=== PATIENT | male | born 1965 | race Caucasian/White ===

== ENCOUNTER 2023-11-04 17:29 | Emergency (ER) | payer OTHER, SELFPAY ==
[2023-11-04 17:30] VITALS: BP 134/99; PULSE 98; RESP 18; TEMP 36.6; O2SAT 97
--- NOTE | 2023-11-04 17:49 | EDS_ITS ---
HPI History of Present Illness Chief Complaint: Chest Pain Informant: patient and EMS Narrative Narrative: 58-year-old male presenting to the emergency room for evaluation of chest pain. Patient states he was sitting in a lawn chair outside when he developed some shortness of breath and then a tightness in the center of his chest that seem to radiate to the left arm. He reports a history of hypertension hypercholesterolemia that is not currently treated. He also notes a history of depression that is currently not treated. He was being seen by the [facility] but states he has not been there for about 3 to 4 months because he owes them about $500. He does not see anybody for mental health currently. He states he does not have any stents in his heart but that he has had several light heart attacks at [facility]. He has never been to our hospital before. He is currently feeling better. He did not experience any wheezing. He is small amount of coughing at the time. He chews tobacco but is a non- smoker. [facility] Medical History Depression Hypertension Hypercholesteremia Myocardial infarct Allergy/AdvReac Type Severity Reaction Status Date / Time Penicillins Allergy Severe Hives Verified 11/04/23 17:44 Social History Smoking Status: Former smoker ROS ROS ED Constitutional Constitutional ED: Denies chills, fever(s) or weight loss Eyes Eyes: Denies change in vision or diplopia ENT ENT ED: Denies ear pain, rhinorrhea or sore throat Cardiovascular Cardiovascular: Reports as per HPI and chest pain; Denies orthopnea, palpitations or racing heartbeat Respiratory/Chest Respiratory/Chest: Reports cough, dyspnea and dyspnea on exertion; Denies orthopnea Gastrointestinal Gastrointestinal: Denies abdominal pain, diarrhea, nausea or vomiting Genitourinary Genitourinary ED: Denies dysuria, hematuria or urinary frequency Musculoskeletal Musculoskeletal: Denies arthralgias or myalgias Integumentary Denies abscess or rash Neurologic Neurologic: Denies headache(s) or weakness Psychiatric Psychiatric: Denies anxiety, depression, suicidal ideation or suicidal thoughts Endocrine Endocrinology: Denies polydipsia, polyphagia or polyuria Allergic/Immunologic Allergic/Immunologic ED: Denies mouth swelling, tongue swelling or urticaria EXAM Physical Exam Const Vital Signs: 11/04/23 17:30 11/04/23 17:41 11/04/23 18:30 Temperature 98 F Temperature Source Oral Pulse Rate 98 81 Respiratory Rate 18 16 Respiratory Effort Normal Short of Breath Blood Pressure 134/99 H 143/101 H Blood Pressure Mean 110 115 Pulse Ox 97 97 Oxygen Delivery Method Room Air Room Air 11/04/23 19:00 11/04/23 20:00 11/04/23 20:56 Temperature 97 F L Temperature Source Pulse Rate 91 80 Respiratory Rate 16 16 Respiratory Effort Blood Pressure 144/108 H 150/115 H 160/99 H Blood Pressure Mean 120 126 119 Pulse Ox 96 Oxygen Delivery Method Positive well nourished and well developed General Appearance ED: well developed and NAD HEENT Reports normocephalic, head/scalp atraumatic and moist mucous membranes Eyes PERRL and EOMs intact bilaterally Neck no lymphadenopathy, supple and no JVD Resp normal respiratory effort and clear to auscultation bilaterally Cardio regular rate, regular rhythm and no murmurs GI normal to inspection, nondistended, normoactive bowel sounds and non-tender Palpation: soft Back/Spine no CVA tenderness and normal ROM Extremity normal to inspection General Extremety ED: Negative for edema General Extremity: Negative for edema Neuro oriented x3 and CN's II-XII intact bilaterally Sensorium / Orientation: alert Motor Exam: strength 5/5 throughout Psych mental status grossly normal Mood & Affect: Negative for depressed or tearful Skin no rashes or lesions noted and no wounds MDM MDM MDM Narrative Medical decision making narrative: Differential diagnosis would include but not limited to DVT PE aortic dissection pneumothorax pneumonia pleural effusion hypertension congestive heart failure bronchospasm Prehospital EKG was reviewed shows a sinus rhythm at a rate of 99 bpm. Q waves noted 3 and aVF. EMS administered aspirin prior to arrival. White count 7.9 hematocrit 47.2 platelet count of 2092 sets of cardiac enzymes are within normal limits. Creatinine 1.09 sodium 135 D-dimer 0.34. Patient said no events on the monitor he remains asymptomatic. I am going to discharge him home have him establish primary care return if worsening or concerns. History & Record Review Discussion w/independent historian: EMS personnel and Patient Lab Data Attestation: I reviewed the patient's lab results. Labs: Laboratory Results - last 24 hr 11/04/23 11/04/23 17:43 20:15 WBC 7.9 RBC 5.47 Hgb 16.9 H Hct 47.2 MCV 86.3 MCH 30.9 MCHC 35.8 RDW Std Deviation 37.2 RDW Coeff of Hue 11.9 Plt Count 209 MPV 10.9 Immature Gran % (Auto) 0.400 Neut % (Auto) 53.3 Lymph % (Auto) 33.6 Barber % (Auto) 8.9 Eos % (Auto) 2.8 Baso % (Auto) 1.0 Absolute Neuts (auto) 4.2 Absolute Lymphs (auto) 2.65 Nucleated RBC % 0 D-Dimer Quant (PE/DVT) 0.34 Sodium 135 L Potassium 3.6 Chloride 102 Carbon Dioxide 24.0 Anion Gap 9 BUN 13 Creatinine 1.09 Est GFR (MDRD) Af Amer 90 Est GFR (MDRD) Non-Af 74 BUN/Creatinine Ratio 11.9 Glucose 157 H Calcium 9.3 Troponin I High Sens 41 38 Radiography Diagnostic Testing: Clinical Impression(s) from Imaging Studies Chest X-Ray 11/04/23 18:10 IMPRESSION: Normal x-ray examination of the chest. Electronically Signed: Siddharth Huizar MD at 18:33 EDT , EKG Initial EKG: Attestation: I personally reviewed and interpreted this EKG as follows: Comments: Normal sinus rhythm ventricular rate of [address] elevation or significant depression noted. Discharge Plan Triage Chief Complaint: Chest Pain ED Provider: Rock Hurst Dx/Rx/DC Orders Clinical Impression: Chest pain Instructions: ED Chest Pain, Uncertain Cause [facility] - As soon as possible Print Language: Lebanese Disposition Disposition: Home, Self Care Discharge Date/Time: 11/04/23 20:57
--- NOTE | 2023-11-04 17:49 | EKG12_ITS ---
Test Reason : CHEST PAIN Blood Pressure : / mmHG Vent. Rate : 100 BPM Atrial Rate : 100 BPM P-R Int : 192 ms QRS Dur : 108 ms QT Int : 364 ms P-R-T Axes : 012 017 -07 degrees QTc Int : 469 ms Normal sinus rhythm Inferior infarct , age undetermined Cannot rule out Anterior infarct , age undetermined Abnormal ECG Confirmed by REAGAN MARTINEZ, WENDY ([id number]), assignment editor SAE ORTEGA ([id number]) on 11/08/2023 8:12:53 AM Referred By: Confirmed By:WENDY KIRK MD
[2023-11-04 18:05] LABS: Absolute Lymphocyte Count 2.65 X10^3/uL (0.83-4.51); Absolute Neutrophil Count 4.2 X10^3/uL (2.0-7.7); Basophil# 0.08 X10^3/uL; Eosinophil# 0.22 X10^3/uL; Eosinophils% 2.8 % (0-5); Hematocrit 47.2 % (40-54); Hemoglobin 16.9 g/dL (13.0-16.5); Lymphocyte # 2.65 X10^3/ul (0.83-4.51); Lymphocyte % 33.6 % (19-41); Mean Corp Hgb Conc 35.8 g/dL (32-36); Mean Corpuscular Hgb 30.9 pg (27.0-32.0); Mean Corpuscular Volume 86.3 fL (80-94); Mean Platelet Vol. 10.9 fl (6.2-12.0); Monocyte% 8.9 % (0-10); NRBC Flagged by Analyzer 0 % (0-5); Neutrophil % 53.3 % (47-70); Platelet Count 209 K/mm3 (150-450); RBC Distribution Width CV 11.9 % (11.6-14.6); RBC Distribution Width SD 37.2 fl (35.1-43.9); Red Blood Count 5.47 M/mm3 (4.6-6.2); White Blood Count 7.9 K/mm3 (4.4-11.0)
--- NOTE | 2023-11-04 18:10 | RAD_ITS ---
STUDY: X-RAY CHEST REASON FOR EXAM: Male, 58 years old. chest pain TECHNIQUE: Single AP portable view of the chest. COMPARISON: None. FINDINGS: The lungs are clear and expanded. There is no demonstrated pleural abnormality. Normal size heart. Normal mediastinum and liam. Normal visualized pulmonary arteries. Normal visualized aortic arch and descending thoracic aorta. Normal visualized thoracic spine. Normal visualized ribs, clavicles, and shoulders. There is no demonstrated abnormality of the visualized soft tissue structures of the upper abdomen. RAD/Chest 1 View (Portable) IMPRESSION: Normal x-ray examination of the chest. Electronically Signed: Siddharth Huizar MD at 18:33 EDT ,
[2023-11-04 18:16] LABS: D-Dimer Quantitative (DVT/PE) 0.34 FEU/ug/m (0.27-0.49)
[2023-11-04 18:30] VITALS: BP 143/101; PULSE 81; RESP 16; O2SAT 97
[2023-11-04 18:34] LABS: Anion Gap 9 (5-15); BUN 13 mg/dL (7-18); BUN/Creat Ratio 11.9 RATIO (10-20); Calcium,Total 9.3 mg/dL (8.5-10.1); Chloride 102 mmol/L (98-107); Creatinine, Serum 1.09 mg/dL (0.70-1.30); EST Glomerular Filtration Rate 74 mL/min (>60); Est Glom Filt Rate - Afr Amer 90 mL/min (>60); Glucose 157 mg/dL (74-106); Potassium 3.6 mmol/L (3.5-5.1); Sodium Level 135 mmol/L (136-145); Troponin-I HS (w/2H Reflex) 41 pg/mL (3.0-78.0)
[2023-11-04 19:00] VITALS: BP 144/108; PULSE 91; RESP 16
[2023-11-04 20:00] VITALS: BP 150/115
[2023-11-04 20:02] LABS: Reflex Troponin-HS? (from REC) Y
[2023-11-04 20:38] LABS: Troponin-I HS 38 pg/mL (3.0-78.0)
[2023-11-04 20:56] VITALS: BP 160/99; PULSE 80; RESP 16; TEMP 36.1; O2SAT 96
== END 2023-11-04 20:57 | disposition home or self-care (01) ==
PROVIDERS: Emergency Provider Emergency Medicine; Visit Provider Emergency Medicine
DX: R07.9 Chest pain, unspecified (principal); I10 Essential (primary) hypertension; F17.220 Nicotine dependence, chewing tobacco, uncomplicated; E78.00 Pure hypercholesterolemia, unspecified; I25.2 Old myocardial infarction
CPT/HCPCS: 71045; 80048; 84484; 85025; 85379; 93005; 99283; A4216

== ENCOUNTER 2024-11-30 14:30 | Inpatient (IN) | payer SELFPAY ==
[2024-11-30] VITALS (28 sets, daily range): BP systolic 98–219; BP diastolic 69–136; PULSE 49–99; RESP 12–24; TEMP 36.2–38.3; O2SAT 95–100; BMI 28.3; BMI 28.5
--- NOTE | 2024-11-30 14:54 | EKG12_ITS ---
Test Reason : Blood Pressure : */* mmHG Vent. Rate : 80 BPM Atrial Rate : 80 BPM P-R Int : 202 ms QRS Dur : 118 ms QT Int : 402 ms P-R-T Axes : 50 21 17 degrees QTcB Int : 463 ms Normal sinus rhythm Left ventricular hypertrophy with QRS widening ( Sokolow-Maya , Gregory product ) Abnormal ECG Confirmed by CHRIS MARTINEZ, ИВАН ([id number]), advertising editor SAE ORTEGA ([id number]) on 12/04/2024 6:02:03 AM Referred By: MAYNOR Confirmed By: ИВАН PEREZ MD
--- NOTE | 2024-11-30 15:12 | EX.ED.CRITCA ---
HPI History of Present Illness Chief Complaint: Sore Throat Detail of Chief Complaint: Sore throat that started couple days ago. Informant: patient Onset/Context/Timing Onset: Days Context: Gradual Onset Timing: Continuous Quality: Patient does not complain of pain he complains of difficulty speaking Location: Upper airway Mechanism/Context: Yes other Current Severity: Severe Maximum Severity: Severe Worsened by: JENNA inhibitor Relieved by: Nothing Associated Symptoms Associated Symptoms: cough Narrative Narrative: Patient is a 59-year-old male. He presents because of change in his voice, difficulty swallowing and increased swelling of his lower lip. He is on lisinopril. He is on no anticoagulant. He denied fever, chills night sweats. He denied rhinorrhea, congestion, postnasal drainage. He does not complain of throat pain he is having difficulty swallowing. He does report mild cough because of difficulty clearing his secretions. He has had some drooling. He denies chest pain, pressure, tightness or heaviness. He denies abdominal pain, nausea, vomiting or diarrhea. Prior similar symptoms: No Recent Illness/Hospitalization: No PFSH PFSH Medical History Depression Hypertension Hypercholesteremia Myocardial infarct Allergy/AdvReac Type Severity Reaction Status Date / Time Penicillins Allergy Severe Hives Verified 11/30/24 14:31 Family History no significant family his Social History Smoking Status: Former smoker ROS ROS ED Constitutional Constitutional ED: Denies chills, fever(s), subjective or sweats Eyes Eyes: Denies blurry vision or change in vision ENT ENT ED: Denies ear pain, rhinorrhea or sore throat Cardiovascular Cardiovascular: Denies chest pain, orthopnea, palpitations, paroxysmal nocturnal dyspnea or racing heartbeat Respiratory/Chest Respiratory/Chest: Denies cough, dyspnea, dyspnea on exertion, orthopnea or paroxysmal nocturnal dyspnea Gastrointestinal Gastrointestinal: Denies abdominal pain, diarrhea, nausea or vomiting Genitourinary Genitourinary ED: Denies dysuria, hematuria or urinary frequency Musculoskeletal Musculoskeletal: Denies arthralgias, myalgias or neck pain Integumentary Denies rash Neurologic Neurologic: Denies headache(s), paresthesias or weakness Hematologic/Lymphatic Hematologic/Lymphatic: Denies easy bleeding or easy bruising EXAM Physical Exam Const Vital Signs: 11/30/24 14:31 11/30/24 15:15 11/30/24 15:23 Temperature 98.7 F 97.6 F L Temperature Source Oral Core Pulse Rate 73 99 79 Respiratory Rate 24 H 15 13 Blood Pressure 172/108 H 181/124 H Blood Pressure Mean 129 143 Blood Pressure Position Supine Blood Pressure Location Right Arm Pulse Ox 97 100 95 Oxygen Delivery Method Room Air Mechanical Ventilator Fraction of Inspired Oxygen (FIO2) 40 11/30/24 15:45 11/30/24 15:45 11/30/24 16:00 Temperature Temperature Source Pulse Rate 71 72 83 Respiratory Rate 18 19 H Blood Pressure 196/120 H 196/120 H 208/125 H Blood Pressure Mean 145 145 152 Blood Pressure Position Blood Pressure Location Pulse Ox 100 Oxygen Delivery Method Mechanical Ventilator Fraction of Inspired Oxygen (FIO2) 11/30/24 16:05 11/30/24 16:15 11/30/24 16:15 Temperature 97.6 F L Temperature Source Pulse Rate 67 68 Respiratory Rate 14 15 Blood Pressure 208/125 H 219/128 H Blood Pressure Mean 152 158 Blood Pressure Position Blood Pressure Location Pulse Ox 100 Oxygen Delivery Method Fraction of Inspired Oxygen (FIO2) 30 11/30/24 16:19 11/30/24 16:30 11/30/24 16:41 Temperature 98 F Temperature Source Core Pulse Rate 71 73 Respiratory Rate 18 20 H Blood Pressure 203/124 H Blood Pressure Mean 150 Blood Pressure Position Blood Pressure Location Pulse Ox 100 99 Oxygen Delivery Method Mechanical Ventilator Mechanical Ventilator Fraction of Inspired Oxygen (FIO2) 30 11/30/24 16:51 11/30/24 16:52 11/30/24 16:59 Temperature 98.1 F Temperature Source Core Pulse Rate 65 67 98 Respiratory Rate 19 H 15 17 Blood Pressure 175/109 H 175/109 H Blood Pressure Mean 131 131 Blood Pressure Position Blood Pressure Location Pulse Ox 100 100 Oxygen Delivery Method Mechanical Ventilator Mechanical Ventilator Fraction of Inspired Oxygen (FIO2) 11/30/24 17:08 Temperature Temperature Source Pulse Rate 61 Respiratory Rate 15 Blood Pressure 171/136 H Blood Pressure Mean 147 Blood Pressure Position Blood Pressure Location Pulse Ox 100 Oxygen Delivery Method Mechanical Ventilator Fraction of Inspired Oxygen (FIO2) Positive well nourished and well developed Constitutional Narrative: Patient has a muffled voice. He admits to difficulty swallowing and throat swelling. General Appearance ED: well developed; Negative for pallor HEENT HEENT Narrative: Patient has swelling of his lower lip in comparison to the upper. His tongue is enlarged. Uvula is slightly edematous. Patient has fullness predominantly submental area. There is no firmness floor of the mouth. Patient does have poor dentition. He denies inability to open or close his mouth completely. normocephalic and atraumatic Eyes PERRL and EOMs intact bilaterally General Eye ED: Negative for pale conjunctiva or scleral icterus Neck full ROM, no lymphadenopathy and supple Neck Narrative: Patient has both inspiratory and expiratory stridor. Chest Wall Chest Narrative: Normal Resp Resp Narrative: Transmission of upper airway sounds into his lungs. There is no expiratory wheezing. There is no rales noted. Cardio regular rate, regular rhythm, S1 normal heart sound, S2 normal heart sound and no murmurs GI non-tender, non-distended and no masses Auscultation: normoactive bowel sounds Palpation: soft Extremity Extremity Narrative: There is no clubbing, cyanosis or mottling of his extremities. Neuro oriented x3, CN's II-XII intact bilaterally and no sensory deficits noted Sensorium / Orientation: alert Speech: Negative for speech normal Skin General Skin Exam: Negative for jaundice or pallor Lesions: no lesions Rashes: no rashes MDM MDM MDM Narrative Medical decision making narrative: Patient has angioedema due to JENNA inhibitor. Patient was moved from room 16 to room 1. He was prepped for oral tracheal intubation by RSI technique. He was preoxygenated with 100% oxygen by nonrebreather mask. He received 20 mg of etomidate followed by 71 mg of rocuronium. He was intubated successfully first attempt with a 7.5 endotracheal tube. Patient may have aspirated since there was a collection of secretions near the epiglottis, aryepiglottic fold and vocal cords. Endotracheal tube is 24 cm at the gum. There is appropriate color change on the capnometer. Breath sounds were noted bilaterally. Orogastric tube was placed by me. Naik has been placed by nursing staff. History & Record Review Discussion w/independent historian: Patient Lab Data Attestation: I reviewed the patient's lab results. Lab results narrative: CBC is normal. Basic metabolic panel and liver profile normal. Labs: Laboratory Results - last 24 hr 11/30/24 15:00 WBC 8.3 RBC 5.07 Hgb 16.0 Hct 45.2 MCV 89.2 MCH 31.6 MCHC 35.4 RDW Std Deviation 37.5 RDW Coeff of Hue 11.7 Plt Count 192 MPV 10.3 Immature Gran % (Auto) 0.400 Neut % (Auto) 67.4 Lymph % (Auto) 18.2 L Brooks % (Auto) 11.8 H Eos % (Auto) 1.4 Baso % (Auto) 0.8 Absolute Neuts (auto) 5.6 Absolute Lymphs (auto) 1.51 Nucleated RBC % 0 Sodium 138 Potassium 4.0 Chloride 103 Carbon Dioxide 24.2 Anion Gap 11 BUN 14 Creatinine 0.76 Estim Creat Clear Calc 117.13 Est GFR (MDRD) Non-Af 105 BUN/Creatinine Ratio 18.7 Glucose 91 Calcium 9.5 Total Bilirubin 0.58 AST 14 ALT 10 Alkaline Phosphatase 79 Total Creatine Kinase 59 Total Protein 7.4 Albumin 4.4 Globulin 3.0 Albumin/Globulin Ratio 1.5 Triglycerides 122 ABG Data ABG results: ABG 11/30/24 16:18 Specimen Type ART Sample Site L Brach pH 7.48 H Bicarbonate Actual 27.7 H Total CO2 29 Base Excess 4 H O2 Saturation 96 O2 % 30.0 ABG pCO2 37.4 ABG pO2 78 Norbert Test Positive Respiration Rate 12 O2 Delivery Device Adult Vent Vent Mode AC/VC Tidal Volume 450.0 POC PEEP 5 Radiography Chest X-Ray - ED: 1 View and Read by ED Physician (Single view chest x-ray reveals orogastric tube in proper position. Endotracheal tube was advanced to additional centimeter. He does not have good inspiratory volume.) Diagnostic Testing: Clinical Impression(s) from Imaging Studies Chest X-Ray 11/30/24 15:23 IMPRESSION: Hypoventilation. Platelike atelectasis. Nasogastric tube is in place. Consider advancing 4-6 cm for more optimal positioning. Satisfactory position of the endotracheal tube. Reading Location: [id number] Initial EKG: Attestation: I personally reviewed and interpreted this EKG as follows: Interpretation: Sinus Rhythm (Rate is 80. SC interval is 202 ms. Cures duration is prolonged at 118 ms QT is 402 ms. Toivola is normal. There is evidence of LVH with nonseptic changes/repolarization. There is no acute ischemic changes.) Management Discussion w/another healthcare provider: Hospitalist ( Will speak with Dr. Vicente for admission for angioedema due to JENNA inhibitor.) Critical Care Time Critical Care Time: Yes Critical care time (excluding procedures): 30-74 minutes (33), Including time spent: (History, physical, documentation, explaining to the patient what needed to be done and why.), Discussing w/Patient &/or Family/[employer] Car Operator, Discussing w/Consultants (Hospitalist and cfo controller.), Arranging Admission or Transfer and Performing Direct Patient Care at Bedside Discharge Plan Dx/Rx/DC Orders Clinical Impression: Angioedema of intestine due to angiotensin converting enzyme inhibitor (JENNA-I), Biphasic stridor, Hypertension Disposition Disposition: Acute Care Hospital [facility]
[2024-11-30] MEDS: 0.9% Normal Saline (1000mL) 1,000 ML 150 ML IV ×2 (15:17→20:12)
[2024-11-30 15:20] LABS: Hematocrit 45.2 % (40-54); Hemoglobin 16.0 g/dL (13.0-16.5); Immature Granulocytes Count 0.030 X10^3/uL (0.0-0.0); Mean Corp Hgb Conc 35.4 g/dL (32-36); Mean Corpuscular Volume 89.2 fL (80-94); Mean Platelet Vol. 10.3 fl (6.2-12.0); NRBC Flagged by Analyzer 0 % (0-5); Platelet Count 192 K/mm3 (150-450); RBC Distribution Width CV 11.7 % (11.6-14.6); RBC Distribution Width SD 37.5 fl (35.1-43.9); Red Blood Count 5.07 M/mm3 (4.6-6.2); White Blood Count 8.3 K/mm3 (4.4-11.0)
[2024-11-30] MEDS: Propofol 10MG/Ml 1,000 MG/100 ML Bottle 5.2 MG CONT INF (15:23)
--- NOTE | 2024-11-30 15:23 | RAD_ITS ---
PROCEDURE: CHEST 1 VIEW (PORTABLE) 11/30/2024 REASON FOR EXAM: INTUBATION TECHNIQUE: Frontal view of the chest. COMPARISON: November 04, 2023 FINDINGS: Hardware: Endotracheal tube is in satisfactory position above the layne. Nasogastric tube is in place and follows the course of the esophagus and crosses the diaphragm. The side hole is near the GE junction. The tip is overlying the body of the stomach. Heart: Mildly enlarged. Lungs: Hypoventilation. Platelike atelectasis right perihilar region and left lower lobe. Bones: The bones are unremarkable. RAD/Chest 1 View (Portable) IMPRESSION: Hypoventilation. Platelike atelectasis. Nasogastric tube is in place. Consider advancing 4-6 cm for more optimal posit ioning. Satisfactory position of the endotracheal tube. Reading Location: [id number]
--- NOTE | 2024-11-30 15:33 | ED.RN ---
Pt intubated at 1510
[2024-11-30 15:46] LABS: AST(SGOT) 14 U/L (<=37); Alanine Aminotransfer ALT/SGPT 10 U/L (<=46); Albumin, Serum 4.4 g/dL (3.5-5.0); Alkaline Phosphatase 79 U/L (40-129); Anion Gap 11 (5-15); BUN 14 mg/dL (4-19); BUN/Creat Ratio 18.7 RATIO (10-20); Calcium,Total 9.5 mg/dL (7.6-11.0); Carbon Dioxide 24.2 mmol/L (21.0-32.0); Chloride 103 mmol/L (98-108); Estimated Creatinine Clearance 117.13 ml/min (50-250); Globulin 3.0 g/dL (2.2-4.2); Glucose 91 mg/dL (70-99); Potassium 4.0 mmol/L (3.3-5.1)
--- NOTE | 2024-11-30 15:57 | PCM.HP.STD ---
HPI - General General Date of Admission: 11/30/24 Date of Service: 11/30/24 Chief Complaint: Lip swelling and difficulty swallowing HPI Narrative BENJAMIN HAWKINS, is a 59 M who presented to [facility] ED on 11/30/2024 with lip swelling and difficulty swallowing. Medical history significant for hypertension. Unclear how long patient has been on an JENNA inhibitor for. Last dose was this morning. No prior history of angioedema. He reports a sore throat that began a few days ago. Over that time frame he has noticed increased lip swelling, difficulty swallowing and change in his voice. ED physician noted that on exam the patient had swelling of the lower lip compared to the upper, enlarged tongue, uvula slightly edematous and fullness in the submental area. Given concern for angioedema, decision was made to intubate the patient in the ED. ED physician noted some swelling in the palate during intubation but the intubation was successful. Hospitalist was then contacted for admission. I saw the patient bedside in the ED. Patient was sedated and intubated. He was making some nonpurposeful movements but was not following any commands. Will be admitted for further management. [facility] Medical History Depression Hypertension Hypercholesteremia Myocardial infarct Allergy/AdvReac Type Severity Reaction Status Date / Time Penicillins Allergy Severe Hives Verified 11/30/24 14:31 Family History no significant family his Social History Smoking Status: Former smoker ROS Review of Systems ROS Unobtainable: due to endotracheal tube Vital Signs Vital Signs Vital Signs: 11/30/24 14:31 11/30/24 15:23 11/30/24 15:45 Temperature 98.7 F 97.6 F L Temperature Source Oral Core Pulse Rate 73 79 71 Respiratory Rate 24 H 13 18 Blood Pressure 172/108 H 181/124 H 196/120 H Blood Pressure Mean 129 143 145 Blood Pressure Position Supine Blood Pressure Location Right Arm Pulse Ox 97 95 100 Oxygen Delivery Method Room Air Mechanical Ventilator Mechanical Ventilator Weight Weight: 87 kg Body Mass Index (BMI) 28.3 Physical Exam Const average body habitus Constitutional Narrative: Intubated and sedated. Nonpurposeful movements noted but otherwise not following commands. HEENT normocephalic, head/scalp atraumatic and moist oral mucous membranes HEENT Narrative: ET tube in place. Lower lip swelling noted. Eyes PERRL, EOMs intact bilaterally and conjunctivae normal Neck supple Chest inspection of chest normal Resp Resp Narrative: Moderate rhonchi noted in mid lung zone on the right. Otherwise good air movement throughout bilaterally with no wheezing noted. Cardio regular rate, regular rhythm, no murmurs and peripheral pulses 2+ throughout GI normal to inspection, nondistended, normoactive bowel sounds, soft to palpation, non-tender and non-distended Extremity normal to inspection and no pedal edema Skin no rashes or lesions noted Results Lab / Micro Data 11/30/24 15:00 11/30/24 15:00 Labs: Laboratory Results - last 24 hr 11/30/24 15:00: WBC 8.3, RBC 5.07, Hgb 16.0, Hct 45.2, MCV 89.2, MCH 31.6, MCHC 35.4, RDW Std Deviation 37.5, RDW Coeff of Hue 11.7, Plt Count 192, MPV 10.3, Immature Gran % (Auto) 0.400, Neut % (Auto) 67.4, Lymph % (Auto) 18.2 L, [place] % (Auto) 11.8 H, Eos % (Auto) 1.4, Baso % (Auto) 0.8, Absolute Neuts (auto) 5.6, Absolute Lymphs (auto) 1.51, Nucleated RBC % 0, Sodium 138, Potassium 4.0, Chloride 103, Carbon Dioxide 24.2, Anion Gap 11, BUN 14, Creatinine 0.76, Estim Creat Clear Calc 117.13, Est GFR (MDRD) Non-Af 105, BUN/Creatinine Ratio 18.7, Glucose 91, Calcium 9.5, Total Bilirubin 0.58, AST 14, ALT 10, Alkaline Phosphatase 79, Total Protein 7.4, Albumin 4.4, Globulin 3.0, Albumin/Globulin Ratio 1.5 Imaging Radiology Impression Chest X-Ray 11/30/24 15:23 IMPRESSION: Hypoventilation. Platelike atelectasis. Nasogastric tube is in place. Consider advancing 4-6 cm for more optimal positioning. Satisfactory position of the endotracheal tube. Reading Location: [facility] Assessment & Plan Assessment/Plan (1) Angioedema: PLAN: Plan Patient is a 59-year-old male who presented to [facility] ED on 11/30/2024 with lip swelling and difficulty swallowing. 1. Angioedema ? Admit under inpatient status to ICU. Set O Type Operator consulted. Presented with lip swelling, difficulty swallowing and change in voice. Intubated in the ED for airway protection. Unclear how long patient has been on JENNA inhibitor; last dose was on morning of admission. No prior history of angioedema. Highest concern is for JENNA inhibitor induced angioedema but cannot rule out other causes. C4 complement, ESR and CRP ordered. Will discontinue JENNA inhibitor. Will hold off on additional treatment such as steroids or antihistamines for now. Ventilator management per channel executive. 2. Concern for aspiration pneumonitis versus pneumonia ? Patient intubated in the ED on admit as above. Chest x-ray with mild bibasilar atelectasis, otherwise unremarkable. However, patient had significant secretions suctioned postintubation and had rhonchorous breath sounds noted especially on the right. Will need to monitor for signs/symptoms of aspiration pneumonitis versus pneumonia. Will hold off on antibiotics at this time. 3. Hypertension ? Patient hypertensive to the 170s over 100s on admit. BP remained elevated postintubation but unclear if this was secondary to inadequate sedation. Will start IV hydralazine 10 mg every 4 hours as needed for SBP greater than 170. JENNA inhibitor discontinued as above. Does not appear patient was on any other antihypertensives at home. Can consider starting another p.o. antihypertensive as needed. DVT prophylaxis: Lovenox CODE STATUS: Full code, verified Expected disposition: TBD Total clinical time spent by myself addressing the patient's medical issues, reviewing all the data, and collaborating with patient's care team: 76 minutes. Charges/Coding Visit Charges Inpatient E&M: 55861 Init Hosp L3
--- NOTE | 2024-11-30 16:04 | ED.RN ---
Sister in law and son updated on Pt status
[2024-11-30 16:19] LABS: CPK Total, Creatine Kinase 59 U/L (24-195); Triglycerides 122 mg/dL
[2024-11-30 16:23] LABS: Allen Test Positive; Base Excess 4 mmol/L (-2 to +2); FI02 30.0; PEEP 5; PO2 78 mmHG (75-100); RR 12; SITE L Brach; SO2 96 % (95-99)
[2024-11-30] MEDS: fentaNYL 100 MCG/2 ML Ampul 50 MCG IV (16:47)
[2024-11-30] MEDS: fentaNYL drip 100 ML 2.5 MCG CONT INF (17:21)
[2024-11-30] MEDS: Propofol 10MG/Ml 1,000 MG/100 ML Bottle 26.1 MG CONT INF ×2 (18:20→21:47)
[2024-11-30] MEDS: Magnesium Sulfate 4gm/100mL 4 GM/100 ML IV.SOLN. IV (20:03)
[2024-11-30] MEDS: 0.9% Normal Saline (250mL Bag) 250 ML 15 ML IV (20:06)
[2024-11-30] MEDS: Chlorhexidine 15 ML PO (22:37)
[2024-11-30 22:49] LABS: CRP 50.20 mg/L (0.0-3.0)
--- NOTE | 2024-11-30 23:39 | CON.PCM.CC_ITS ---
HPI Consult Data Date of Consult: 11/30/24 HPI Narrative HPI Narrative: Mr. Gutierrez is a 59 year-old gentleman with HTN, HLD, and MDD who presents with acute respiratory failure. He presented to [facility] with 2-3 days of lip swelling, difficulty swallowing, and a sore throat, and upon arrival, his physical examination revealed swollen lips, a swollen tongue, and copious secretions. He was thus intubated and sedated. Laboratory data was unremarkable, and CXR revealed some possible atelectassis vs. air space disease. On my examination, he remains intubated, sedated, and with stable vital signs. [facility] Medical History Depression Hypertension Hypercholesteremia Myocardial infarct Allergy/AdvReac Type Severity Reaction Status Date / Time Penicillins Allergy Severe Hives Verified 11/30/24 14:31 Family History no significant family his Social History Smoking Status: Former smoker ROS ROS Narrative Intubated and Sedated Objective Data Objective Data Vital Signs: Vital Signs Last response 3 Temperature 38.3 C H 11/30/24 23:00 Temperature Source Core 11/30/24 23:00 Pulse Rate 73 11/30/24 23:00 Pulse Strength Normal (2+) 11/30/24 22:07 Respiratory Rate 16 11/30/24 23:00 Respiratory Effort Normal, Non-Labored 11/30/24 20:00 Respiratory Depth Normal 11/30/24 20:00 Respiratory Pattern Normal 11/30/24 20:00 Blood Pressure 130/80 H 11/30/24 23:00 Blood Pressure Mean 96 11/30/24 23:00 Blood Pressure Source Monitor 11/30/24 23:00 Blood Pressure Position Semi-Fowlers 11/30/24 23:00 Blood Pressure Location Right Arm 11/30/24 23:00 Pulse Ox 100 11/30/24 23:00 Oxygen Delivery Method Mechanical Ventilator 11/30/24 23:00 Fraction of Inspired Oxygen (FIO2) 30 11/30/24 23:00 I&O: I&O Last 24 Hours 3 11/29/24 11/30/24 11/30/24 23:59 11:59 23:59 Intake Total 1314.31 / 1314.31 Output Total 450 / 450 Balance 864.31 / 864.31 I&O: Total Stay 3 11/30/24 14:30 thru 11/30/24 23:09 Intake Total 1314.31 Output Total 450 Balance 864.31 Current Meds Ordered / Administered: Current meds ordered / Administered 3 Generic Name Dose Route Start Last Admin Trade Name Freq PRN Reason Stop Dose Admin Acetaminophen 650 mg 11/30/24 18:59 Acetaminophen 325 Mg Tablet PO Q6H PRN PRN Pain 1-10 Or Fever>100.7 Chlorhexidine Gluconate 15 ml 11/30/24 22:00 11/30/24 22:37 Chlorhexidine 15 Ml PO 15 ml BID EDUARDO Administration Diphenhydramine HCl 50 mg 11/30/24 23:45 Diphenhydramine 50 Mg/Ml Syringe IV Q6H EDUARDO Enoxaparin Sodium 40 mg 12/01/24 10:00 Enoxaparin 40 Mg/0.4 Ml Syringe SC DAILY EDUARDO Fentanyl Citrate 50 mcg 11/30/24 18:59 Fentanyl 100 Mcg/2 Ml Ampul IV Q2H PRN PRN Pain >/= 4/10 or CPOT>/= 3/8 Hydralazine HCl 10 mg 11/30/24 18:59 Hydralazine 20 Mg/Ml Vial IV Q4H PRN PRN SBP GREATER THAN 170 Protocol Sodium Chloride 1,000 mls @ 150 mls/hr 11/30/24 14:55 11/30/24 22:45 IV Not Given .Q6H40M EDUARDO Propofol 1,000 mg in 100 mls @ 5.22 mls/hr 11/30/24 14:55 11/30/24 23:00 Diprivan CONT INF 50 mcg/kg/min .Q12H EDUARDO 26.1 mls/hr Protocol Titration 10 MCG/KG/MIN Fentanyl 100 mls @ 2.5 mls/hr 11/30/24 16:45 11/30/24 23:00 CONT INF 100 mcg/hr UD EDUARDO 10 mls/hr Protocol Titration 25 MCG/HR Sodium Chloride 250 mls @ 15 mls/hr 11/30/24 19:06 11/30/24 20:06 IV 15 mls/hr .[id number] PRN Administration Saline Flush Sodium Chloride 250 mls @ 15 mls/hr 11/30/24 19:06 IV .[id number] PRN Additional IVPB Infusion Metronidazole 500 mg in 100 mls @ 100 mls/hr 11/30/24 23:35 Flagyl IV Q8 EDUARDO Famotidine 20 mg/ Sodium 10 mls @ 300 mls/hr 11/30/24 23:35 Chloride IV Q12 EDUARDO Methylprednisolone Sodium Succinate 40 mg 12/01/24 00:00 Methylprednisolone Sod Succ 40 Mg/Ml Vial IV Q6 EDUARDO Ondansetron HCl 4 mg 11/30/24 18:59 Ondansetron 4 Mg/2 Ml Vial IV Q8H PRN PRN NAUSEA/VOMITING Sodium Chloride 10 - 40 ml 11/30/24 19:06 0.9% Saline Lock 10 Ml Syringe IV UD PRN SALINE FLUSH Physical Exam Narrative GENERAL: INTUBATED AND SEDATED HEENT: PERRLA; EOMI; anicteric NECK: soft, supple, no JOSE A; no JVP; no TM CV: RRR; -m/r/g RESP: CTAB; no wheezes, crackles or rhonchi ABD: soft, NT, ND, ABS x 4 EXT: WWP; no C/C/E NEURO: DEFERRED Lab / Micro Data 11/30/24 15:00 11/30/24 15:00 Labs: Laboratory Results - last 24 hr 11/30/24 15:00: WBC 8.3, RBC 5.07, Hgb 16.0, Hct 45.2, MCV 89.2, MCH 31.6, MCHC 35.4, RDW Std Deviation 37.5, RDW Coeff of Hue 11.7, Plt Count 192, MPV 10.3, Immature Gran % (Auto) 0.400, Neut % (Auto) 67.4, Lymph % (Auto) 18.2 L, [place] % (Auto) 11.8 H, Eos % (Auto) 1.4, Baso % (Auto) 0.8, Absolute Neuts (auto) 5.6, Absolute Lymphs (auto) 1.51, Nucleated RBC % 0, ESR 20, Sodium 138, Potassium 4.0, Chloride 103, Carbon Dioxide 24.2, Anion Gap 11, BUN 14, Creatinine 0.76, Estim Creat Clear Calc 117.13, Est GFR (MDRD) Non-Af 105, BUN/Creatinine Ratio 18.7, Glucose 91, Calcium 9.5, Total Bilirubin 0.58, AST 14, ALT 10, Alkaline Phosphatase 79, Total Creatine Kinase 59, C-React Prot Ext Range 50.20 H, Total Protein 7.4, Albumin 4.4, Globulin 3.0, Albumin/Globulin Ratio 1.5, Triglycerides 122 ABG Data ABG results: ABG 11/30/24 16:18 Specimen Type ART Sample Site L Brach pH 7.48 H Bicarbonate Actual 27.7 H Total CO2 29 Base Excess 4 H O2 Saturation 96 O2 % 30.0 ABG pCO2 37.4 ABG pO2 78 Norbert Test Positive Respiration Rate 12 O2 Delivery Device Adult Vent Vent Mode AC/VC Tidal Volume 450.0 POC PEEP 5 Imaging Radiology Impression Chest X-Ray 11/30/24 15:23 IMPRESSION: Hypoventilation. Platelike atelectasis. Nasogastric tube is in place. Consider advancing 4-6 cm for more optimal positioning. Satisfactory position of the endotracheal tube. Reading Location: [id number] Assessment and Plan . Assessment and plan: DRIPS Propofol Fentanyl VENTILATOR AC/450/12/P5/30% ANTIBIOTICS AND STEROIDS Flagyl Solumedrol ASSESSMENT 1. Acute Respiratory Failure 2. Angioedema 3. Hypertension 4. Hyperlipidemia 5. Major Depressive Disorder PLAN 1. Vent check made; no changes for now 2. Solumedrol 40q6 3. Benadryl 50q6 4. Famotidine 20q12 5. Empiric Flagyl for aspiration; has become febrile Lovenox/Famotidine Critical Care Time: 60 Minutes The entirety of this encounter was done via telemedicine with audio and visual. Consent was not able to be obtained for a telemedicine encounter due to the patient being intubated and sedated. Robb Jackson MD Pulmonary and Critical Care Medicine
[2024-12-01] VITALS (35 sets, daily range): BP systolic 90–148; BP diastolic 56–85; PULSE 35–85; RESP 12–21; TEMP 37.1–38.4; O2SAT 95–100; BMI 28.3
[2024-12-01] MEDS: Famotidine 200 MG/20 ML MDV 20 MG in 0.9% Normal Saline (Pres. free 8 ML 300 MG IV ×3 (00:14→21:01)
[2024-12-01] MEDS: metroNIDAZOLE 500 MG/100 ML BAG 100 MG IV ×2 (00:15→05:19)
[2024-12-01] MEDS: DiphenhydrAMINE 50 MG/ML Syringe IV ×5 (00:17→23:35)
[2024-12-01] MEDS: 0.9% Saline Lock 10 ML Syringe IV ×2 (00:18→18:18)
[2024-12-01] MEDS: Propofol 10MG/Ml 1,000 MG/100 ML Bottle 18.3 MG CONT INF (00:33)
--- OUTSIDE RECORDS SUMMARY | 2024-12-01 00:45 | XMS RPT_ITS | CCD ---
Author Organization [facility] Care Team Providers Care Lap Cutter Name Role Phone UNKNOWN, PROVIDER Unavailable Unavailable LISHNEVSKI, BARBARA Unavailable Unavailable UNKNOWN, PROVIDER Unavailable Unavailable Vinicius Shaffer Unavailable Unavailable LISHNEVSKI, BARBARA Unavailable Unavailable UNKNOWN, PROVIDER Unavailable Unavailable LISHNEVSKI, BARBARA Unavailable Unavailable UNKNOWN, PROVIDER Unavailable Unavailable Cain Jaffe Unavailable Unavailable LISHNEVSKI, BARBARA Unavailable Unavailable UNKNOWN, PROVIDER Unavailable Unavailable UNKNOWN, PROVIDER Unavailable Unavailable LISHNEVSKI, BARBARA Unavailable Unavailable UNKNOWN, PROVIDER Unavailable Unavailable UNKNOWN, PROVIDER Unavailable Unavailable LISHNEVSKI, BARBARA Unavailable Unavailable UNKNOWN, PROVIDER Unavailable Unavailable Ahmed, Arif Unavailable Unavailable Unavailable Primary Care Provider UnavailValeriy Grace DO Unavailable Parviz Smith MD Primary Care Provider [phone] [facility] Primary Care Unavailable Rock Hurst Attending Unavailable Valeryi Jimenez DO Unavailable Eugene Cavanaugh Primary Care Provider CJ PERAZA Referring Unavailable EUGENE CAVANAUGH Primary Care UnavailCJ Veronica Referring Unavailable EUGENE CAVANAUGH Primary Care UnavailCJ Veronica Referring Unavailable EUGENE CAVANAUGH Primary Care Unavailfarzana green Allergies Allergy Classification Reported Allergen(s) Allergy Type Date of Onset Reaction(s) Facility (9 sources) Penicillins; Translations: [Penicillins] Propensity to adverse reactions to drug 3 Anaphylaxis, Swelling [facility] (1 source) PARoxetine Drug Allergy 1 [facility] (1 source) Sertraline Drug Allergy 1 [facility] Work Phone: (6 sources) LORazepam; Translations: [LORAZEPAM] Drug Allergy 1 Mental Status Change [facility] Work Phone: Medications Current Medications Medication Drug Class(es) Dates Sig (Normalized) Sig (Original) aspirin 81 mg chewable tablet (4 sources) Platelet Aggregation Inhibitor, Nonsteroidal Anti-inflammatory Drug Start: 08-23-2021 End: 09-24-2021 take 1 tablet by mouth once daily aspirin 81 mg chewable tablet Take 1 tablet by mouth once daily. 30 tablet 08/25/2021 11:55 AM EDT 08/23/2021 Active Start: 09-17-2020 take 1 tablet by randee th once daily aspirin, enteric coated (ECOTRIN LOW STRENGTH) 81 mg EC tablet Indications: Chest pain, unspecified type , Thoracic ascending aortic aneurysm (HCC) , Essential hypertension , Mixed hyperlipidemia , Family history of premature CAD , JERNIGAN (dyspnea on exertion) Take 1 tablet by mouth once daily. 0 09/17/2020 Suspended Comment on above: Take 1 tablet by randee th once daily. atenolol 25 mg oral tablet (5 sources) beta-Adrenergic Maynor Start: 08-22-2021 End: 09-24-2021 take 1 tablet by mouth once daily atenolol (TENORMIN) 25 mg tablet Indications: Primary hypertension , Tremor Take 1 tablet by mouth once daily. 30 tablet 08/25/2021 11:55 AM EDT 08/22/2021 Active Start: 01-24-2021 take 1 tablet by randee th once daily atenolol (TENORMIN) 25 mg tablet Indications: Primary hypertension , Tremor Take 1 tablet by mouth once daily. 0 01/24/2021 Suspended atenolol (TENORM IN) 50 MG tablet 1 tab(s) 0 Active Comment on above: Take 1 tablet by randee th once daily. atorvastatin 20 mg oral tablet (3 sources) HMG-CoA Reductase Inhibitor Start: 2 End: 2 take 1 tablet by mouth once daily at bedtime atorvastatin (LIPITOR) 20 mg tablet Take 1 tablet by mouth daily at bedtime. 30 tablet 08/25/2021 11:55 AM EDT 08/22/2021 Active End: 01-21-2021 atorvastatin (LIPITOR) 20 MG tablet 1 tab(s) 0 01/21/2021 Discontinued (LIST CLEANUP) Comment on above: Take 1 tablet by randee th daily at bedtime. benztropine mesylate 1 mg oral tablet (2 sources) Anticholinergic, Antihistamine Start: End: take 1 tablet by mouth twice daily benztropine (COGENTIN) 1 mg tablet Take 1 tablet by mouth twice daily. 60 tablet 08/25/2021 11:55 AM EDT 08/22/2021 Active Comment on above: Take 1 tablet by randee th twice daily. dicyclomine hydrochloride 10 mg oral capsule (2 sources) Anticholinergic Start: take 1 capsule by mouth four times daily before mealtime dicyclomine (BENTYL) 10 MG capsule Indications: GERD without esophagitis , Essential hypertension , Acute maxillary sinusitis, recurrence not specified , Other depression , Acute pain of left shoulder Take 1 capsule by mouth 4 times daily (before meals and nightly) 120 capsule 0 01/21/2016 Active famotidine 40 mg oral tablet (1 source) Histamine-2 Receptor Antagonist Start: 021 famotidine (PEPCID) 40 MG tablet 1 tab(s) 0 01/17/2021 Active FLUoxetine 20 mg oral tablet (1 source) Serotonin Reuptake Inhibitor Start: 021 FLUoxetine (PROZAC) 20 MG tablet 1 tab(s) 0 01/17/2021 Active fluticasone propionate 0.05 mg/actuat metered dose nasal spray (3 sources) Corticosteroid Start: 017 fluticasone (FLONASE) 50 MCG/ACT nasal spray Indications: Acute maxillary sinusitis, recurrence not specified , Essential hypertension , GERD without esophagitis , Other depression , Acute pain of left shoulder 1 spray by Nasal route daily 1 Bottle 0 06/26/2016 Active fluticasone prop ionate (FLOVENT) 50 MCG/BLIST AEPB inhaler 1 spray(s) 0 Active hydroCHLOROthiazide 12.5 mg oral tablet (4 sources) Thiazide Diuretic Start: 08-22-2021 End: 09-24-2021 take 1 tablet by mouth once daily hydroCHLOROthiazide (HYDRODIURIL, ESIDRIX) 12.5 mg tablet Take 1 tablet by mouth once daily. 30 tablet 08/25/2021 11:55 AM EDT 08/22/2021 Active take 1 tablet by mouth once cyndi y hydroCHLOROthiazide (HYDRODIURIL, ESIDRIX) 12.5 mg tablet Take 12.5 mg by mouth once daily. 0 Suspended Comment on above: Take 12.5 mg by mout h once daily. Take 1 tablet by randee th once daily. levocetirizine dihydrochloride 5 mg oral tablet (1 source) Histamine-1 Receptor Antagonist levocetirizine (XYZAL) 5 MG tablet 1 tab(s) 0 Active loratadine 10 mg oral tablet (1 source) loratadine (CLARITIN) 10 MG tablet 1 tab(s) 0 Active losartan potassium 100 mg oral tablet (1 source) Angiotensin 2 Receptor Maynor losartan (COZAAR) 100 MG tablet 1 tab(s) 0 Active mupirocin 0.02 mg/mg topical ointment (1 source) RNA Synthetase Inhibitor Antibacterial Start: 2021 End: 2021 mupirocin (BACTROBAN) 2 % ointment Apply to affected area three times daily for 5 days. 22 g 0 08/22/2021 08/30/2021 Active Comment on above: Apply to affected ar ea three times daily for 5 days. naproxen 375 mg oral tablet (2 sources) Nonsteroidal Anti-inflammatory Drug Start: 2016 take 1 tablet by mouth twice daily as needed for pain naproxen (NAPROSYN) 375 MG tablet Take 1 tablet by mouth 2 times daily as needed for Pain 12 tablet 0 11/21/2016 Active 24 hr nicotine 0.875 mg/hr transdermal system (3 sources) Cholinergic Nicotinic Agonist Start: 2021 apply 1 dose transdermal route once daily nicotine (NICODERM) 21 mg/24 hr Apply 1 Patch as directed once daily. 14 Patch 08/25/2021 11:55 AM EDT 08/23/2021 Active Comment on above: Apply 1 Patch as dir ected once daily. omeprazole 40 mg delayed release oral capsule (1 source) Proton Pump Inhibitor omeprazole (PRILOSEC) 40 MG delayed release capsule 1 cap(s) 0 Active raNITIdine 150 mg oral tablet (2 sources) Histamine-2 Receptor Antagonist Start: 2017 take 1 tablet by mouth twice daily ranitidine (ZANTAC) 150 MG tablet Indications: GERD without esophagitis , Essential hypertension , Acute maxillary sinusitis, recurrence not specified , Other depression , Acute pain of left shoulder Take 1 tablet by mouth 2 times daily 180 tablet 0 05/19/2017 Active risperiDONE 1 mg oral tablet (4 sources) Atypical Antipsychotic Start: 2021 End: 2021 take 1 tablet by mouth once daily risperiDONE (RISPERDAL) 1 mg tablet Take 1 tablet by mouth once daily. 30 tablet 08/25/2021 11:55 AM EDT 08/23/2021 Active Start: 08-22-2021 End: 09-24-2021 take 1 tablet by mouth once daily at bedtime risperiDONE (RISPERDAL) 2 mg tablet Take 1 tablet by mouth daily at bedtime. 30 tablet 08/25/2021 11:55 AM EDT 08/22/2021 Active Comment on above: Take 1 tablet by randee th once daily. Take 1 tablet by randee th daily at bedtime. sertraline 100 mg oral tablet (6 sources) Serotonin Reuptake Inhibitor Start: 08-23-2021 End: 09-24-2021 take 1 tablet by mouth once daily sertraline (ZOLOFT) 100 mg tablet Take 1 tablet by mouth once daily. 30 tablet 08/25/2021 11:55 AM EDT 08/23/2021 Active Start: 03-03-2021 take 1 tablet by randee th once daily sertraline (ZOLOFT) 25 mg tablet Indications: Depression, unspecified depression type , Intermittent explosive disorder , Anxiety Take 1 tablet by mouth once daily. Add to 50 mg tablet. 90 tablet 1 03/03/2021 Suspended Start: 03-03-2021 take 1 tablet by randee th once daily sertraline (ZOLOFT) 50 mg tablet Indications: Depression, unspecified depression type , Intermittent explosive disorder , Anxiety Take 1 tablet by mouth once daily. 90 tablet 1 03/03/2021 Suspended Comment on above: Take 1 tablet by randee th once daily. Add to 50 mg tablet. Take 1 tablet by randee th once daily. simvastatin 40 mg oral tablet (2 sources) HMG-CoA Reductase Inhibitor Start: take 1 tablet by mouth once daily in the evening simvastatin (ZOCOR) 40 MG tablet TAKE ONE TABLET BY MOUTH EVERY EVENING 90 tablet 0 10/04/2017 Active traZODone hydrochloride 100 mg oral tablet (4 sources) Serotonin Reuptake Inhibitor Start: 2 End: 2 take 1 tablet by mouth once daily at bedtime traZODone (DESYREL) 100 mg tablet Take 1 tablet by mouth daily at bedtime. 30 tablet 0 08/22/2021 09/24/2021 Active Start: 12-31-2017 End: 01-21-2021 take 1 tablet by mouth once daily in the evening traZODone (DESYREL) 50 MG tablet Indications: Essential hypertension , GERD without esophagitis TAKE ONE TABLET BY MOUTH EVERY EVENING 30 tablet 3 12/31/2017 Active Comment on above: Take 1 tablet by randee th daily at bedtime. Completed/Discontinued Medications Medication Drug Class(es) Dates Sig (Normalized) Sig (Original) lisinopril 10 mg oral tablet (4 sources) Angiotensin Converting Enzyme Inhibitor Start: 03-03-2021 take 1 tablet by mouth once daily lisinopril (ZESTRIL, PRINIVIL) 10 mg tablet Indications: Primary hypertension Take 1 tablet by mouth once daily. 90 tablet 1 03/03/2021 Suspended Start: 09-08-2017 take 1 tablet by randee th once daily lisinopril (PRINIVIL;ZESTRIL) 20 MG tablet Indications: Essential hypertension , GERD without esophagitis TAKE ONE TABLET BY MOUTH ONCE DAILY 90 tablet 1 09/08/2017 Active Comment on above: Take 1 tablet by randee th once daily. meloxicam 7.5 mg oral tablet (3 sources) Nonsteroidal Anti-inflammatory Drug Start: 01-18-20 meloxicam (MOBIC) 7.5 mg tablet 1 tablet by mouth PRN 0 01/17/2021 Suspended Comment on above: 1 tablet by mouth [place] PARoxetine hydrochloride 40 mg oral tablet (2 sources) Serotonin Reuptake Inhibitor Start: 02-17-20 End: 01-22-20 take 1 tablet by mouth once daily in the morning PARoxetine (PAXIL) 40 MG tablet Indications: Essential hypertension , GERD without esophagitis Take 1 tablet by mouth every morning 90 tablet 0 02/16/2018 01/21/2021 Discontinued (Side effects) Problems Active Problems Problem Classification Problem Date Documented Da te Episodic/Chronic Anxiety disorders (7 sources) Anxiety disorder, unspecified; Translations: [Anxiety] Onset: 03-01-2012 01-25-2021 Chronic Aortic; peripheral; and visceral artery aneurysms (5 sources) Aneurysm of ascending aorta; Translations: [Thoracic aortic aneurysm, without rupture] Onset: 08-30-2020 01-25-2021 Chronic Disorders of lipid metabolism (13 sources) Hyperlipidemia, unspecified; Translations: [Other hyperlipidemia] Onset: 10-24-2014 10-24-2014 Chronic Esophageal disorders (7 sources) Gastro-esophageal reflux disease without esophagitis; Translations: [Gastroesophageal reflux disease] Onset: 05-19-2017 01-25-2021 Chronic Essential hypertension (11 sources) Essential (primary) hypertension; Translations: [Hypertensive disorder] Onset: 10-24-2014 10-24-2014 Chronic Impulse control disorders, NEC (5 sources) Intermittent explosive disorder; Translations: [Intermittent explosive disorder] Onset: 03-03-2021 03-03-2021 Chronic Mood disorders (15 sources) Depressive disorder; Translations: [Depression] Onset: 10-24-2014 10-24-2014 Chronic Mood disorders (2 sources) Major depressive disorder, single episode, unspecified; Translations: [Major depressive disorder, single episode, unspecified] Onset: 11-25-2016 Other nervous system disorders (4 sources) Tremor, unspecified; Translations: [Other lack of coordination] Onset: 05-19-2017 Episodic Substance-related disorders (2 sources) Nicotine dependence, chewing tobacco, uncomplicated; Translations: [Nicotine dependence, chewing tobacco, uncomplicated] Onset: 11-25-2016 Chronic Superficial injury; contusion (2 sources) Abrasion of face; Translations: [Abrasion of other part of head, initial encounter] Episodic Unclassified (2 sources) Other specified depressive episodes; Translations: [Other specified depressive episodes] Onset: 05-19-2017 Past or Other Problems Problem Classification Problem Date Documented Da te Episodic/Chronic Allergic reactions (2 sources) Allergy status to penicillin; Translations: [Allergy status to penicillin] Onset: 11-25-2016 Episodic Headache, including migraine (7 sources) Headache; Translations: [Bilateral headache] Onset: 05-19-2017 01-25-2021 Episodic Nonspecific chest pain (5 sources) Other chest pain; Translations: [Chest pain, unspecified] Onset: 11-18-2016 Resolved: 08-30-2020 08-30-2020 Episodic Other connective tissue disease (4 sources) Pain in right forearm; Translations: [Other specified soft tissue disorders] Onset: 11-21-2016 Episodic Other nervous system disorders (5 sources) Tremor; Translations: [Tremor, unspecified] Onset: 01-24-2021 01-25-2021 Episodic Spondylosis; intervertebral disc disorders; other back problems (12 sources) Backache; Translations: [Dorsalgia, unspecified] Onset: 10-24-2014 10-24-2014 Episodic Unclassified (4 sources) Encounter for screening for malignant neoplasm of prostate; Translations: [Encounter for screening for malignant neoplasm of colon] Onset: 05-19-2017 Episodic Results Test Name Value Interpretation Reference Range Facility CBC panel Auto (Bld)on 06-28 Erythrocyte distribution width (RBC) [Ratio] 11.8 % Normal 11.5-15.0 [facility] Comment on above: Order Comment: Speci men Type: BLOOD SPECIMEN Ordering Facility: [facility] Address: [address] [place] [address] Performed By: #### 5 8410-2 #### [facility] CLIA [id number] [address] [place] Hematocrit (Bld) [Volume fraction] 42.3 % Normal 39.0-51.0 [facility] Comment on above: Order Comment: Speci men Type: BLOOD SPECIMEN Ordering Facility: [facility] Address: [address] [place] [address] Performed By: #### 5 8410-2 #### [facility] CLIA [id number] [address] [place] [address] [place] Hemoglobin (Bld) [Mass/Vol] 14.6 g/dL Normal 13.0-17.0 [facility] Comment on above: Order Comment: Speci men Type: BLOOD SPECIMEN Ordering Facility: [facility] Address: [address] [place] [address] Performed By: #### 5 8410-2 #### [facility] CLIA [id number] [address] [place] [address] [place] MCH (RBC) [Entitic mass] 30.8 pg Normal 26.0-34.0 [facility] Comment on above: Order Comment: Speci men Type: BLOOD SPECIMEN Ordering Facility: [facility] Address: [address] [place] [address] Performed By: #### 5 8410-2 #### [facility] CLIA [id number] [address] [place] [address] [place] MCHC (RBC) [Mass/Vol] 34.5 g/dL Normal 30.5-36.0 [facility] Comment on above: Order Comment: Speci men Type: BLOOD SPECIMEN Ordering Facility: [facility] Address: [address] [place] [address] Performed By: #### 5 8410-2 #### [facility] CLIA [id number] [address] [place] [address] [place] MCV (RBC) [Entitic vol] 89.2 fL Normal 80.0-100.0 [facility] Comment on above: Order Comment: Speci men Type: BLOOD SPECIMEN Ordering Facility: [facility] Address: [address] [place] [address] Performed By: #### 5 8410-2 #### [facility] CLIA [id number] [address] [place] [address] [place] Nucleated RBC (Bld) [#/Vol] 10*3/uL Normal <0.01 [facility] Comment on above: Order Comment: Speci men Type: BLOOD SPECIMEN Ordering Facility: [facility] Address: [address] [place] [address] Performed By: #### 5 8410-2 #### [facility] CLIA [id number] [address] [place] [address] [place] Platelet mean volume (Bld) [Entitic vol] 11.3 fL Normal 9.0-12.7 [facility] Comment on above: Order Comment: Speci men Type: BLOOD SPECIMEN Ordering Facility: [facility] Address: [address] [place] [address] Performed By: #### 5 8410-2 #### [facility] CLIA [id number] [address] [place] [address] [place] Platelets (Bld) [#/Vol] 200 10*3/uL Normal 150-400 [facility] Comment on above: Order Comment: Speci men Type: BLOOD SPECIMEN Ordering Facility: [facility] Address: [address] [place] [address] Performed By: #### 5 8410-2 #### [facility] CLIA [id number] [address] [place] [address] [place] RBC (Bld) [#/Vol] 4.74 10*6/uL Normal 4.20-6.00 [facility] Comment on above: Order Comment: Speci men Type: BLOOD SPECIMEN Ordering Facility: [facility] Address: [address] [place] [address] Performed By: #### 5 8410-2 #### [facility] CLIA [id number] [address] [place] [address] [place] WBC (Bld) [#/Vol] 6.58 10*3/uL Normal 3.70-11.00 [facility] Comment on above: Order Comment: Speci men Type: BLOOD SPECIMEN Ordering Facility: [facility] Address: [address] [place] [address] Performed By: #### 5 8410-2 #### [facility] CLIA [id number] [address] [place] [address] [place] Comprehensive metabolic 2000 panelon 06-28-2024 Albumin [Mass/Vol] 4.3 g/dL Normal 3.9-4.9 [facility] Comment on above: Order Comment: Speci men Type: BLOOD SPECIMEN Ordering Facility: [facility] Address: [address] [place] [address] Performed By: #### 3 016-3, 61517-4, 65603-0 #### [facility] CLIA [id number] [address] [place] ALP [Catalytic activity/Vol] 77 U/L Normal 38-113 [facility] Comment on above: Order Comment: Speci men Type: BLOOD SPECIMEN Ordering Facility: [facility] Address: [address] [place] [address] Performed By: #### 3 016-3, 93876-8, 87625-4 #### [facility] CLIA [id number] [address] [place] [address] [place] ALT [Catalytic activity/Vol] 15 U/L Normal 10-54 [facility] Comment on above: Order Comment: Speci men Type: BLOOD SPECIMEN Ordering Facility: [facility] Address: [address] [place] [address] Performed By: #### 3 016-3, 48152-8, 85305-5 #### [facility] CLIA [id number] [address] [place] [address] [place] Anion gap [Moles/Vol] 14 mmol/L Normal 8-15 [facility] Comment on above: Order Comment: Speci men Type: BLOOD SPECIMEN Ordering Facility: [facility] Address: [address] [place] [address] Performed By: #### 3 016-3, 82467-0, 94246-9 #### [facility] CLIA [id number] [address] [place] [address] [place] AST [Catalytic activity/Vol] 18 U/L Normal 14-40 [facility] Comment on above: Order Comment: Speci men Type: BLOOD SPECIMEN Ordering Facility: [facility] Address: [address] [place] [address] Performed By: #### 3 016-3, 32366-4, #### [facility] CLIA [id number] [address] [place] [address] [place] Bilirubin [Mass/Vol] 0.2 mg/dL Normal 0.2-1.3 [facility] Comment on above: Order Comment: Speci men Type: BLOOD SPECIMEN Ordering Facility: [facility] Address: [address] [place] [address] Performed By: #### 3 016-3, 45712-8, 30277-7 #### [facility] CLIA [id number] [address] [place] [address] [place] Calcium [Mass/Vol] 9.8 mg/dL Normal 8.5-10.2 [facility] Comment on above: Order Comment: Speci men Type: BLOOD SPECIMEN Ordering Facility: [facility] Address: [address] [place] [address] Performed By: #### 3 016-3, 05505-9, 03372-5 #### [facility] CLIA [id number] [address] [place] [address] [place] Chloride [Moles/Vol] 105 mmol/L Normal 98-107 [facility] Comment on above: Order Comment: Speci men Type: BLOOD SPECIMEN Ordering Facility: [facility] Address: [address] [place] [address] Performed By: #### 3 016-3, 80184-2, 11188-2 #### [facility] CLIA [id number] [address] [place] [address] [place] CO2 [Moles/Vol] 22 mmol/L Normal 22-30 [facility] Comment on above: Order Comment: Speci men Type: BLOOD SPECIMEN Ordering Facility: [facility] Address: [address] [place] [address] Performed By: #### 3 016-3, 92529-6, 97733-1 #### [facility] CLIA [id number] [address] [place] [address] [place] Creatinine [Mass/Vol] 0.85 mg/dL Normal 0.73-1.22 [facility] Comment on above: Order Comment: Speci men Type: BLOOD SPECIMEN Ordering Facility: [facility] Address: [address] [place] [address] Performed By: #### 3 016-3, 04864-5, 52145-9 #### [facility] CLIA [id number] [address] [place] [address] [place] Creatinine and Glomerular filtration rate.predicted panel (S/P/Bld) 101 mL/min/1.73m??? Normal >=60 [facility] Comment on above: Order Comment: Speci men Type: BLOOD SPECIMEN Ordering Facility: [facility] Address: [address] [place] [address] Result Comment: Sharlene mated Glomerular Filtration Rate (eGFR) is calculated using the 2020 CKD-EPI creatinine equation. This equation utilizes serum creatinine, sex, and age as parameters. The creatinine assay has traceable calibration to isotope dilution-mass spectrometry. Refer to KDIGO guidelines for clinical interpretation. In patients with unstable renal function, e.g. those with acute kidney injury, the eGFR may not accurately reflect actual GFR. Performed By: #### 3 016-3, 04856-0, 54482-5 #### [facility] CLIA [id number] [address] [place] [address] [place] Glucose [Mass/Vol] 99 mg/dL Normal 74-99 [facility] Comment on above: Order Comment: [place] Type: BLOOD SPECIMEN Ordering Facility: [facility] Address: [address] [place] [address] Result Comment: The [place] Diabetes Association (ADA) provides guidance for cutoff values for fasting glucose and random glucose. The ADA defines fasting as no caloric intake for at least 8 hours. Fasting plasma glucose results between 100 to 125 mg/dL indicate increased risk for diabetes (prediabetes). Fasting plasma glucose results greater than or equal to 126 mg/dL meet the criteria for diagnosis of diabetes. In the absence of unequivocal hyperglycemia, results should be confirmed by repeat testing. In a patient with classic symptoms of hyperglycemia or hyperglycemic crisis, random plasma glucose results greater than or equal to 200 mg/dL meet the criteria for diagnosis of diabetes. Reference: Standards of Medical Care in Diabetes 2016, [place] Diabetes Association. Diabetes Care. 2016.39(Suppl 1). Performed By: #### 3 016-3, 49421-8, 07943-9 #### [facility] CLIA [id number] [address] [place] [address] [place] Potassium [Moles/Vol] 4.1 mmol/L Normal 3.7-5.1 [facility] Comment on above: Order Comment: [place] Type: BLOOD SPECIMEN Ordering Facility: [facility] Address: [address] [place] [address] Performed By: #### 3 016-3, 80380-9, 02733-6 #### [facility] CLIA [id number] [address] [place] [address] [place] Protein [Mass/Vol] 7.4 g/dL Normal 6.3-8.0 [facility] Comment on above: Order Comment: Speci men Type: BLOOD SPECIMEN Ordering Facility: [facility] Address: [address] [place] [address] Performed By: #### 3 016-3, 87936-4, 62044-9 #### [facility] CLIA [id number] [address] [place] [address] [place] Sodium [Moles/Vol] 141 mmol/L Normal 136-144 [facility] Comment on above: Order Comment: Speci men Type: BLOOD SPECIMEN Ordering Facility: [facility] Address: [address] [place] [address] Performed By: #### 3 016-3, 29825-6, 17686-3 #### [facility] CLIA [id number] [address] [place] [address] [place] Urea nitrogen [Mass/Vol] 15 mg/dL Normal 9-24 [facility] Comment on above: Order Comment: Speci men Type: BLOOD SPECIMEN Ordering Facility: [facility] Address: [address] [place] [address] Performed By: #### 3 016-3, 00060-0, 72724-2 #### [facility] CLIA [id number] [address] [place] [address] [place] ECG COMPLETEon 06-28-2024 Atrial Rate 42 BPM [facility] Calculated P [place] 34 degrees [facility] Calculated R [place] 0 degrees [facility] Calculated T [place] 23 degrees [facility] P-R Interval 202 ms [facility] QRS Duration 120 ms Sahu [facility] QT Interval 474 ms [facility] QTC Calculation (Bazett) 395 ms [facility] Ventricular Rate 42 BPM [facility] FIRST DEGREE AV BLOC K MARKED SINUS BRADYCARDIA LEFT VENTRICULAR HYPERTROPHY WITH QRS WIDENING ( R in aVL , [place] product ) INFERIOR INFARCT AGE INDETERMINATE Confirmed by ALEJA HOOKER MD ([id number]) on 06/28/2024 2:22:57 PM [facility] NAME : BENJAMIN GUTIERREZ PID : [id number] : 1965 Gender : Male Race : ORD : [id number] Procedure Date : Jun 28 2024 07:49:02 Edit Date : Jun 28 2024 14:23:00 Diagnosis: FIRST DEGREE AV BLOCK MARKED SINUS BRADYCARDIA LEFT VENTRICULAR HYPERTROPHY WITH QRS WIDENING ( R in aVL , [place] product ) INFERIOR INFARCT AGE INDETERMINATE Confirmed by ALEJA HOOKER MD ([id number]) on 06/28/2024 2:22:57 PM Test Reason : Hypertension Location : 0 : CARD Overread By : ALEJA HOOKER MD Edited By : ALEJA HOOKER MD Referred By : CJ PERAZA Acquired by : AMILCAR BEAUCHAMP [facility] ECG COMPLETE Ventricular Rate : 4 2 BPM Atrial Rate : 42 BPM P-R Interval : 202 ms QRS Duration : 120 ms Q-T Interval : 474 ms QTC Calculation(Bazett) : 395 ms Calculated P [place] : 34 degrees Calculated R [place] : 0 degrees Calculated T [place] : 23 degrees FIRST DEGREE AV BLOCK MARKED SINUS BRADYCARDIA LEFT VENTRICULAR HYPERTROPHY WITH QRS WIDENING ( R in aVL , [place] product ) INFERIOR INFARCT AGE INDETERMINATE Confirmed by ALEJA HOOKER MD ([id number]) on 06/28/2024 2:22:57 PM NAME : BENJAMIN GUTIERREZ PID : [id number] : 1965 Gender : Male Race : ORD : [id number] Procedure Date : Jun 28 2024 07:49:02 Edit Date : Jun 28 2024 14:23:00 Diagnosis: FIRST DEGREE AV BLOCK MARKED SINUS BRADYCARDIA LEFT VENTRICULAR HYPERTROPHY WITH QRS WIDENING ( R in aVL , [place] product ) INFERIOR INFARCT AGE INDETERMINATE Confirmed by ALEJA HOOKER MD ([id number]) on 06/28/2024 2:22:57 PM Test Reason : Hypertension Location : 0 : CARD Overread By : ALEJA HOOKER MD Edited By : ALEJA HOOKER MD Referred By : CJ PERAZA Acquired by : MAILCAR BEAUCHAMP [facility] Lipid 1996 panelon 5 Cholesterol [Mass/Vol] 246 mg/dL High <200 [facility] Comment on above: Order Comment: Speci men Type: BLOOD SPECIMEN Ordering Facility: [facility] Address: [address] [place] [address] Result Comment: <200 mg/dL, Desirable 200-239 mg/dL, Borderline high >239 mg/dL, High Performed By: #### 3 016-3, 29672-1, 70683-2 #### [facility] CLIA [id number] [address] Cholesterol in HDL [Mass/Vol] 34 mg/dL Low >39 [facility] Comment on above: Order Comment: [place] Type: BLOOD SPECIMEN Ordering Facility: [facility] Address: [address] [place] [address] Result Comment: 40-5 9 mg/dL, Acceptable >59 mg/dL, High: Negative risk factor for coronary heart disease <40 mg/dL, Low: Positive risk factor for coronary heart disease Performed By: #### 3 016-3, 02848-6, 11484-5 #### [facility] CLIA [id number] [address] Cholesterol in LDL [Mass/Vol] 101 mg/dL High <100 [facility] Comment on above: Order Comment: [facility] Type: BLOOD SPECIMEN Ordering Facility: [facility] Address: [address] [place] [address] Result Comment: <100 mg/dL, Optimal 100-129 mg/dL, Near optimal/above optimal 130-159 mg/dL, Borderline high 160-189 mg/dL, High >189 mg/dL, Very high Secondary prevention optimal LDL Cholesterol levels are recommended to be <70 mg/dL LDL cholesterol is calculated using the Rayo-NIH equation. Performed By: #### 3 016-3, 53851-9, 44527-8 #### [facility] CLIA [id number] [address] [facility] Cholesterol in LDL/Cholesterol in HDL [Mass ratio] 2.97 {ratio} High <2.54 [facility] Comment on above: Order Comment: [facility] Type: BLOOD SPECIMEN Ordering Facility: [facility] Address: [address] [place] [address] Result Comment: Refe rence: 1. National Cholesterol Education Program ATP III Guideline At-A-Glance Quick Desk Reference: National Heart, Lung, and Blood Harmony. National Institutes of Health. 2001: NIH Publication No. 01-3305. 2. An International Atherosclerosis Society position paper: global recommendations for the management of dyslipidemia: executive summary, Atherosclerosis. 2014: 232(2):410-413. Performed By: #### 3 016-3, 97226-5, 97237-7 #### [facility] CLIA [id number] [address] [place] [address] [place] Cholesterol in VLDL [Mass/Vol] 111 mg/dL High <30 [facility] Comment on above: Order Comment: Speci men Type: BLOOD SPECIMEN Ordering Facility: [facility] Address: [address] [place] [address] Performed By: #### 3 016-3, 81916-6, 51570-9 #### [facility] CLIA [id number] [address] [place] [address] [place] Cholesterol non HDL [Mass/Vol] 212 mg/dL High <130 [facility] Comment on above: Order Comment: Gorge[place] men Type: BLOOD SPECIMEN Ordering Facility: [facility] Address: [address] [place] [address] Result Comment: <130 mg/dL, Optimal 130-159 mg/dL, Near optimal/above optimal 160-189 mg/dL, Borderline high 190-219 mg/dL, High >219 mg/dL, Very high Secondary prevention optimal non HDL Cholesterol levels are recommended to be <100 mg/dL Performed By: #### 3 016-3, 27631-1, 32173-0 #### [facility] CLIA [id number] [address] [place] [address] [place] Cholesterol.total /Cholesterol in HDL [Mass ratio] 7.24 {ratio} High <5.10 [facility] Comment on above: Order Comment: Gorgei men Type: BLOOD SPECIMEN Ordering Facility: [facility] Address: [address] [place] [address] Performed By: #### 3 016-3, 24648-9, 74679-4 #### [facility] CLIA [id number] [address] [place] [address] [place] FASTING TIME 12 hrs Normal [facility] Comment on above: Order Comment: [place]orge[place] men Type: BLOOD SPECIMEN Ordering Facility: [facility] Address: [address] [place] [address] Performed By: #### 3 016-3, 54091-7, 66682-1 #### [facility] CLIA [id number] [address] [place] [address] [place] Triglyceride [Mass/Vol] 648 mg/dL High <150 [facility] Comment on above: Order Comment: Speci men Type: BLOOD SPECIMEN Ordering Facility: [facility] Address: [address] [place] [address] Result Comment: <150 mg/dL, Normal 150-199 mg/dL, Borderline high 200-499 mg/dL, High >499 mg/dL, Very high Performed By: #### 3 016-3, 95055-6, 92369-8 #### [facility] CLIA [id number] [address] [place] [address] [place] TSH SerPl-aCncon 06-28-2024 TSH Qn 1.390 m[IU]/L Normal 0.270-4.200 [facility] Comment on above: Order Comment: Speci men Type: BLOOD SPECIMEN Ordering Facility: [facility] Address: [address] [place] [address] Performed By: #### 3 016-3, 73836-7, 74364-2 #### [facility] CLIA [id number] [address] [place] [address] [place] Urinalysis complete panel (U )on 06-28-2024 Bilirubin Ql (U) Negative Normal Negative [facility] Comment on above: Order Comment: Speci men Type: URINE SPECIMEN Ordering Facility: [facility] Address: [address] [place] [address] Performed By: #### 2 4356-8 #### [facility] CLIA [id number] [address] [place] [address] [place] Clarity (Unsp spec) Clear Normal Clear [facility] Comment on above: Order Comment: Speci men Type: URINE SPECIMEN Ordering Facility: [facility] Address: [address] [place] [address] Performed By: #### 2 4356-8 #### [facility] CLIA [id number] [address] [place] [address] [place] Color (U) Yellow Normal Yellow [facility] Comment on above: Order Comment: Speci men Type: URINE SPECIMEN Ordering Facility: [facility] Address: [address] [place] [address] Performed By: #### 2 4356-8 #### [facility] CLIA [id number] [address] [place] [address] [place] Glucose Test strip (U) [Mass/Vol] Negative Normal Negative [facility] Comment on above: Order Comment: Speci men Type: URINE SPECIMEN Ordering Facility: [facility] Address: [facility] [place] [address] Performed By: #### 2 4356-8 #### [facility] CLIA [id number] [address] [place] [address] [place] Hemoglobin Ql (U) Negative Normal Negative [facility] Comment on above: Order Comment: Speci men Type: URINE SPECIMEN Ordering Facility: [facility] Address: [facility] [place] [address] Performed By: #### 2 4356-8 #### [facility] CLIA [id number] [address] [place] [address] [place] Ketones Ql (U) Negative Normal Negative [facility] Comment on above: Order Comment: Speci men Type: URINE SPECIMEN Ordering Facility: [facility] Address: [address] [place] [address] Performed By: #### 2 4356-8 #### [facility] CLIA [id number] [address] [place] [address] [place] Leukocyte esterase Test strip Ql (U) Negative Normal Negative [facility] Comment on above: Order Comment: Speci men Type: URINE SPECIMEN Ordering Facility: [facility] Address: [facility] [place] [address] Performed By: #### 2 4356-8 #### [facility] CLIA [id number] [address] [place] [address] [place] Nitrite Ql (U) Negative Normal Negative [facility] Comment on above: Order Comment: Speci men Type: URINE SPECIMEN Ordering Facility: [facility] Address: [address] [place] [address] Performed By: #### 2 4356-8 #### [facility] CLIA [id number] [address] [place] [address] [place] pH (U) 6.0 [pH] Normal 5.0-8.0 [facility] Comment on above: Order Comment: Speci men Type: URINE SPECIMEN Ordering Facility: [facility] Address: [address] [place] [address] Performed By: #### 2 4356-8 #### [facility] CLIA [id number] [address] [place] [address] [place] Protein (U) [Mass/Vol] Negative Normal Negative [facility] Comment on above: Order Comment: Speci men Type: URINE SPECIMEN Ordering Facility: [facility] Address: [address] [place] [address] Performed By: #### 2 4356-8 #### [facility] CLIA [id number] [address] [place] [address] [place] RBC LM.HPF (Urine sed) [#/Area] 0-3 /HPF Normal 0-3 /HPF [facility] Comment on above: Order Comment: Speci men Type: URINE SPECIMEN Ordering Facility: [facility] Address: [address] [place] [address] Performed By: #### 2 4356-8 #### [facility] CLIA [id number] [address] [place] [address] [place] Specific gravity (U) [Rel density] 1.025 Normal 1.005-1.030 [facility] Comment on above: Order Comment: Speci men Type: URINE SPECIMEN Ordering Facility: [facility] Address: [address] [place] [address] Performed By: #### 2 4356-8 #### [facility] CLIA [id number] [address] [place] [address] [place] Urobilinogen Ql (U) 0.2 EU/dL Normal 0.2-1.0 EU/dL [facility] Comment on above: Order Comment: Speci men Type: URINE SPECIMEN Ordering Facility: [facility] Address: [address] [place] [address] Performed By: #### 2 4356-8 #### [facility] CLIA [id number] [address] [place] [address] [place] WBC LM.HPF (Urine sed) [#/Area] 0-5 /HPF Normal 0-5 /HPF [facility] Comment on above: Order Comment: Speci men Type: URINE SPECIMEN Ordering Facility: [facility] Address: [address] [place] [address] Performed By: #### 2 4356-8 #### [facility] CLIA [id number] [address] [place] [address] [place] XR CHEST 2V FRONTAL/LATon XR CHEST 2V FRONTAL/LAT * * *Final Report* * * DATE OF EXAM: Jun 28 2024 8:10AM MDX 5291 - XR CHEST 2V FRONTAL/LAT / PROCEDURE REASON: essential hypertension * * * * Physician Interpretation * * * * EXAMINATION: CHEST RADIOGRAPH (2 VIEW FRONTAL and LATERAL) CLINICAL HISTORY: Essential hypertension. MQ: XC2_6 EXAM DATE/TIME: 06/28/2024 8:10 AM COMPARISON: Chest x-ray on 01/14/2021 RESULT: Lines, tubes, and devices: None. Lungs and pleura: No consolidation. No lung mass. No pleural effusion. No pneumothorax. Cardiomediastinal silhouette: Stable cardiac silhouette. There is tortuosity of the thoracic aorta. Bones and soft tissues: The spine shows degenerative changes. IMPRESSION: Stable exam without acute findings. Basket Bottom Machine Operator: DOT Transcribe Date/Time: Jun 28 2024 8:17A Dictated by : PARI OCONNOR MD This examination was interpreted and the report reviewed and electronically signed by: PARI OCONNOR MD on Jun 28 2024 8:19AM EST [id number] Normal [facility] XR Chest PA and Lateralon IMPRESSION: Stable exam without acute findings. Basket Bottom Machine Operator: PSCB Transcribe Date/Time: Jun 28 2024 8:17A Dictated by : PARI OCONNOR MD This examination was interpreted and the report reviewed and electronically signed by: PARI OCONNOR MD on Jun 28 2024 8:19AM EST [facility] * * *Final Report* * * DATE OF EXAM: Jun 28 2024 8:10AM MDX 5291 - XR CHEST 2V FRONTAL/LAT / PROCEDURE REASON: essential hypertension * * * * Physician Interpretation * * * * EXAMINATION: CHEST RADIOGRAPH (2 VIEW FRONTAL & LATERAL) CLINICAL HISTORY: Essential hypertension. MQ: XC2_6 EXAM DATE/TIME: 06/28/2024 8:10 AM COMPARISON: Chest x-ray on 01/14/2021 RESULT: Lines, tubes, and devices: None. Lungs and pleura: No consolidation. No lung mass. No pleural effusion. No pneumothorax. Cardiomediastinal silhouette: Stable cardiac silhouette. There is tortuosity of the thoracic aorta. Bones and soft tissues: The spine shows degenerative changes. [facility] Provider, [facility] - 06/28/2024 * * *Final Report* * * DATE OF EXAM: Jun 28 2024 8:10AM MDX 5291 - XR CHEST 2V FRONTAL/LAT / PROCEDURE REASON: essential hypertension * * * * Physician Interpretation * * * * EXAMINATION: CHEST RADIOGRAPH (2 VIEW FRONTAL & LATERAL) CLINICAL HISTORY: Essential hypertension. MQ: XC2_6 EXAM DATE/TIME: 06/28/2024 8:10 AM COMPARISON: Chest x-ray on 01/14/2021 RESULT: Lines, tubes, and devices: None. Lungs and pleura: No consolidation. No lung mass. No pleural effusion. No pneumothorax. Cardiomediastinal silhouette: Stable cardiac silhouette. There is tortuosity of the thoracic aorta. Bones and soft tissues: The spine shows degenerative changes. IMPRESSION IMPRESSION: Stable exam without acute findings. Basket Bottom Machine Operator: PSCB Transcribe Date/Time: Jun 28 2024 8:17A Dictated by : PARI OCONNOR MD This examination was interpreted and the report reviewed and electronically signed by: PARI OCONNOR MD on Jun 28 2024 8:19AM EST [facility] Radiology Study observation (narrative) [facility] XR Chest PA and LateralOrder ed By: [facility] Provider on 06-28-2024 [facility] 12 Lead EKGon 11-04-2023 12 Lead EKG [facility] [address] [place] [address] 12 Lead EKG 11/04/23 1735 MR#: [id number] Acct: [id number] Name: BENJAMIN GUTIERREZ Jr. Rep #: [id number] : 1965 58 From: Jose Armando Caldera MD Attending Dr: Status: DEP ER Ordering Dr: Rock Hurst DO Date: 11/04/23 Location: ED Sex: M C Admitted: Test Reason : CHEST PAIN Blood Pressure : / mmHG Vent. Rate : 100 BPM Atrial Rate : 100 BPM P-R Int : 192 ms QRS Dur : 108 ms QT Int : 364 ms P-R-T Axes : 012 017 -07 degrees QTc Int : 469 ms Normal sinus rhythm Inferior infarct , age undetermined Cannot rule out Anterior infarct , age undetermined Abnormal ECG Confirmed by REAGAN MARTINEZ, JOSE ARMANDO ([id number]), offline editor SAE ORTEGA ([id number]) on 11/08/2023 8:12:53 AM Referred By: Confirmed By:JOSE ARMANDO CALDERA MD 11/08/23 0812 Date Jose Armando Caldera MD CC: Dr. Rock Hurst DO; [facility] Signed Normal [facility] Basic Metabolic Profile (BMP )on 11-04-2023 BUN/CRE 11.9 RATIO Normal 10-20 [facility] Comment on above: Order Comment: 1 Y Performed By: #### L 300.8000, L100.0100, L501.5425, L500.2500 #### [facility] [address] [place], [address] CA,Total 9.3 mg/dL Normal 8.5-10.1 [facility] Comment on above: Order Comment: 1 Y Result Comment: Slig ht Lipemia, Result may be falsely increased. Performed By: #### L 300.8000, L100.0100, L501.5425, L500.2500 #### [facility] [address] [place], [address] Chloride [Moles/Vol] 102 mmol/L Normal 98-107 [facility] Comment on above: Order Comment: 1 Y Performed By: #### L 300.8000, L100.0100, L501.5425, L500.2500 #### [facility] [address] [place], [address] CO2 [Moles/Vol] 24.0 mmol/L Normal 21.0-32.0 [facility] Comment on above: Order Comment: 1 Y Result Comment: Slig ht Lipemia, Result may be falsely increased. Performed By: #### L 300.8000, L100.0100, L501.5425, L500.2500 #### [facility] [address] [place], [address] Creatinine [Mass/Vol] 1.09 mg/dL Normal 0.70-1.30 [facility] Comment on above: Order Comment: 1 Y Result Comment: Slig ht Lipemia, Result may be falsely increased. The validity of the calculated GFR GFRAA in patients over 70 years has not been determined. Clinical correlation is essential. Performed By: #### L 300.8000, L100.0100, L501.5425, L500.2500 #### [facility] [address] [place], [address] EST GFR - AA 90 mL/min Normal >60 [facility] Comment on above: Order Comment: 1 Y Result Comment: Afri can [place] GFR Calc Performed By: #### L 300.8000, L100.0100, L501.5425, L500.2500 #### [facility] [address] [place], [address] GAP 9 Normal 5-15 [facility] Comment on above: Order Comment: 1 Y Performed By: #### L 300.8000, L100.0100, L501.5425, L500.2500 #### [facility] [address] [place], [address] GFR/1.73 sq M.predicted among non-blacks MDRD (S/P/Bld) [Vol rate/Area] 74 mL/min/{1.73_m2} Normal >60 [facility] Comment on above: Order Comment: 1 Y Result Comment: Non- GFR Calc Performed By: #### L 300.8000, L100.0100, L501.5425, L500.2500 #### [facility] [address] [place], [address] Glucose [Mass/Vol] 157 mg/dL High 74-106 [facility] Comment on above: Order Comment: 1 Y Result Comment: Slig ht Lipemia, Result may be falsely increased. Fasting Glucose result greater than or equal to 126 mg/dL suggests DIABETES MELLITUS per A.D.A. criteria. Performed By: #### L 300.8000, L100.0100, L501.5425, L500.2500 #### [facility] [address] [place], [address] Potassium [Moles/Vol] 3.6 mmol/L Normal 3.5-5.1 [facility] Comment on above: Order Comment: 1 Y Result Comment: Mode rate Hemolysis, Result may be falsely increased.-Slight Lipemia, Result may be falsely increased. Performed By: #### L 300.8000, L100.0100, L501.5425, L500.2500 #### [facility] [address] [place], [address] Sodium [Moles/Vol] 135 mmol/L Low 136-145 [facility] Comment on above: Order Comment: 1 Y Performed By: #### L 300.8000, L100.0100, L501.5425, L500.2500 #### [facility] [address] [place], [address] Urea nitrogen [Mass/Vol] 13 mg/dL Normal 7-18 [facility] Comment on above: Order Comment: 1 Y Result Comment: Slig ht Lipemia, Result may be falsely increased. Performed By: #### L 300.8000, L100.0100, L501.5425, L500.2500 #### [facility] [address] [place], [address] CBC W/Diff, Automatedon 09-0 5-2023 Absolute Lymph 2.65 X10 3/uL Normal 0.83-4.51 [facility] Comment on above: Performed By: #### L 300.8000, L100.0100, L501.5425, L500.2500 #### [facility] [address] [place], [address] Absolute Neut 4.2 X10 3/uL Normal 2.0-7.7 [facility] Comment on above: Performed By: #### L 300.8000, L100.0100, L501.5425, L500.2500 #### [facility] [address] [place], [address] Basophils/100 WBC (Bld) 1.0 % Normal 0-1 [facility] Comment on above: Performed By: #### L 300.8000, L100.0100, L501.5425, L500.2500 #### [facility] [address] [place], [address] Eosinophils/100 WBC (Bld) 2.8 % Normal 0-5 [facility] Comment on above: Performed By: #### L 300.8000, L100.0100, L501.5425, L500.2500 #### [facility] [address] [place], [address] Erythrocyte distribution width (RBC) [Ratio] 11.9 % Normal 11.6-14.6 [facility] Comment on above: Performed By: #### L 300.8000, L100.0100, L501.5425, L500.2500 #### [facility] [address] [place], [address] Hematocrit (Bld) [Volume fraction] 47.2 % Normal 40-54 [facility] Comment on above: Performed By: #### L 300.8000, L100.0100, L501.5425, L500.2500 #### [facility] [address] [place], [address] Hemoglobin (Bld) [Mass/Vol] 16.9 g/dL High 13.0-16.5 [facility] Comment on above: Performed By: #### L 300.8000, L100.0100, L501.5425, L500.2500 #### [facility] [address] [place], [address] IG% 0.400 Normal 0.0-0.9 [facility] Comment on above: Result Comment: IG% - Immature Granulocytes (promyelocytes, myelocytes and metamyelocytes) > 1% indicates that a LEFT SHIFT is Present. Performed By: #### L 300.8000, L100.0100, L501.5425, L500.2500 #### [facility] [address] [place], [address] Lymphocytes/100 WBC (Bld) 33.6 % Normal 19-41 [facility] Comment on above: Performed By: #### L 300.8000, L100.0100, L501.5425, L500.2500 #### [facility] [address] [place], [address] MCH (RBC) [Entitic mass] 30.9 pg Normal 27.0-32.0 [facility] Comment on above: Performed By: #### L 300.8000, L100.0100, L501.5425, L500.2500 #### [facility] [address] [place], [address] MCHC (RBC) [Mass/Vol] 35.8 g/dL Normal 32-36 [facility] Comment on above: Performed By: #### L 300.8000, L100.0100, L501.5425, L500.2500 #### [facility] [address] [place], [address] MCV (RBC) [Entitic vol] 86.3 fL Normal 80-94 [facility] Comment on above: Performed By: #### L 300.8000, L100.0100, L501.5425, L500.2500 #### [facility] [address] [place], [address] Monocytes/100 WBC (Bld) 8.9 % Normal 0-10 [facility] Comment on above: Performed By: #### L 300.8000, L100.0100, L501.5425, L500.2500 #### [facility] [address] [place], [address] Neutrophils/100 WBC (Bld) 53.3 % Normal 47-70 [facility] Comment on above: Performed By: #### L 300.8000, L100.0100, L501.5425, L500.2500 #### [facility] [address] [place], [address] Nucleated RBC (Bld) [#/Vol] 0 10*3/uL Normal 0-5 [facility] Comment on above: Performed By: #### L 300.8000, L100.0100, L501.5425, L500.2500 #### [facility] [address] [place], [address] Platelet mean volume (Bld) [Entitic vol] 10.9 fL Normal 6.2-12.0 [facility] Comment on above: Performed By: #### L 300.8000, L100.0100, L501.5425, L500.2500 #### [facility] [address] [place], [address] Platelets (Bld) [#/Vol] 209 10*3/uL Normal 150-450 [facility] Comment on above: Performed By: #### L 300.8000, L100.0100, L501.5425, L500.2500 #### [facility] [address] [place], [address] RBC (Bld) [#/Vol] 5.47 10*6/uL Normal 4.6-6.2 [facility] Comment on above: Performed By: #### L 300.8000, L100.0100, L501.5425, L500.2500 #### [facility] [address] [place], [address] RDW SD 37.2 fl Normal 35.1-43.9 [facility] Comment on above: Performed By: #### L 300.8000, L100.0100, L501.5425, L500.2500 #### [facility] [address] [place], [address] WBC (Bld) [#/Vol] 7.9 10*3/uL Normal 4.4-11.[address] [facility] Comment on above: Performed By: #### L 300.8000, L100.0100, L501.5425, L500.2500 #### [facility] [address] [place], [address] Chest 1 View (Portable)on Chest 1 View (Portable) [facility] Imaging Services [address] [place] [address] Chest 1 View (Portable) MR#: [id number] Acct: [id number] Name: BENJAMIN GUTIERREZ Rep #: [id number] : 1965 M 58 From: Siddharth flores MD PCP: [facility] Status: [facility] ER Study: Chest 1 View (Portable) Date of Exam: 11/04/23 Exam# [id number] Ordering Dr: Rock Hurst DO [id number] STUDY: X-RAY CHEST REASON FOR EXAM: Male, 58 years old. chest pain TECHNIQUE: Single AP portable view of the chest. COMPARISON: None. FINDINGS: The lungs are clear and expanded. There is no demonstrated pleural abnormality. Normal size heart. Normal mediastinum and liam. Normal visualized pulmonary arteries. Normal visualized aortic arch and descending thoracic aorta. Normal visualized thoracic spine. Normal visualized ribs, clavicles, and shoulders. There is no demonstrated abnormality of the visualized soft tissue structures of the upper abdomen. RAD/Chest 1 View (Portable) IMPRESSION: Normal x-ray examination of the chest. Electronically Signed: Siddharth Huizar MD at 18:33 EDT , CC: Dr. Rock Hurst DO; [facility] Basket Bottom Machine Operator: Signed Normal [facility] D-Dimer Quantitative (DVT/PE )on 11-04-2023 D-DIMER QUANT 0.34 FEU/ug/m Normal 0.27-0.49 [facility] Comment on above: Result Comment: NORM AL D-Dimer level (<0.50) indicates no DVT or PE. Performed By: #### L 300.8000, L100.0100, L501.4897, L500.2500 #### [facility] [address] [place], [address] Emergency Department Summary on 11-04-2023 Emergency Department Summary [facility] Medical Records Department [address] [place] [address] Emergency Department Summary 11/04/23 MR#: [id number] Acct: [id number] Name: BENJAMIN GUTIERREZ Jr. Rep #: [id number] : 1965 58 From: Rock Hurst DO PCP: [facility] Status:DEP ER Location: ED HPI History of Present Illness Chief Complaint: Chest Pain Informant: patient and EMS Narrative Narrative: 58-year-old male presenting to the emergency room for evaluation of chest pain. Patient states he was sitting in a lawn chair outside when he developed some shortness of breath and then a tightness in the center of his chest that seem to radiate to the left arm. He reports a history of hypertension hypercholesterolemia that is not currently treated. He also notes a history of depression that is currently not treated. He was being seen by the [facility] but states he has not been there for about 3 to 4 months because he owes them about $500. He does not see anybody for mental health currently. He states he does not have any stents in his heart but that he has had several light heart attacks at [facility]. He has never been to our hospital before. He is currently feeling better. He did not experience any wheezing. He is small amount of coughing at the time. He chews tobacco but is a non-smoker. [facility] Medical History Depression Hypertension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 psychiatric clinic but had not yet been given an appointment. Review of Systems Constitutional: Negative. HENT: Negative. Eyes: Negative. Respiratory: Positive for chest tightness and shortness of breath. Negative for cough and wheezing. Cardiovascular: Negative. Gastrointestinal: Negative. Genitourinary: Negative. Musculoskeletal: Positive for back pain. Neurological: Positive for tremors. Psychiatric/Behavioral: Positive for agitation, behavioral problems, confusion, dysphoric mood and sleep disturbance. Negative for hallucinations, self-injury and suicidal ideas. The patient is nervous/anxious. PAST MEDICAL HISTORY Diagnosis Date - Alcoholism in remission (HCC) 08/30/2020 - Anxiety 2012 - Bilateral headaches 05/19/2017 - Chronic bilateral low back pain - Depression 2012 - GERD (gastroesophageal reflux disease) - HTN (hypertension) 10/24/2014 - Hyperlipemia - Old [place] (myocardial infarction) 2007 Per Pt report, 2007 presented to [facility] (never underwent cardiac cath) - Other insomnia 2012 - PTSD (post-traumatic stress disorder) 08/30/2020 - Thoracic ascending aortic aneurysm (HCC) 08/30/2020 echocardiogram - Tremors of nervous system 05/19/2017 PAST SURGICAL HISTORY Procedure Laterality Date - BACK SURGERY HX 2002 lumbar discectomy - REPAIR ROTATOR CUFF,ACUTE Right 2008 FAMILY HISTORY Problem Relation Age of Onset - Pneumonia Mother - Alzheimer's Disease Mother - Ischemic Heart Disease Father 49 of [place] at age 49 - Depression Brother - Tourette syndrome Brother - No Known Problems Maternal Grandmother - No Known Problems Maternal Grandfather - No Known Problems Paternal Grandmother - No Known Problems Paternal Grandfather Social History Tobacco Use - Smoking status: Former Smoker Packs/day: 2.50 Years: 2.00 Pack years: 5.00 Quit date: 03/01/1995 Years since quittin.9 - Smokeless tobacco: Current User Types: Chew Substance Use Topics - Alcohol use: Not Currently Comment: recovery since 1994 - Drug use: No ALLERGIES Allergen Reactions - Lorazepam Mental Status Change - Penicillins Swelling Current Outpatient Medications Medication Sig - meloxicam (MOBIC) 7.5 mg tablet 1 tablet by mouth PRN - aspirin, enteric coated (ECOTRIN LOW STRENGTH) 81 mg EC tablet Take 1 tablet by mout (more content not included)... Normal [facility] Frantz 01-24-2021 CNPN Telephone (PSYLME) -- BENJAMIN GUTIERREZ ([id number]) 1965 M Date Time Provider Department 01/24/21 ADINA DOUGLAS During your visit today, we recorded the following information about you: SILVIA Sainz 01/24/2021 12:22 PM Signed BEHAVIORAL HEALTH SOCIAL WORK CONSULT NOTE Service Date: January 24, 2021 Patient was identified by name and Patient: Benjamin Gutierrez [address] [address] (home) [phone] (cell) PCP: Parviz Smith MD [id number] [facility] [address] Patient identified for [facility] from: PCP (Dr Smith) Reason for referral: Resources Behavioral Health Resources: Psychiatry med management;Psychology - talk therapy (depression/intermittent explosvie d/o) [facility] encounter type: Telephone Encounter Assessment: [facility] received a consult from Dr Smith, for psychology and psychiatry, to address depression/intermittent explosvie d/o -h/o depression [facility] reviewed Pt's chart/insurance Pt resides in [facility] contacted Pt at [phone] -reported he has h/o counseling, last seen 5yrs ago, stopped felt it was not helpful -talked about troubles he had growing up and things he witnessed -h/o being on paxil, effected his b/p, caused tremors and acting out violently -started on zoloft -wants to see psychiatry/counseling in [facility] -will consider [facility] wstr if community resources don't meet his needs -[facility] will send the following resources in [facility]: [facility] [address] [place] [address] *they have counseling in [place], counseling and psychiatry in [facility] [address] [place] [address] *counseling and psychiatry [facility]/ [facility] [address] [place], [place] [address] [facility] ([facility]) [address] [place] [address] [facility] [address], [place], [place] [id number] [facility] [address] [place], [place] [id number] Crisis line [phone] SW will f/u if no response Medications: Current Outpatient Medications on File Prior to Visit Medication Sig - meloxicam (MOBIC) 7.5 mg tablet 1 tablet by mouth PRN - sertraline (ZOLOFT) 50 mg tablet Take 1 tablet by mouth once daily. - atenolol (TENORMIN) 25 mg tablet Take 1 tablet by mouth once daily. - aspirin, enteric coated (ECOTRIN LOW STRENGTH) 81 mg EC tablet Take 1 tablet by mouth once daily. No current facility-administered medications on file prior to visit. Curbside: No Screening Tools: No Substance Use / Abuse: No Outcome / Plan / Referrals: Attempts to Outreach: 1 attempt Referral made: Psychology - External;Psychiatry - External;Psychology - Internal Psychology-Internal referral type: (offered [facility]) Psychology-External referral type: Therapy Psychiatry-External referral type: Medication Management Reason for external referral: Other (offered additional options) Final Disposition: Resources given (01-24-21 spoke with pt, would like services in [place],agreed to have resoources sent in [facility]) Patient Discharged?: No Patient reported that caregiver was able to meet their needs today?: Yes Internal Referrals : Yes -Patient advised of treatment options available at [facility]. Patient was informed that they will be moving on for further evaluation if seeking treatment within the [facility] system. Reason for External Referrals : Other : Offered additional options Intervention: Supportive Listening Provided referral information Resources Provided: Medication Management Talk Therapy Other: crisis line Time Spent: 15 minutes SILVIA Sainz Allergies As of Date: 01/24/2021 Noted Allergy Reaction PENICILLINS 11/18/2012 7 - Swelling Date Reviewed: 01/24/2021 Reviewed by: Sol Servin Ma - Fully Assessed Reason for Visit: Consult [173] Cmt: Initial [facility] Pt Outreach Prescriptions as of 01/24/2021 - meloxicam (MOBIC) 7.5 mg tablet 1 tablet by mouth PRN - sertraline (ZOLOFT) 50 mg tablet Take 1 tablet by mouth once daily. - atenolol (TENORMIN) 25 mg tablet Take 1 tablet by mouth once daily. - aspirin, enteric coated (ECOTRIN LOW STRENGTH) 81 mg EC tablet Take 1 tablet by mouth once daily. Problem List As Of Date 01/24/2021 Noted Resolved Chest pain [R07.9] 08/29/2020 08/30/2020 Depression [F32.A] 10/24/2014 HTN (hypertension) [I10] 10/24/2014 Hyperlipemia [E78.5] 10/24/2014 Back pain [M54.9] 10/24/2014 Tremor [R25.1] 01/24/2021 Encounter Status:Closed by ADINA DOUGLAS on 01/24/21 Normal [facility] Metabolic Panelon 01-21 Potassium [Moles/Vol] 3.8 mmol/L Normal 3.5-5.1 [facility] Comment on above: Performed By: #### C MP3, HEMDF #### [facility] [employer] [facility] [address] [place] [address] ALP [Catalytic activity/Vol] 70 U/L Normal 38-126 [facility] Comment on above: Performed By: #### C MP3, HEMDF #### [facility] [address] [place] [address] ALT [Catalytic activity/Vol] 19 U/L Normal 0-49 [facility] Comment on above: Result Comment: The ALT test is performed by an updated assay method. Please note that the reference intervals have been changed and are now sex specific. Performed By: #### C MP3, HEMDF #### [facility] [address] [place] [address] Calcium [Mass/Vol] 10.1 mg/dL Normal 8.4-10.4 [facility] Comment on above: Performed By: #### C MP3, HEMDF #### [facility] [address] [place] [address] Glucose [Mass/Vol] 100 mg/dL Normal 70-100 [facility] Comment on above: Performed By: #### C MP3, HEMDF #### [facility] [address] [place] [address] Protein [Mass/Vol] 8.1 g/dL Normal 6.3-8.2 [facility] Comment on above: Performed By: #### C MP3, HEMDF #### [facility] [address] [place] [address] Urea nitrogen [Mass/Vol] 12 mg/dL Normal 7-17 [facility] Comment on above: Performed By: #### C MP3, HEMDF #### [facility] [address] [place] [address] Anion gap [Moles/Vol] 4 mmol/L Normal 3-13 [facility] Comment on above: Performed By: #### C MP3, HEMDF #### [facility] [address] [place] [address] AST [Catalytic activity/Vol] 29 U/L Normal 15-46 [facility] Comment on above: Performed By: #### C MP3, HEMDF #### [facility] [address] [place] [address] Bilirubin [Mass/Vol] 0.4 mg/dL Normal 0.2-1.3 [facility] Comment on above: Performed By: #### C MP3, HEMDF #### [facility] [address] [place] [address] CO2 [Moles/Vol] 28 mmol/L Normal 22-30 [facility] Comment on above: Performed By: #### C MP3, HEMDF #### [facility] [address] [place] [address] Creatinine [Mass/Vol] 0.71 mg/dL Normal 0.52-1.25 [facility] Comment on above: Performed By: #### C MP3, HEMDF #### [facility] [address] [place] [address] eGFR OTHER > 90.0 Normal >60 [facility] Comment on above: Result Comment: KDIG O guidelines provide the following GFR categories: Stage GFR(ml/min/1.73 m2) Terms G1 >=90 Normal or high G2 60-89 Mildly decreased* G3a 45-59 Mildly to moderately decreased G3b 30-44 Moderately to severely decreased G4 15-29 Severely decreased G5 <15 Kidney failure *Relative to young adult level. In the absence of evidence of kidney damage, neither GFR category G1 nor G2 fulfill the criteria for CKD. The CKD-EPI equation is validated in individuals 18 years of age and older. Currently the best equation for estimating glomerular filtration rate (GFR) from serum creatinine in children is the Bedside Wallace equation. It is less accurate in patients with extremes of muscle mass, restriction of dietary protein, ingestion of creatine, extra-renal metabolism of creatinine, or treatment with medications that affect renal tubular creatinine secretion. Performed By: #### C MP3, HEMDF #### [facility] [address] [place] [address] GFR/1.73 sq M.predicted among blacks MDRD (S/P/Bld) [Vol rate/Area] mL/min/{1.73_m2} Normal >60 [facility] Comment on above: Performed By: #### C MP3, HEMDF #### [facility] [address] [place] [address] Albumin [Mass/Vol] 4.6 g/dL Normal 3.5-5.0 [facility] Comment on above: Performed By: #### C MP3, HEMDF #### [facility] [address] [place] [address] Chloride [Moles/Vol] 108 mmol/L High 98-107 [facility] Comment on above: Performed By: #### C MP3, HEMDF #### [facility] [address] [place] [address] Sodium [Moles/Vol] 140 mmol/L Normal 135-145 [facility] Comment on above: Performed By: #### C MP3, HEMDF #### [facility] [address] [place] [address] Hemogram w/ Autodiffon 01-21 Abs Baso Cnt 0.1 10*3/uL Normal 0.0-0.2 [facility] Comment on above: Performed By: #### C MP3, HEMDF #### [facility] [address] [place] [address] Abs Neutrophile Cnt 6.0 10*3/uL Normal 1.8-7.0 [facility] Comment on above: Performed By: #### C MP3, HEMDF #### [facility] [address] [place] [id number] Basophils/100 WBC (Bld) 0.7 % Normal 0.0-2.0 [facility] Comment on above: Performed By: #### C MP3, HEMDF #### [facility] [address] [place] [address] Eosinophils (Bld) [#/Vol] 0.2 10*3/uL Normal 0.0-0.5 [facility] Comment on above: Performed By: #### C MP3, HEMDF #### [facility] [address] [place] [address] Eosinophils/100 WBC (Bld) 2.0 % Normal 1.0-6.0 [facility] Comment on above: Performed By: #### C MP3, HEMDF #### [facility] [address] [place] [address] Erythrocyte distribution width (RBC) [Ratio] 13.0 % Normal 11.5-14.5 [facility] Comment on above: Performed By: #### C MP3, HEMDF #### [facility] [address] [place] [address] Granulocytes/100 WBC (Bld) 68.8 % Normal 40.0-80.0 [facility] Comment on above: Performed By: #### C MP3, HEMDF #### [facility] [address] [place] [address] Hematocrit (Bld) [Volume fraction] 45.9 % Normal 40.0-52.0 [facility] Comment on above: Performed By: #### C MP3, HEMDF #### [facility] [address] [place] [address] Hemoglobin (Bld) [Mass/Vol] 16.5 g/dL Normal 13.0-18.0 [facility] Comment on above: Performed By: #### C MP3, HEMDF #### [facility] [address] [place] [address] Lymphocytes (Bld) [#/Vol] 1.6 10*3/uL Normal 1.0-4.3 [facility] Comment on above: Performed By: #### C MP3, HEMDF #### [facility] [address] [place] [address] Lymphocytes/100 WBC (Bld) 18.8 % Low 20.0-40.0 [facility] Comment on above: Performed By: #### C MP3, HEMDF #### [facility] [address] [place] [address] MCH (RBC) [Entitic mass] 30.7 pg Normal 26.0-34.0 [facility] Comment on above: Performed By: #### C MP3, HEMDF #### [facility] [address] [place] [address] MCHC 35.9 % Normal 32.0-36.0 [facility] Comment on above: Performed By: #### C MP3, HEMDF #### [facility] [address] [place] [address] MCV (RBC) [Entitic vol] 85.6 fL Normal 80.0-98.0 [facility] Comment on above: Performed By: #### C MP3, HEMDF #### [facility] [address] [place] [address] Monocytes (Bld) [#/Vol] 0.8 10*3/uL Normal 0.0-0.8 [facility] Comment on above: Performed By: #### C MP3, HEMDF #### [facility] [address] [place] [address] Monocytes/100 WBC (Bld) 9.7 % Normal 2.0-10.0 [facility] Comment on above: Performed By: #### C MP3, HEMDF #### [facility] [address] [place] [address] Platelet mean volume (Bld) [Entitic vol] 8.6 fL Normal 7.4-10.4 [facility] Comment on above: Performed By: #### C MP3, HEMDF #### [facility] [address] [place] [address] Platelets (Bld) [#/Vol] 225 10*3/uL Normal 140-440 [facility] Comment on above: Performed By: #### C MP3, HEMDF #### [facility] [address] [place] [address] RBC (Bld) [#/Vol] 5.36 10*6/uL Normal 4.40-5.90 [facility] Comment on above: Performed By: #### C MP3, HEMDF #### [facility] [address] [place] [address] WBC (Bld) [#/Vol] 8.7 10*3/uL Normal 3.6-10.7 [facility] Comment on above: Performed By: #### C MP3, HEMDF #### [facility] [address] [place] [address] PSA, Free and Totalon 2020 PSA Percent Free 33 % Normal [facility] Comment on above: Result Comment: INTE RPRETIVE INFORMATION: Prostate Specific Antigen, Free Percentage [facility] uses the Michael Free PSA electrochemiluminescent immunoassay method in conjunction with the Michael PSA electrochemiluminescent immunoassay method to determine the free PSA percentage. Values obtained with different assay methods should not be used interchangeably. The free PSA percentage is an aid in distinguishing prostate cancer from benign prostatic conditions in men age 50 and older with a total PSA between 3 and 10 ng/mL and negative digital rectal examination findings. Prostatic biopsy is required for the diagnosis of cancer. In patients with total PSA concentrations of 4-10 ng/mL, the probability of finding prostate cancer on needle biopsy by age in years is: %fPSA 50-59 60-69 70 or older 0 - 10% 49% 58% 65% 11 - 18% 27% 34% 41% 19 - 25% 18% 24% 30% Greater than 25% 9% 12% 16% Other factors may help determine the actual risk of prostate cancer in individual patients. Performed By: Doutor Recomenda [address] [place] [id number] [employer]: Ilana Yancey MD Performed By: #### H A1C2, CMP3, LIPD2, HEMDF #### [place] [address] #### PSAO #### The performing lab is in the report. PSA, Free 0.6 ng/mL Normal [facility] Comment on above: Performed By: #### H A1C2, CMP3, LIPD2, HEMDF #### [facility] [address] [place] [address] #### PSAO #### The performing lab is in the report. PSA, Total 1.8 ng/mL Normal 0.0-4.0 [facility] Comment on above: Result Comment: INTE RPRETIVE INFORMATION: Prostate Specific Antigen The Michael PSA electrochemiluminescent immunoassay was used. Results obtained with different test methods or kits cannot be used interchangeably. The Michael PSA method is approved for use as an aid in the detection of prostate cancer when used in conjunction with a digital rectal exam in men age 50 and older. The Michael PSA method is also indicated for the serial measurement of PSA to aid in the prognosis and management of prostate cancer patients. Elevated PSA concentrations can only suggest the presence of prostate cancer until biopsy is performed. PSA concentrations can also be elevated in benign prostatic hyperplasia or inflammatory conditions of the prostate. PSA is generally not elevated in healthy men or men with non-prostatic carcinoma. Performed By: #### H A1C2, CMP3, LIPD2, HEMDF #### [facility] [address] [place] [address] #### PSAO #### The performing lab is in the report. CBC Auto Differentialon 12-30 Absolute Baso # 0.1 10*3/uL 0.0 - 0.2 10*3/uL [facility] Absolute Neut # 3.8 10*3/uL 1.8 - 7.0 10*3/uL [facility] Basophils/100 WBC (Bld) 0.9 % 0.0 - 2.0 % [facility] Eosinophils (Bld) [#/Vol] 0.2 10*3/uL 0.0 - 0.5 10*3/uL [facility] Eosinophils/100 WBC (Bld) 3.7 % 1.0 - 6.0 % [facility] Granulocytes/100 WBC (Bld) 60.8 % 40.0 - 80.0 % [facility] Hematocrit (Bld) [Volume fraction] 44.3 % 40.0 - 52.0 % [facility] Hemoglobin.gastro intestinal spec 1 Ql (Stl) 15.6 g/dL 13.0 - 18.0 g/dL [facility] Lymphocytes (Bld) [#/Vol] 1.6 10*3/uL 1.0 - 4.3 10*3/uL [facility] Lymphocytes/100 WBC (Bld) 26.1 % 20.0 - 40.0 % [facility] MCH (RBC) [Entitic mass] 30.2 pg 26.0 - 34.0 pg [facility] MCHC (RBC) [Mass/Vol] 35.2 % 32.0 - 36.0 % [facility] MCV (RBC) [Entitic vol] 85.8 fL 80.0 - 98.0 fL [facility] Monocytes (Bld) [#/Vol] 0.5 10*3/uL 0.0 - 0.8 10*3/uL [facility] Monocytes/100 WBC (Bld) 8.5 % 2.0 - 10.0 % [facility] Platelet distribution width (Bld) [Ratio] 12.8 % 11.5 - 14.5 % [facility] Platelet mean volume (Bld) [Entitic vol] 8.1 fL 7.4 - 10.4 fL [facility] Platelets (Bld) [#/Vol] 189 10*3/uL 140 - 440 10*3/uL [facility] RBC (Bld) [#/Vol] 5.16 10*6/uL 4.40 - 5.9 0 10*6/uL [facility] WBC (Bld) [#/Vol] 6.2 10*3/uL 3.6 - 10.7 10*3/uL [facility] Test Performed by [facility], [address] [place] [address] , [address] LAB [facility] Comp Metabolic Panelon 01-11 Calcium [Mass/Vol] 9.9 mg/dL Normal 8.4-10.4 [facility] Comment on above: Performed By: #### H A1C2, CMP3, LIPD2, HEMDF #### [place] [address] #### PSAO #### The performing lab is in the report. ALP [Catalytic activity/Vol] 66 U/L Normal 38-126 [facility] Comment on above: Performed By: #### H A1C2, CMP3, LIPD2, HEMDF #### [place] [address] #### PSAO #### The performing lab is in the report. ALT [Catalytic activity/Vol] 17 U/L Normal 0-49 [facility] Comment on above: Result Comment: The ALT test is performed by an updated assay method. Please note that the reference intervals have been changed and are now sex specific. Performed By: #### H A1C2, CMP3, LIPD2, HEMDF #### [place] [address] #### PSAO #### The performing lab is in the report. Anion gap [Moles/Vol] 5 mmol/L Normal 3-13 [facility] Comment on above: Performed By: #### H A1C2, CMP3, LIPD2, HEMDF #### [address] [place] [address] #### PSAO #### The performing lab is in the report. AST [Catalytic activity/Vol] 22 U/L Normal 15-46 [facility] Comment on above: Performed By: #### H A1C2, CMP3, LIPD2, HEMDF #### [address] [place] [address] #### PSAO #### The performing lab is in the report. Bilirubin [Mass/Vol] 0.6 mg/dL Normal 0.2-1.3 [facility] Comment on above: Performed By: #### H A1C2, CMP3, LIPD2, HEMDF #### [address] [place] [address] #### PSAO #### The performing lab is in the report. CO2 [Moles/Vol] 31 mmol/L High 22-30 [facility] Comment on above: Performed By: #### H A1C2, CMP3, LIPD2, HEMDF #### [address] [place] [address] #### PSAO #### The performing lab is in the report. Creatinine [Mass/Vol] 0.83 mg/dL Normal 0.52-1.25 [facility] Comment on above: Performed By: #### H A1C2, CMP3, LIPD2, HEMDF #### [address] [place] [address] #### PSAO #### The performing lab is in the report. eGFR OTHER > 90.0 Normal >60 [facility] Comment on above: Result Comment: KDIG O guidelines provide the following GFR categories: Stage GFR(ml/min/1.73 m2) Terms G1 >=90 Normal or high G2 60-89 Mildly decreased* G3a 45-59 Mildly to moderately decreased G3b 30-44 Moderately to severely decreased G4 15-29 Severely decreased G5 <15 Kidney failure *Relative to young adult level. In the absence of evidence of kidney damage, neither GFR category G1 nor G2 fulfill the criteria for CKD. The CKD-EPI equation is validated in individuals 18 years of age and older. Currently the best equation for estimating glomerular filtration rate (GFR) from serum creatinine in children is the Bedside Wallace equation. It is less accurate in patients with extremes of muscle mass, restriction of dietary protein, ingestion of creatine, extra-renal metabolism of creatinine, or treatment with medications that affect renal tubular creatinine secretion. Performed By: #### H A1C2, CMP3, LIPD2, HEMDF #### [address] [place] [address] #### PSAO #### The performing lab is in the report. GFR/1.73 sq M.predicted among blacks MDRD (S/P/Bld) [Vol rate/Area] mL/min/{1.73_m2} Normal >60 [facility] Comment on above: Performed By: #### H A1C2, CMP3, LIPD2, HEMDF #### [address] [place] [address] #### PSAO #### The performing lab is in the report. Glucose [Mass/Vol] 102 mg/dL High 70-100 [facility] Comment on above: Performed By: #### H A1C2, CMP3, LIPD2, HEMDF #### [address] [place] [address] #### PSAO #### The performing lab is in the report. Protein [Mass/Vol] 7.6 g/dL Normal 6.3-8.2 [facility] Comment on above: Performed By: #### H A1C2, CMP3, LIPD2, HEMDF #### [address] [place] [address] #### PSAO #### The performing lab is in the report. Urea nitrogen [Mass/Vol] 15 mg/dL Normal 7-17 [facility] Comment on above: Performed By: #### H A1C2, CMP3, LIPD2, HEMDF #### [address] [place] [address] #### PSAO #### The performing lab is in the report. Potassium [Moles/Vol] 4.3 mmol/L Normal 3.5-5.1 [facility] Comment on above: Performed By: #### H A1C2, CMP3, LIPD2, HEMDF #### [address] [place] [address] #### PSAO #### The performing lab is in the report. Albumin [Mass/Vol] 4.4 g/dL Normal 3.5-5.0 [facility] Comment on above: Performed By: #### H A1C2, CMP3, LIPD2, HEMDF #### [address] [place] [address] #### PSAO #### The performing lab is in the report. Chloride [Moles/Vol] 106 mmol/L Normal 98-107 [facility] Comment on above: Performed By: #### H A1C2, CMP3, LIPD2, HEMDF #### [address] [place] [address] #### PSAO #### The performing lab is in the report. Sodium [Moles/Vol] 142 mmol/L Normal 135-145 [facility] Comment on above: Performed By: #### H A1C2, CMP3, LIPD2, HEMDF #### [address] [place] [address] #### PSAO #### The performing lab is in the report. Comprehensive Metabolic Pane reji 01-11-2021 Albumin [Mass/Vol] 4.4 g/dL 3.5 - 5.0 g/dL [facility] ALP (Bld) [Catalytic activity/Vol] 66 U/L 38 - 126 U/L [facility] ALT [Catalytic activity/Vol] 17 U/L 0 - 49 U/L [facility] Comment on above: The ALT test is perf ormed by an updated assay method. Please note that the reference intervals have been changed and are now sex specific. Anion gap [Moles/Vol] 5 mmol/L 3 - 13 mmol/L [facility] AST [Catalytic activity/Vol] 22 U/L 15 - 46 U/L [facility] Bilirubin [Mass/Vol] 0.6 mg/dL 0.2 - 1.3 mg/dL [facility] Calcium [Mass/Vol] 9.9 mg/dL 8.4 - 10.4 mg/dL [facility] Chloride [Moles/Vol] 106 mmol/L 98 - 107 mmol/L [facility] CO2 [Moles/Vol] 31 mmol/L High 22 - 30 mmol/L [facility] Creatinine [Mass/Vol] 0.83 mg/dL 0.52 - 1.25 mg/dL [facility] EGFR IF NonAfrican Citizen Of [place] >90.0 >60 mL/min [facility] Comment on above: KDIGO guidelines pro vide the following GFR categories: Stage GFR(ml/min/1.73 m2) Terms G1 >=90 Normal or high G2 60-89 Mildly decreased* G3a 45-59 Mildly to moderately decreased G3b 30-44 Moderately to severely decreased G4 15-29 Severely decreased G5 <15 Kidney failure *Relative to young adult level. In the absence of evidence of kidney damage, neither GFR category G1 nor G2 fulfill the criteria for CKD. The CKD-EPI equation is validated in individuals 18 years of age and older. Currently the best equation for estimating glomerular filtration rate (GFR) from serum creatinine in children is the Bedside Wallace equation. It is less accurate in patients with extremes of muscle mass, restriction of dietary protein, ingestion of creatine, extra-renal metabolism of creatinine, or treatment with medications that affect renal tubular creatinine secretion. Free PSA/Total PSA [Mass fraction] 7.6 g/dL 6.3 - 8.2 g/dL [facility] GFR/1.73 sq M.predicted among blacks MDRD (S/P/Bld) [Vol rate/Area] mL/min/{1.73_m2} >60 mL/min [facility] Glucose [Mass/Vol] 102 mg/dL High 70 - 100 mg/dL [facility] Potassium [Moles/Vol] 4.3 mmol/L 3.5 - 5.1 mmol/L [facility] Sodium [Moles/Vol] 142 mmol/L 135 - 145 mmol/L [facility] Urea nitrogen (BldV) [Mass/Vol] 15 mg/dL 7 - 17 mg/dL [facility] Hemoglobin A1Con 01-11-2021 Glucose [Mass/Vol] 108 mg/dL Normal [facility] [employer] [facility] Comment on above: Performed By: #### H A1C2, CMP3, LIPD2, HEMDF #### [address] [place] [address] #### PSAO #### The performing lab is in the report. HbA1c (Bld) [Mass fraction] 5.4 % Normal [facility] Comment on above: Result Comment: Norm al less than 5.7% Prediabetes 5.7% to 6.4% Diabetes 6.5% or higher --HgbA1C levels may not be accurate in patients who have renal disease, received recent blood transfusions, are anemic, or who have dyshemoglobinemia. Performed By: #### H A1C2, CMP3, LIPD2, HEMDF #### [address] [place] [address] #### PSAO #### The performing lab is in the report. eAG 108 mg/dL [facility] HbA1c (Bld) [Mass fraction] 5.4 % [facility] Comment on above: Normal less than 5.7 % Prediabetes 5.7% to 6.4% Diabetes 6.5% or higher --HgbA1C levels may not be accurate in patients who have renal disease, received recent blood transfusions, are anemic, or who have dyshemoglobinemia. Test Performed by [facility], [address] [place] [address]. [address] LAB [facility] Hemogram w/ Autodiffon 01-11 Abs Baso Cnt 0.1 10*3/uL Normal 0.0-0.2 [facility] Comment on above: Performed By: #### H A1C2, CMP3, LIPD2, HEMDF #### [address] [place] [address] #### PSAO #### The performing lab is in the report. Abs Neutrophile Cnt 3.8 10*3/uL Normal 1.8-7.0 [facility] Comment on above: Performed By: #### H A1C2, CMP3, LIPD2, HEMDF #### [address] [place] [address] #### PSAO #### The performing lab is in the report. Basophils/100 WBC (Bld) 0.9 % Normal 0.0-2.0 [facility] Comment on above: Performed By: #### H A1C2, CMP3, LIPD2, HEMDF #### [address] [place] [address] #### PSAO #### The performing lab is in the report. Eosinophils (Bld) [#/Vol] 0.2 10*3/uL Normal 0.0-0.5 [facility] Comment on above: Performed By: #### H A1C2, CMP3, LIPD2, HEMDF #### [address] [place] [address] #### PSAO #### The performing lab is in the report. Eosinophils/100 WBC (Bld) 3.7 % Normal 1.0-6.0 [facility] Comment on above: Performed By: #### H A1C2, CMP3, LIPD2, HEMDF #### [address] [place] [address] #### PSAO #### The performing lab is in the report. Erythrocyte distribution width (RBC) [Ratio] 12.8 % Normal 11.5-14.5 [facility] Comment on above: Performed By: #### H A1C2, CMP3, LIPD2, HEMDF #### [address] [place] [address] #### PSAO #### The performing lab is in the report. Granulocytes/100 WBC (Bld) 60.8 % Normal 40.0-80.0 [facility] Comment on above: Performed By: #### H A1C2, CMP3, LIPD2, HEMDF #### [address] [place] [address] #### PSAO #### The performing lab is in the report. Hematocrit (Bld) [Volume fraction] 44.3 % Normal 40.0-52.0 [facility] Comment on above: Performed By: #### H A1C2, CMP3, LIPD2, HEMDF #### [address] [place] [address] #### PSAO #### The performing lab is in the report. Hemoglobin (Bld) [Mass/Vol] 15.6 g/dL Normal 13.0-18.0 [facility] Comment on above: Performed By: #### H A1C2, CMP3, LIPD2, HEMDF #### [address] [place] [address] #### PSAO #### The performing lab is in the report. Lymphocytes (Bld) [#/Vol] 1.6 10*3/uL Normal 1.0-4.3 [facility] Comment on above: Performed By: #### H A1C2, CMP3, LIPD2, HEMDF #### [place] [address] #### PSAO #### The performing lab is in the report. Lymphocytes/100 WBC (Bld) 26.1 % Normal 20.0-40.0 [facility] Comment on above: Performed By: #### H A1C2, CMP3, LIPD2, HEMDF #### [place] [address] #### PSAO #### The performing lab is in the report. MCH (RBC) [Entitic mass] 30.2 pg Normal 26.0-34.0 [facility] Comment on above: Performed By: #### H A1C2, CMP3, LIPD2, HEMDF #### [place] [address] #### PSAO #### The performing lab is in the report. MCHC 35.2 % Normal 32.0-36.0 [facility] Comment on above: Performed By: #### H A1C2, CMP3, LIPD2, HEMDF #### [place] [address] #### PSAO #### The performing lab is in the report. MCV (RBC) [Entitic vol] 85.8 fL Normal 80.0-98.0 [facility] Comment on above: Performed By: #### H A1C2, CMP3, LIPD2, HEMDF #### [address] [place] [address] #### PSAO #### The performing lab is in the report. Monocytes (Bld) [#/Vol] 0.5 10*3/uL Normal 0.0-0.8 [facility] Comment on above: Performed By: #### H A1C2, CMP3, LIPD2, HEMDF #### [address] [place] [address] #### PSAO #### The performing lab is in the report. Monocytes/100 WBC (Bld) 8.5 % Normal 2.0-10.0 [facility] Comment on above: Performed By: #### H A1C2, CMP3, LIPD2, HEMDF #### [place] [address] #### PSAO #### The performing lab is in the report. Platelet mean volume (Bld) [Entitic vol] 8.1 fL Normal 7.4-10.4 [facility] Comment on above: Performed By: #### H A1C2, CMP3, LIPD2, HEMDF #### [place] [address] #### PSAO #### The performing lab is in the report. Platelets (Bld) [#/Vol] 189 10*3/uL Normal 140-440 [facility] Comment on above: Performed By: #### H A1C2, CMP3, LIPD2, HEMDF #### [place] [address] #### PSAO #### The performing lab is in the report. RBC (Bld) [#/Vol] 5.16 10*6/uL Normal 4.40-5.90 [facility] Comment on above: Performed By: #### H A1C2, CMP3, LIPD2, HEMDF #### [place] [address] #### PSAO #### The performing lab is in the report. WBC (Bld) [#/Vol] 6.2 10*3/uL Normal 3.6-10.7 [facility] Comment on above: Performed By: #### H A1C2, CMP3, LIPD2, HEMDF #### [facility] [address] [place] [address] #### PSAO #### The performing lab is in the report. Lipid Panelon 01-11-2021 Chol/HDL 6 Normal [facility] Comment on above: Result Comment: Ref Range: < 3 Low Risk for CHD 3-6 Mod Risk for CHD > 6 High Risk for CHD Performed By: #### H A1C2, CMP3, LIPD2, HEMDF #### [place] [address] #### PSAO #### The performing lab is in the report. Cholesterol in HDL [Mass/Vol] 40 mg/dL Normal 40-60 [facility] Comment on above: Performed By: #### H A1C2, CMP3, LIPD2, HEMDF #### [address] [place] [address] #### PSAO #### The performing lab is in the report. Low Density Lipoprotein 160 mg/dL Abnormal <100 [facility] Comment on above: Performed By: #### H A1C2, CMP3, LIPD2, HEMDF #### [address] [place] [address] #### PSAO #### The performing lab is in the report. Triglyceride [Mass/Vol] 174 mg/dL Abnormal <150 [facility] Comment on above: Performed By: #### H A1C2, CMP3, LIPD2, HEMDF #### [address] [place] [address] #### PSAO #### The performing lab is in the report. Cholesterol [Mass/Vol] 235 mg/dL Abnormal < 200 [facility] Comment on above: Performed By: #### H A1C2, CMP3, LIPD2, HEMDF #### [address] [place] [address] #### PSAO #### The performing lab is in the report. Cholesterol [Mass/Vol] 235 mg/dL Abnormal <200 [facility] Cholesterol in HDL [Mass/Vol] 40 mg/dL 40 - 60 mg/dL [facility] Cholesterol in LDL [Mass/Vol] 160 mg/dL Abnormal <100 [facility] Cholesterol.total /Cholesterol in HDL [Mass ratio] 6 {ratio} [facility] Comment on above: Ref Range: < 3 Low Risk for CHD 3-6 Mod Risk for CHD > 6 High Risk for CHD Triglyceride [Mass/Vol] 174 mg/dL Abnormal <150 [facility] No Panel Informationon 01-11 Interpretation and review of laboratory results Abnormal [facility] Test Performed by [facility], [facility] Gloria Mendoza. , [place], [place] [id number] [place] [address] LAB [facility] CNOVon 09-17-2020 CNOV Office Visit (CARDMM ) -- BENJAMIN GUTIERREZ ([id number]) 1965 M Date Time Provider Department 09/17/20 1:30 PM HAKEEM TALBERT During your visit today, we recorded the following information about you: Pulse Blood pressure Weight Height 63/minute 108/72 86.5 kg 1.803 m Hakeem Talbert APRN.BOILER REPAIRMAN 09/17/2020 2:00 PM Addendum [facility] Heart and Vascular Harmony Bella Mcguire Department of Cardiovascular Medicine SECTION OF REGIONAL CARDIOLOGY Benjamin G Brenda is a 55 year old male with a history of thoracic ascending aorta aneurysm, HTN, HLD, GERD, anxiety, depression, and PTSD who is here today for a hospital follow-up. HPI: The patient presented to [facility] on 08/29/2020 for evaluation of chest discomfort and an episode of unresponsiveness. He had been having episodes of chest pain intermittently for the past month that were exacerbated by mental stress and exertion. He had been under a tremendous amount of stress due to lack of health care coverage and inability to find a consistent job over the last several months. 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 The morning of admission he developed left upper chest pain that radiated down his left arm accompanied by diaphoresis, shortness of breath, and racing heart rate's. He states that he then collapsed (per his ex-fiance's account). Work-up on arrival revealed normal troponin T x 3 sets, and normal high-sensitivity AMINTA x 2 sets. EKG on arrival revealed normal sinus rhythm at 65 bpm with LVH and no acute injury pattern. CXR and head CT normal. He was treated with SL nitroglycerin, IV fluids, ASA 324 mg, and admitted to [facility]. Cardiology was consulted who recommended initiation of lisinopril for blood pressure management and echocardiogram to evaluate heart structure and function. Echo on 08/30/2020 revealed EF 58%, normal LV diastolic function, no significant valvular abnormalities, and dilated aorta (4.4 cm). He was evaluated by both psychology and neurology. He remained stable and was discharged home on 08/30/2020 with recommendation for outpatient nuclear stress testing. Today he reports no further chest discomfort. He has noticed an increase in exertional dyspnea that abates with rest, now occurring with mild to moderate efforts. He denies palpitations, near-syncope, orthopnea (1 pillow), PND, or edema. Relatively low energy levels. Home blood pressures not done. PAST MEDICAL HISTORY Diagnosis Date - Coronary artery disease - Hypertension No past surgical history on file. No family history on file. SOCIAL HISTORY: Social History Tobacco Use - Smoking status: Former Smoker - Smokeless tobacco: Never Used Substance Use Topics - Alcohol use: No - Drug use: No ALLERGIES: Penicillins CURRENT MEDICATIONS: Current Outpatient Medications Medication Sig - pravastatin (PRAVACHOL) 20 mg tablet Take 1 tablet by mouth once daily. - lisinopril (ZESTRIL, PRINIVIL) 20 mg tablet Take 1 tablet by mouth once daily. - diclofenac potassium (CATAFLAM) 50 mg tablet Take 1 tablet by mouth three times daily. - temazepam (RESTORIL) 15 mg Take 1 capsule by mouth at bedtime as needed for up to 30 days. - PARoxetine (PAXIL) 30 mg tablet Take 1 tablet by mouth once daily. - aspirin, enteric coated (ECOTRIN LOW STRENGTH) 81 mg EC tablet Take 1 tablet by mouth once daily. No current facility-administered medications for this visit. ROS: Card: See present history. Pulm: See present history. Gastro: No nausea, vomiting, or diarrhea GenUr: No history of dysuria, frequency or incontinence Endo: Negative for cold or heat intolerance, polyuria or polydipsia. Neuro: Headaches, tremors Musculoskeletal: Chronic low back pain, arthralgias Infect: Negative for fevers or chills. Skin: Negative for lesions, rash, and itching. Heme: Negative for prolonged bleeding, bruising easily or swollen nodes. The remainder of the review of systems is negative. PHYSICAL EXAMINATION: BP 108/72 (BP Site: Right Arm, BP Position: Sitting, BP Cuff Size: Regular Adult) Pulse 63 Ht 180.3 cm (5' 11) Wt 86.5 kg (190 lb 11.2 oz) SpO2 99% BMI 26.60 kg/m? Last 3 Encounter BP Readings: Date: BP: 08/29/2020 161/89 07/16/2020 144/88 07/05/2020 167/93 Last 3 Encounter Pulse Readings: Date: Pulse: 08/29/2020 69 07/16/2020 61 07/05/2020 49 Last 3 Encounter Wt Readings: Date: Wt: 08/29/2020 86.2 kg (190 lb) 07/16/2020 88.5 kg (195 lb) 07/05/2020 90.3 kg (199 lb) GENERAL: alert cooperative, pleasant oriented x 3 (self, time and place) in no acute distress SKIN: warm, dry, no rash. NECK: no JVD, no bruits. CARD: RRR, no murmurs, gallops, or rubs. RESP: Normal respiratory efforts, lungs clear to auscultation bilaterally. ABDOMEN: Soft, nontender, + BS NEURO: A+Ox3, (more content not included)... Normal [facility] -- OKSANA GUTIERREZON Nicole ([id number]) 1965 M Date Time Provider Department 09/04/20 VALERIY JIMENEZ During your visit today, we recorded the following information about you: Yosvany Graham 09/04/2020 10:19 AM Signed Left message asking patient to call back and schedule hospital follow up with cardiology, regina or gloria Reason/Diagnosis for follow up Other-Specify in comments Schedule follow up appointment with physician within 14-30 days Schedule Follow-Up Appointment with (Last Name, First Name): VALERIY JIMENEZ Schedule follow up appointment with mid-level within 4-7 days Schedule with above physician's mid-level Yes Specifc mid-level (Last Name, First Name) HAKEEM TALBERT Ordering Provider iPhone/Pager Number for Questions 0 Location Regina Graham 09/05/2020 12:35 PM Signed Left second message asking patient to call back and schedule with cardiology Clotilde Caldera [facility] 09/09/2020 2:27 PM Signed Patient is scheduled on 09/17 Allergies As of Date: 09/04/2020 Noted Allergy Reaction PENICILLINS 11/18/2012 7 - Swelling Date Reviewed: 08/30/2020 Reviewed by: Valeriy Jimenez DO - Fully Assessed Reason for Visit: Appointment [186] Prescriptions as of 09/09/2020 - pravastatin (PRAVACHOL) 20 mg tablet Take 1 tablet by mouth once daily. - lisinopril (ZESTRIL, PRINIVIL) 20 mg tablet Take 1 tablet by mouth once daily. - diclofenac potassium (CATAFLAM) 50 mg tablet Take 1 tablet by mouth three times daily. - temazepam (RESTORIL) 15 mg Take 1 capsule by mouth at bedtime as needed for up to 30 days. - PARoxetine (PAXIL) 30 mg tablet Take 1 tablet by mouth once daily. Problem List As Of Date 09/04/2020 Noted Resolved Chest pain [R07.9] 08/29/2020 08/30/2020 Encounter Status:Closed by YOSVANY GRAHAM on 09/05/20 Normal [facility] Vital Signs Date Time Vital Sign Value Performing Clinician Faci lity 01-21-2021 19:54-0500 Diastolic blood pressure 71 mm[Hg] Cain Hackett MD Work Phone: [facility] 01-21-2021 19:54-0500 Heart rate 68 /min Cain Hackett MD Work Phone: [facility] 01-21-2021 19:54-0500 Respiratory rate 16 /min Cain Hackett MD Work Phone: [facility] 01-21-2021 19:54-0500 SaO2% (BldA) [Mass fraction] 98 % Cain Hackett MD Work Phone: [facility] 01-21-2021 19:54-0500 Systolic blood pressure 138 mm[Hg] Cain Hackett MD Work Phone: [facility] 01-21-2021 18:25-0500 Body height 180.3 cm Cain Hackett MD Work Phone: [facility] 01-21-2021 18:25-0500 Body mass index (BMI) [Ratio] 27.89 kg/m2 Cain Hackett MD Work Phone: [facility] 01-21-2021 18:25-0500 Body temperature 97.59 [degF] Cain Hackett MD Work Phone: [facility] 01-21-2021 18:25-0500 Body weight 90.72 kg Cain Hackett MD Work Phone: [facility] Encounters Encounter Date Encounter Type Care Provider Facility Start: 06-28-2024 End: 06-28-2024 ambulatory [facility] Facility:[facility] Start: 06-28-2024 End: 06-28-2024 Subsequent hospital visit by physician [facility] Work Phone: Cardiology Lab Comment on above: Essential (primary) hypertension [I10] Start: 11-04-2023 End: 11-04-2023 Emergency department patient visit [facility] Facility:[facility] Start: 08-25-2021 Patient Outreach Adri Blair RN Foreign Student Adviser Teacher Management Comment on above: Transition Of Care ( initial encounter post hosptial discharge 08/22/21) Start: 08-17-2021 Admission to establishment Kaleigh VEGA [facility] Start: 08-17-2021 ambulatory Kaleighadam VEGA [facility] vioral Health Intake Comment on above: Psychiatric Problem Start: 08-04-2021 Admission to establishment Albertina Smith RN [facility] Start: 08-04-2021 ambulatory Albertina Smith RN Behavioral Health Intake Comment on above: Suicidal Ideation Start: 01-21-2021 End: 01-21-2021 Emergency department patient visit Cain Hackett MD Work Phone: [facility] ED Comment on above: Facial abrasion, ini tial encounter (Primary Dx); Abrasion of intraoral region, initial encounter; Current mild episode of major depressive disorder, unspecified whether recurrent (HCC) Start: 01-11-2021 End: 01-11-2021 Subsequent hospital visit by physician Levi Walker DO Work Phone: [facility] Laboratory Start: 06-17-2017 [facility] Start[facility] 05-28-2017 [facility] Start: 05-19-2017 Ambulatory [facility] Start: 11-25-2016 [facility] Start: 11-21-2016 Ambulatory Vinicius Shaffer [facility] Start: 11-18-2016 Ambulatory PROVIDER UNKNOWN [facility] Procedures Date Procedure Procedure Detail Performing Clinician Start: 06-28-2024 Radiologic exam ches t 2 views [facility] Provider Start: 06-28-2024 Ecg routine ecg w/le ast 12 lds i&r only Cj Peraza Work Phone: Start: 06-28-2024 Lipid 1996 panel - S naomie or Plasma [facility] Work Phone: Start: 01-11-2021 Comprehensive metabo lic panel Levi Walker DO Work Phone: Start: 01-11-2021 Lipid panel Levi ibrahim DO Work Phone: Plan of Treatment Date Care Activity Detail Author Start: 08-18-2031 Urine microalbumin profile [facility] Start: 06-28-2029 Lipid panel Lipid Screening [facility] Start: 06-29-2027 Diabetes Screening Diabetes Screenin g [facility] Start: 08-18-2026 LIPID SCREEN LIPID SCREEN [facility] Start: 03-08-2026 LIPID SCREEN LIPID SCREEN [facility] Start: 01-11-2026 Prostate specific antigen measurement Prostate Cancer Screening Discussion [facility] Start: 08-18-2024 DIABETES SCREEN DIABETES SCREEN [facility] Start: 08-17-2024 DIABETES SCREEN DIABETES SCREEN [facility] Start: 08-04-2024 DIABETES SCREEN DIABETES SCREEN [facility] Start: 03-09-2024 COLOGUARD (FIT-DNA) COLOGUARD (FIT-D NA) [facility] Start: 03-09-2024 COLORECTAL CANCER SCREENING COLORECTAL CANCER SCREENING [facility] Start: 03-09-2024 Screening for malign ant neoplasm of colon [facility] Start: 01-12-2024 Diabetes screen Diabetes screen [facility] Start: 10-31-2023 Covid-19 Vaccine ( season) Covid-19 Vaccine ( season) [facility] Start: 10-31-2023 Influenza vaccination Influenza Vacc ine (#1) [facility] Start: 03-24-2022 ANNUAL PCP TEAM SERVICE ESTABLISHMENT ATTENDANT [place] DISEASE VISIT ANNUAL PCP TEAM CHRONIC DISEASE VISIT [facility] Start: 01-11-2022 Creatinine measurement Creatinine mo nitoring [facility] Start: 01-11-2022 Lipid panel Lipid screen [facility] Start: 01-11-2022 Potassium monitoring Potassium monit oring [facility] Start: 10-30-2021 Influenza vaccination INFLUENZA (Sea son Ended) [facility] Start: 10-30-2020 Influenza vaccination Flu vaccine (# 1) [facility] Start: 05-19-2018 Creatinine measurement Creatinine mo nitoring [facility] Start: 05-19-2018 Lipid panel Lipid screen [facility] Start: 05-19-2018 Potassium monitoring Potassium monit oring [facility] Start: 2017 Pneumococcal Vaccine : 50+ (1 of 1 - PCV) Pneumococcal Vaccine: 50+ (1 of 1 - PCV) [facility] Start: 2017 Shingles Vaccine (1 of 2) Shingles Vaccine (1 of 2) [facility] Start: 2017 SHINGRIX VACCINE (1 of 2) SHINGRIX VACCINE (1 of 2) [facility] Start: 01-11-2012 Colonoscopy COLONOSCOPY [facility] Start: 01-11-[address] COLONOGRAPHY [facility] Start: 01-11-2012 FECAL OCCULT BLOOD FECAL OCCULT BLOO D [facility] Start: 01-11-2012 Screening for malign ant neoplasm of colon [facility] Start: 01-11-2012 SIGMOIDOSCOPY SIGMOIDOSCOPY [facility] Start: 1986 DTaP/Tdap/Td vaccine (1 - Tdap) DTaP/Tdap/Td vaccine (1 - Tdap) [facility] Start: 1986 Hepatitis B Vaccine (1 of 3 - 19+ 3-dose series) Hepatitis B Vaccine (1 of 3 - 19+ 3-dose series) [facility] Start: 1986 Urine microalbumin profile DTAP,TDAP,TD (1 - Tdap) [facility] Start: 1985 BP CONTROLLED (<130/80) BP CONTROLLE D (<130/80) [facility] Start: 1982 HIV screening HIV screen [facility] Start: 1979 COVID-19 Vaccine (1) COVID-19 Vaccin e (1) [facility] Start: 01-11-1972 COVID-19 VACCINE (#1) COVID-19 VACCI NE (#1) [facility] Start: 1965 Hepatitis C screening Hepatitis C sc reen [facility] End: 01-21-2021 Comprehensive metabolic 2000 panel - Serum or Plasma [facility] Work Phone: Comment on above: One Time for 1 Occur rences starting 01/21/2021 until 01/21/2021 End: 01-21-2021 Hemogram (CBC) w/Auto Diff [facility] Work Phone: Comment on above: One Time for 1 Occur rences starting 01/21/2021 until 01/21/2021 End: 01-11-2021 PSA, Total and Free PSA, Total and Free Lab Routine Once for 1 Occurrences starting 01/11/2021 until 01/11/2021 [facility] Work Phone: Comment on above: Once for 1 Occurrenc es starting 01/11/2021 until 01/11/2021 PSA, Total and Free PSA, Total a nd Free Lab Routine 01/11/2021 8:54 AM EST [employer] Work Phone: [facility] Immunizations Immunization Date Immunization Notes Care Provider Phoenix corrigan 08-17-2021 tetanus toxoid, redu hui diphtheria toxoid, and acellular pertussis vaccine, adsorbed Kaleigh VEGA [facility] 01-12-2019 influenza, injectabl e, quadrivalent, preservative free Albertina Smith RN [facility] Work Phone: 01-12-2019 influenza virus vaccine, unspecified formulation [facility] Work Phone: [facility] 11-14-2016 influenza, injectabl e, quadrivalent, preservative free Albertina Smith RN [facility] Work Phone: Payers Date Payer Category Payer Self-pay 2020 Private Health Insurance [facility] [id number] 2020-Present [phone] [address] [address] [place] [address] O [id number] 2017 Private Health Insurance [employer] [facility] [employer] [id number] 2017-Present [phone] [address] [place] [address] [id number] Medicaid Private Health Insurance Unknown [id number] Social History Date Type Detail Facility Start: 11-21-2016 End: 01-24-2021 Tobacco smoking status NHIS Ex-smoker [employer] Work Phone: Start: 03-01-1993 End: 03-01-1996 History of tobacco use Current smoker [employer] Phone: Start: 11-21-2016 End: 01-24-2021 Tobacco use and exposure User of smokeless tobacco [employer] Work Phone: Start: 06-17-2017 End: 01-21-2021 Alcohol intake Current non-drinker of alcohol (finding) [employer] Phone: Start: 1965 Sex Assigned At Not on file [employer] Work Phone: Start: 07-25-2021 End: 08-25-2021 Exposure to SARS-CoV-2 (event) Not sure [employer] Work Phone: History of tobacco use Chews Tobacco [facility] Start: 08-04-2021 End: 08-17-2021 Alcohol intake Ex-drinker (finding) [facility] Start: 01-23-2021 History SDOH Alcohol Frequency 1 [facility] Start: 01-23-2021 History SDOH Alcohol Std Drinks 98 [facility] Start: 01-25-2021 History SDOH Alcohol Comment recovery since 1994 [facility] Start: 01-23-2021 History SDOH Social Connections Phone 4 [facility] Start: 01-23-2021 History SDOH Social Connections Get Together 2 [facility] Start: 01-23-2021 History SDOH Social Connections Anabaptism 3 [facility] Start: 01-23-2021 History SDOH Physical Activity DPW 6 [facility] Start: 1965 Sex Assigned At Male [facility] Start: 03-01-1993 End: 03-01-1995 History of tobacco use Cigarette Smoker [facility] Start: 01-24-2021 End: 03-24-2022 Cigarettes smoked current (pack per day) - Reported 2.5 [facility] Start: 01-23-2021 End: 03-24-2022 Social connection and isolation panel [facility] Do you belong to any clubs or organizations such as mu-ism groups, unions, fraternal or athletic groups, or school groups? Yes [facility] Are you now , , , , never or living with a partner? [facility] How often to you hav e a drink containing alcohol? Never [facility] How many standard dr inks containing alcohol do you have on a typical day? Patient declined [facility] How hard is it for y ou to pay for the very basics like food, housing, medical care, and heating Somewhat hard [facility] Do you feel stress - tense, restless, nervous, or anxious, or unable to sleep at night because your mind is troubled all the time - these days [OSQ] Rather much [facility] (I/We) worried wheth er (my/our) food would run out before (I/we) got money to buy more. Never true [facility] Start: 03-03-2021 Gender identity Identifies as male gender (finding) [facility] Start: 03-03-2021 Sexual orientation Heterosexual (finding) [facility] Functional Status Date Assessment Result Facility 08-22-2021 Are you deaf, or do you have serious difficulty hearing No 08/22/2021 3:19 PM Jaden Quijano RN No [facility] 08-22-2021 Are you blind, or do you have serious difficulty seeing, even when wearing glasses No 08/22/2021 3:19 PM Jaden Quijano RN No [facility] 08-22-2021 Do you have serious difficulty walking or climbing stairs No 08/22/2021 3:19 PM Jaden Quijano RN No [facility] 08-22-2021 Do you have difficul ty dressing or bathing No 08/22/2021 3:19 PM Jaden Quijano RN No [facility] 08-22-2021 Because of a physica l, mental, or emotional condition, do you have difficulty doing errands alone such as visiting a physician's office or shopping No 08/22/2021 3:19 PM Jaden Quijano RN No [facility] Mental Status Date Assessment Result Facility 08-22-2021 Because of a physica l, mental, or emotional condition, do you have serious difficulty concentrating, remembering, or making decisions No 08/22/2021 3:19 PM Jaden Quijano RN No [facility] Clinical Notes 08-29-2020 to 06-28-2024 Sandi Ware, RT(R) - 06/28/2024 8:15 AM Bisi Casillas MA - 08/25/2021 4:10 PM Fartun Blair RN - 08/25/2021 3:42 PM Fartun Blair RN - 08/25/2021 12:10 PM EDTInstructions Note Date & Type Note Facility 06-28-2024 History of Present illness Narrative Radiology Service Progress Note PATIENT NAME: Benjamin Gutierrez DATE OF SERVICE: June 28, 2024 TIME: 8:09 AM PATIENT IDENTITY VERIFICATION COMPLETED USING TWO (2) IDENTIFIERS: Name and Date of confirmed by patient verbally. FALL SCREENING: Has the patient had 2 falls in the last year or 1 fall with injury or currently using an Ambulatory Assistive Device (Walker, Cane, Wheelchair, Crutches, etc.)? No PATIENT GENDER DATA: Assigned male at PATIENT RELEVANT IMPLANT DATA REVIEWED: Not Applicable PATIENT PRESENTS WITH AN IMPLANTABLE OR ATTACHED AUTOMOBILE ACCESSORIES INSTALLER: No RADIOLOGY DEPARTMENT: General X-ray: Exam(s) Completed: Chest X-Ray PERIPHERAL IV DATA: Not applicable SIGNED BY: JUANA Hankins) June 28, 2024 8:09 AM documented in this encounter [facility] 06-28-2024 Note HNO ID: [id number] Author: SANDI WARE RT (R) Service: Radiology Author Type: Technologist Type: Progress Notes Filed: 06/28/2024 08:11 Note Text: Radiology Service Progress Note PATIENT NAME: Benjamin Gutierrez DATE OF SERVICE: June 28, 2024 TIME: 8:09 AM PATIENT IDENTITY VERIFICATION COMPLETED USING TWO (2) IDENTIFIERS: Name and Date of confirmed by patient verbally. FALL SCREENING: Has the patient had 2 falls in the last year or 1 fall with injury or currently using an Ambulatory Assistive Device (Walker, Cane, Wheelchair, Crutches, etc.)? No PATIENT GENDER DATA: Assigned male at PATIENT RELEVANT IMPLANT DATA REVIEWED: Not Applicable PATIENT PRESENTS WITH AN IMPLANTABLE OR ATTACHED AUTOMOBILE ACCESSORIES INSTALLER: No RADIOLOGY DEPARTMENT: General X-ray: Exam(s) Completed: Chest X-Ray PERIPHERAL IV DATA: Not applicable SIGNED BY: JUANA Hankins) June 28, 2024 8:09 AM [facility] 08-25-2021 Note HNO ID: [id number] Author: Emelina Casillas MA Service: ? Author Type: Director Executive Communications Type: Progress Notes Filed: 08/25/2021 4:11 PM Note Text: POPULATION HEALTH NAVIGATION OUTREACH Action/FYI August 25, 2021 Called and scheduled patient on 09/03 Emelina Casillas MA Pt identified by name and : YES, via phone Outreach Outcome/Action Spoke to patient or caregiver: Patient scheduled Did you use a PCP flex slot to schedule this appointment? No Reason for Outreach Community Monitoring [place] Payer: Payor: [facility] / Plan: [facility] [employer] / Product Type: HMO / Care Gap Reviewed:: Follow-up appointment Reminder: Reminder note to check Health Maintenance for items below Health Maintenance items due: COVID-19 VACCINE(1) Never done BP CONTROLLED (<130/80) Never done SHINGRIX VACCINE(1 of 2) Never done Message Sent to Practice: No Navigation Signature: Emelina Casillas MA August 25, 2021 4:10 PM [facility] 08-25-2021 Note HNO ID: [id number] Author: Adri Blair RN Service: ? Author Type: Registered Nurse Type: Progress Notes Filed: 08/25/2021 3:50 PM Note Text: TRANSITIONAL CARE MANAGEMENT (TCM) COMMUNITY MONITORING PROGRAM Provider Action/FYI: spoke with patient states he is staying at [facility] for a month and is employed denies any new symptoms since discharge pt does not have f/u appt scheduled with pcp at this time would like to schedule will forward to navigator [place] for scheduling TCM through 09/05/2108/27 counselor f/u listed on AVS SUMMARY: Pt discharged from [facility] on 08/22 Admitted for: Failure of outpatient psychiatric management ? Contact made with patient: Yes Hi my name is Adri Blair RN and I am calling from the [facility] on behalf of your PCP, Parviz Smiht MD I understand you were recently in the hospital so I am calling to check in with you to ensure you are feeling well now that you're home. May I ask you a few questions related to your hospital stay and well-being? Yes Contact with patient post discharge, spoke to patient. Patient identified by name and . Do you feel your health is BETTER, WORSE, or the SAME since leaving the hospital? Better ACTION TAKEN: Patient indicated symptoms are better or same, no action required. Continue outreach. MEDICATIONS: Many patients have questions or concerns about their medications once they are home. Do you have any questions about taking your medications or which medication you should be on? No Do you need any medication refills at this time, including any of the medications you might take only when needed? No ACTION TAKEN: No action required For RNs or Pharmacy completing outreach ONLY, was a medication review completed? Yes SOCIAL: We would like to make sure you have what you need so that your basics needs are met - including your personal safety, food, housing and medications. Would you like to speak with a social work steam bone press tender to help give you support for any of these needs? No It can be normal to feel anxious or down during a time like this. Would you like to talk to a mental health professional about how you have been feeling? No ACTION TAKEN: No action taken DISCHARGE INTRUCTIONS: Your discharge instructions / After Visit Summary (AVS) are important in guiding you through the recovery process. Do you have any questions related to your discharge instructions? No Do you have all the necessary equipment and supplies at home? Yes ACTION TAKEN: No action required I would like to help you schedule a hospital follow-up virtual or telephone visit with your PCP. This is a great way for you to connect with your provider to ensure you have safely transitioned home. If you are agreeable, I will send your request to a transport coordinator who will contact and assist you with that appointment. This will give you an opportunity to ask any questions or address any concerns you may have with your PCP. Inform the patient that if they have any questions or concerns prior to that appointment, to call their PCP's office right away. ACTION TAKEN: Patient desires an appointment - Routed to [facility] [[id number]] for scheduling telehealth visit (telephonic, virtual visit, or Facetime) within 7 days of discharge with PCP care team. Indicate hospital follow-up appointment needed within 7 days in Provider/FYI box. End Outreach. Your doctor would like us to remind you of the recommendations regarding the coronavirus (Covid19) outbreak: ? Avoid public places as much as possible. ? Avoid close contact (within 6 feet) with others you don?t live with, especially if they are sick. ? Stay home if you are sick. ? Wash your hands regularly for at least 20 seconds with soap and water. ? Wear a cloth mask in public places to help reduce community spread. ? Do not go to your Doctor?s office unless instructed to do so. For any non-emergency symptoms, call your Doctor?s office to get instructions on how to manage (we might recommend a telephone or virtual visit). For emergency symptoms, proceed to Emergency Department as usual but inform them of cough and fever symptoms ADITI if present (or call on the way if possible). TCM Home Visit Referral Source of Stratification: [facility] Admission Status: Discharged Readmission Risk Score: 11 JESUS Score: 1 Program referral criteria met: Does not meet referral criteria Patient does not qualify for High Risk TCM Home Visit program due to: Does not meet referral criteria Patient does not quality for High Risk TCM Home Visit Program due to: Does not meet referral criteria Preferred contact number: NA Is patient staying somewhere other than the listed home address: No Dialysis Patient: No Adri Blair RNdocument control assistant [facility] 08-25-2021 History of Present illness Narrative POPULATION HEALTH NAVIGATION OUTREACH Action/FYI August 25, 2021 Called and scheduled patient on 09/03 Emelina Casillas MA Pt identified by name and : YES, via phone Outreach Outcome/Action Spoke to patient or caregiver: Patient scheduled Did you use a PCP flex slot to schedule this appointment? No Reason for Outreach Community Monitoring Pool Payer: Payor: [facility] / Plan: [facility] / Product Type: HMO / Care Gap Reviewed:: Follow-up appointment Reminder: Reminder note to check Health Maintenance for items below Health Maintenance items due: COVID-19 VACCINE(1) Never done BP CONTROLLED (<130/80) Never done SHINGRIX VACCINE(1 of 2) Never done Message Sent to Practice: No Navigation Signature: Emelina Casillas MA August 25, 2021 4:10 PM TRANSITIONAL CARE MANAGEMENT (TCM) COMMUNITY MONITORING PROGRAM Provider Action/FYI: spoke with patient states he is staying at [facility] for a month and is employed denies any new symptoms since discharge pt does not have f/u appt scheduled with pcp at this time would like to schedule will forward to navigator pool for scheduling TCM through 09/05/2108/27 counselor f/u listed on AVS SUMMARY: Pt discharged from [facility] on 08/22 Admitted for: Failure of outpatient psychiatric management Contact made with patient: Yes Hi my name is Adri Blair RN and I am calling from the [facility] on behalf of your PCP, Parviz Smith MD I understand you were recently in the hospital so I am calling to check in with you to ensure you are feeling well now that you're home. May I ask you a few questions related to your hospital stay and well-being? Yes Contact with patient post discharge, spoke to patient. Patient identified by name and . Do you feel your health is BETTER, WORSE, or the SAME since leaving the hospital? Better ACTION TAKEN: Patient indicated symptoms are better or same, no action required. Continue outreach. MEDICATIONS: Many patients have questions or concerns about their medications once they are home. Do you have any questions about taking your medications or which medication you should be on? No Do you need any medication refills at this time, including any of the medications you might take only when needed? No ACTION TAKEN: No action required For RNs or Pharmacy completing outreach ONLY, was a medication review completed? Yes SOCIAL: We would like to make sure you have what you need so that your basics needs are met - including your personal safety, food, housing and medications. Would you like to speak with a social work steam bone press tender to help give you support for any of these needs? No It can be normal to feel anxious or down during a time like this. Would you like to talk to a mental health professional about how you have been feeling? No ACTION TAKEN: No action taken DISCHARGE INTRUCTIONS: Your discharge instructions / After Visit Summary (AVS) are important in guiding you through the recovery process. Do you have any questions related to your discharge instructions? No Do you have all the necessary equipment and supplies at home? Yes ACTION TAKEN: No action required I would like to help you schedule a hospital follow-up virtual or telephone visit with your PCP. This is a great way for you to connect with your provider to ensure you have safely transitioned home. If you are agreeable, I will send your request to a transport coordinator who will contact and assist you with that appointment. This will give you an opportunity to ask any questions or address any concerns you may have with your PCP. Inform the patient that if they have any questions or concerns prior to that appointment, to call their PCP's office right away. ACTION TAKEN: Patient desires an appointment - Routed to [facility] [[id number]] for scheduling telehealth visit (telephonic, virtual visit, or Facetime) within 7 days of discharge with PCP care team. Indicate hospital follow-up appointment needed within 7 days in Provider/FYI box. End Outreach. Your doctor would like us to remind you of the recommendations regarding the coronavirus (Covid19) outbreak: Avoid public places as much as possible. Avoid close contact (within 6 feet) with others you don t live with, especially if they are sick. Stay home if you are sick. Wash your hands regularly for at least 20 seconds with soap and water. Wear a cloth mask in public places to help reduce community spread. Do not go to your Doctor s office unless instructed to do so. For any non-emergency symptoms, call your Doctor s office to get instructions on how to manage (we might recommend a telephone or virtual visit). For emergency symptoms, proceed to Emergency Department as usual but inform them of cough and fever symptoms ADITI if present (or call on the way if possible). TCM Home Visit Referral Source of Stratification: [facility] Admission Status: Discharged Readmission Risk Score: 11 JESUS Score: 1 Program referral criteria met: Does not meet referral criteria Patient does not qualify for High Risk TCM Home Visit program due to: Does not meet referral criteria Patient does not quality for High Risk TCM Home Visit Program due to: Does not meet referral criteria Preferred contact number: NA Is patient staying somewhere other than the listed home address: No Dialysis Patient: No Adri Blair RNdocument control assistant TRANSITIONAL CARE MANAGEMENT (TCM) COMMUNITY MONITORING PROGRAM Provider Action/FYI: attempted to reach patient for initial hospital d/c. No answer. Left voice mail message that we will attempt to reach patient tomorrow. pt does not have f/u appt scheduled with pcp at this time 08/27 counselor f/u SUMMARY: Pt discharged from [facility] on 08/22 Admitted for: Failure of outpatient psychiatric management Contact made with patient: No - next outreach attempt will be on next business day Outreach ended TCM Home Visit Referral Source of Stratification: [facility] [address] Admission Status: Discharged Readmission Risk Score: 11 JESUS Score: 1 Program referral criteria met: Does not meet referral criteria Patient does not qualify for High Risk TCM Home Visit program due to: Does not meet referral criteria Patient does not quality for High Risk TCM Home Visit Program due to: Does not meet referral criteria Preferred contact number: NA Is patient staying somewhere other than the listed home address: No Dialysis Patient: No Adri Blair RNdocument control assistant documented in this encounter [facility] 08-25-2021 Note HNO ID: [id number] Author: Adri Blair RN Service: ? Author Type: Registered Nurse Type: Progress Notes Filed: 08/25/2021 3:50 PM Note Text: TRANSITIONAL CARE MANAGEMENT (TCM) COMMUNITY MONITORING PROGRAM Provider Action/FYI: attempted to reach patient for initial hospital d/c. No answer. Left voice mail message that we will attempt to reach patient tomorrow. pt does not have f/u appt scheduled with pcp at this time 08/27 counselor f/u SUMMARY: Pt discharged from [facility] on 08/22 Admitted for: Failure of outpatient psychiatric management Contact made with patient: No - next outreach attempt will be on next business day Outreach ended TCM Home Visit Referral Source of Stratification: [facility] [address] Admission Status: Discharged Readmission Risk Score: 11 JESUS Score: 1 Program referral criteria met: Does not meet referral criteria Patient does not qualify for High Risk TCM Home Visit program due to: Does not meet referral criteria Patient does not quality for High Risk TCM Home Visit Program due to: Does not meet referral criteria Preferred contact number: NA Is patient staying somewhere other than the listed home address: No Dialysis Patient: No Adri Blair RNdocument control assistant [facility] 08-25-2021 Note Patient Outreach ([facility]) BENJAMIN GUTIERREZ ([id number]) 1965 M Date Time Provider Department 08/25/21 ADRI BLAIR During your visit today, we recorded the following information about you: Adri Blair RN 08/25/2021 3:50 PM Signed TRANSITIONAL CARE MANAGEMENT (TCM) COMMUNITY MONITORING PROGRAM Provider Action/FYI: attempted to reach patient for initial hospital d/c. No answer. Left voice mail message that we will attempt to reach patient tomorrow. pt does not have f/u appt scheduled with pcp at this time 08/27 counselor f/u SUMMARY: Pt discharged from [facility] on 08/22 Admitted for: Failure of outpatient psychiatric management Contact made with patient: No - next outreach attempt will be on next day Outreach ended TCM Home Visit Referral Source of Stratification: [facility] Admission Status: Discharged Readmission Risk Score: 11 JESUS Score: 1 Program referral criteria met: Does not meet referral criteria Patient does not qualify for High Risk TCM Home Visit program due to: Does not meet referral criteria Patient does not quality for High Risk TCM Home Visit Program due to: Does not meet referral criteria Preferred contact number: NA Is patient staying somewhere other than the listed home address: No Dialysis Patient: No Adri Blair RNdocument control assistant Adri Blair RN 08/25/2021 3:50 PM Signed TRANSITIONAL CARE MANAGEMENT (TCM) COMMUNITY MONITORING PROGRAM Provider Action/FYI: spoke with patient states he is staying at [facility] for a month and is employed denies any new symptoms since discharge pt does not have f/u appt scheduled with pcp at this time would like to schedule will forward to navigator pool for scheduling TCM through 09/05/2108/27 counselor f/u listed on AVS SUMMARY: Pt discharged from [facility] on 08/22 Admitted for: Failure of outpatient psychiatric management ? Contact made with patient: Yes Hi my name is Adri Blair RN and I am calling from the [facility] on behalf of your PCP, Parviz Smith MD I understand you were recently in the hospital so I am calling to check in with you to ensure you are feeling well now that you're home. May I ask you a few questions related to your hospital stay and well-being? Yes Contact with patient post discharge, spoke to patient. Patient identified by name and . Do you feel your health is BETTER, WORSE, or the SAME since leaving the hospital? Better ACTION TAKEN: Patient indicated symptoms are better or same, no action required. Continue outreach. MEDICATIONS: Many patients have questions or concerns about their medications once they are home. Do you have any questions about taking your medications or which medication you should be on? No Do you need any medication refills at this time, including any of the medications you might take only when needed? No ACTION TAKEN: No action required For RNs or Pharmacy completing outreach ONLY, was a medication review completed? Yes SOCIAL: We would like to make sure you have what you need so that your basics needs are met - including your personal safety, food, housing and medications. Would you like to speak with a social work steam bone press tender to help give you support for any of these needs? No It can be normal to feel anxious or down during a time like this. Would you like to talk to a mental health professional about how you have been feeling? No ACTION TAKEN: No action taken DISCHARGE INTRUCTIONS: Your discharge instructions / After Visit Summary (AVS) are important in guiding you through the recovery process. Do you have any questions related to your discharge instructions? No Do you have all the necessary equipment and supplies at home? Yes ACTION TAKEN: No action required I would like to help you schedule a hospital follow-up virtual or telephone visit with your PCP. This is a great way for you to connect with your provider to ensure you have safely transitioned home. If you are agreeable, I will send your request to a transport coordinator who will contact and assist you with that appointment. This will give you an opportunity to ask any questions or address any concerns you may have with your PCP. Inform the patient that if they have any questions or concerns prior to that appointment, to call their PCP's office right away. ACTION TAKEN: Patient desires an appointment - Routed to [facility] [[id number]] for scheduling telehealth visit (telephonic, virtual visit, or Facetime) within 7 days of discharge with PCP care team. Indicate hospital follow-up appointment needed within 7 days in Provider/FYI box. End Outreach. Your doctor would like us to remind you of the recommendations regarding the coronavirus (Covid19) outbreak: ? Avoid public places as much as possible (more content not included)... [facility] 08-22-2021 Note HNO ID: [id number] Author: Jaden Gaytan RN Service: Nursing Author Type: Registered Nurse Type: Plan of Care Filed: 08/22/2021 11:33 AM Note Text: Attestation signed by Nikhil Morgan DO at 08/22/2021 2:16 PM Nikhil Morgan DO BEHAVIORAL HEALTH INPATIENT INTERDISCIPLINARY TREATMENT PLAN UPDATE DATE INITIATED: 08/22/2021 11:33 AM Patient's Goal of Treatment: feel better Active Hospital Problems *Depression Criteria for Discharge: Elimination/reduction of presenting behavior: Suicidal ideation, risk of harm to self Estimated length of stay: 4 days Interdisciplinary Treatment Plan Date Initiated: 08/18/21 Time Initiated: 205 Patient unable to participate due to : Other: See Comment (pt declined) Other Participants: Other: See Comment (none) Strengths/Assets: Articulates thoughts and feelings clearly;Receiving outpatient treatment Limitations: Lack of family support;Unstable housing;Lack of social support Precautions indicated: Suicide Individualized problems: Mood disorder;Risk of harm to self Problem - Discharge Needs Date Initiated: 08/18/21 Time Initiated: 207 Discharge Needs: Patient/Family will participate in the development of the Discharge Aftercare Plan;Resolve acute symptoms through medication management;Link/relink to community supports;Encourage patient to utilize appropriate coping skills Interventions - Nursing: Administer medications as indicated and monitor patient for effect daily;Encourage patient participation in milieu activities daily and as needed;Provide a quiet, restful environment to promote sleep/rest daily and as needed;Monitor nutritional intake daily;Assess for escalating behavior and utilize de-escalation skills as needed;Assist with developing positive coping behaviors daily and as needed;Assess for signs of escalating emotions and help identify ways to appropriately express feelings as needed;Use therapeutic communication skills to develop patient trust and a nurse-patient relationship daily and as needed;Provide non-judgmental supportive, empathetic and comprehensive trauma informed care daily and as needed;Provide education to the patient and/or family about the disease process and management as appropriate daily and as needed;Obtain baseline level of functioning on admission Interventions - Therapy: Develop and discuss leisure education plan;Help patient to identify people, places and things that support recovery and stabilization of mental health;Promote ongoing practice of effective coping strategies daily and as needed Problem - Mood Disorder As evidenced by: Suicidal Thoughts Date Initiated: 08/18/21 Time Initiated: 209 Mood Disorder: Depression Short Term Goals: Patient will report decrease in suicidal ideation/self-harm behavior;Patient will identify alternative coping skills to deal with symptoms;Patient will comply with medication and treatment;Patient will maintain adequate PO intake and consume this percentage of meals;Patient will report decrease in identified symptoms;Patient will demostrate self-care through bathing by day 2;Patient will learn and implement 2 calming skills to aid in symptom reduction by day 5;Patient participates in 2 daily activities by day 3 Target Date Short Term Goals: 08/22/21 Progress Towards Short Term Goals: Progressing Nut Roaster Goals: Patient will demonstrate optimal level of functioning;Patient/support system will verbalize intent to comply with medication and treatment after discharge;Patient expresses examples of optimism and hope for the future Target Date Nut Roaster Goals: 08/25/21 Progress Towards Assisted Goals: Progressing Interventions - Nursing: Obtain baseline level of functioning on admission;Administer medications as indicated and monitor patient for effect daily;Provide education to the patient and/or family about the disease process and management as appropriate daily and as needed;Provide non-judgmental supportive, empathetic and comprehensive trauma informed care daily and as needed;Use therapeutic communication skills to develop patient trust and a nurse-patient relationship daily and as needed;Assess for signs of escalating emotions and help identify ways to appropriately express feelings as needed;Assist with developing positive coping behaviors daily and as needed;Assess for escalating behavior and utilize de-escalation skills as needed;Monitor nutritional intake daily;Provide a quiet, restful environment to promote sleep/rest daily and as needed;Encourage patient participation in milieu activities daily and as needed Interventions - Therapy: Assist patient in accessing and recognizing positive experiences;Educate on and promote grounding techniques and hea (more content not included)... [facility] 08-22-2021 Note HNO ID: [id number] Author: Beverly Amaya PA-C Service: Behavioral Health Author Type: Physician Human Resource Management Instructor Type: Progress Notes Filed: 08/22/2021 11:20 AM Note Text: BRUCE Note Patient will be discharged today. The following medications are e-scripted to [facility]. Medication List START taking these medications aspirin 81 mg chewable tablet Take 1 tablet by mouth once daily. Start taking on: August 23, 2021 Replaces: aspirin, enteric coated 81 mg EC tablet atorvastatin 20 mg tablet Commonly known as: LIPITOR Take 1 tablet by mouth daily at bedtime. benztropine 1 mg tablet Commonly known as: COGENTIN Take 1 tablet by mouth twice daily. mupirocin 2 % ointment Commonly known as: BACTROBAN Apply to affected area three times daily for 5 days. nicotine 21 mg/24 hr Commonly known as: NICODERM Apply 1 Patch as directed once daily. Start taking on: August 23, 2021 * risperiDONE 2 mg tablet Commonly known as: RisperDAL Take 1 tablet by mouth daily at bedtime. * risperiDONE 1 mg tablet Commonly known as: RisperDAL Take 1 tablet by mouth once daily. Start taking on: August 23, 2021 traZODone 100 mg tablet Commonly known as: DESYREL Take 1 tablet by mouth daily at bedtime. * This list has 2 medication(s) that are the same as other medications prescribed for you. Read the directions carefully, and ask your doctor or other care provider to review them with you. CHANGE how you take these medications sertraline 100 mg tablet Commonly known as: ZOLOFT Take 1 tablet by mouth once daily. Start taking on: August 23, 2021 What changed: ? medication strength ? how much to take ? Another medication with the same name was removed. Continue taking this medication, and follow the directions you see here. CONTINUE taking these medications atenolol 25 mg tablet Commonly known as: TENORMIN Take 1 tablet by mouth once daily. hydroCHLOROthiazide 12.5 mg tablet Commonly known as: HYDRODIURIL, ESIDRIX Take 1 tablet by mouth once daily. STOP taking these medications aspirin, enteric coated 81 mg EC tablet Commonly known as: ECOTRIN LOW STRENGTH Replaced by: aspirin 81 mg chewable tablet lisinopril 10 mg tablet Commonly known as: ZESTRIL, PRINIVIL meloxicam 7.5 mg tablet Commonly known as: MOBIC Where to Get Your Medications These medications were sent to [facility] [address] [place] [address] Hours: 9:00am-5:30pm, Wednesday-Wednesday ? aspirin 81 mg chewable tablet ? atenolol 25 mg tablet ? atorvastatin 20 mg tablet ? benztropine 1 mg tablet ? hydroCHLOROthiazide 12.5 mg tablet ? mupirocin 2 % ointment ? nicotine 21 mg/24 hr ? risperiDONE 1 mg tablet ? risperiDONE 2 mg tablet ? sertraline 100 mg tablet ? traZODone 100 mg tablet Beverly Amaya PA-C August 22, 2021 11:20 AM [facility] 08-21-2021 Note HNO ID: [id number] Author: Nikhil Morgan DO Service: Psychiatry Author Type: Physician Type: Progress Notes Filed: 08/21/2021 8:37 AM Note Text: PROGRESS NOTE BEHAVIORAL HEALTH SERVICE DATE: 08/21/2021 SERVICE TIME: 9:16 AM The Interdisciplinary team met and reviewed treatment goals and discharge planning. Subjective Seen on am rounds. In gown. Less head tremor, now on cogentin. reviewed admitting history and legal issues. Reviewed hosuing concerns and work- No suicidal ideations Marital discord- restraining order. Objective PHYSICAL EXAM: BP 135/73 Pulse 92 Temp 36.5 ?C (97.7 ?F) Resp 20 Ht 180.3 cm (5' 11) Wt 93 kg (205 lb) SpO2 95% BMI 28.59 kg/m? MENTAL STATUS EXAMINATION: Appearance: In hospital clothing ; +non-intention tremor of the head and hands; lack of facial expression; staring appearance with little blink Behavior: Engaged readily. Psychomotor: slowed Cognition Level of Consciousness: Awake and alert. No fluctuation in wakefulness. Orientation: Person, Place, Time and Situation Memory: Mildly Impaired Attention/Concentration: Good Fund of Knowledge: fair Mood: Depressed Affect: Flat . Speech/Language: soft; hesitant Thought Form: Goal-directed. No loosening of associations. Thought Content: No delusions noted or endorsed. Perceptual Disturbances: Did not appear to respond to auditory stimuli. Safety: Suicidal Ideations: Thoughts of suicide, Does no confirm intent or plan. Homicidal Ideations: No homicidal ideation, intent or plan. Insight: Poor Judgment: poor NEW PROBLEMS ON UNIT SINCE LAST ENCOUNTER: None Current Facility-Administered Medications Medication Dose Route Frequency - nicotine polacrilex 2 mg gum (NICORETTE) 2 mg ORAL q 2 H PRN - haloperidol 5 mg tab(s) (HALDOL) 5 mg ORAL q 6 H PRN Or - haloperidol lactate 5 mg short-acting injection (HALDOL) 5 mg INTRAMUSCULAR q 6 H PRN - hydrOXYzine HCl 50 mg tab(s) (ATARAX) 50 mg ORAL q 6 H PRN - acetaminophen 650 mg tab(s) (TYLENOL) 650 mg ORAL q 6 H PRN - magnesium hydroxide 400 mg/5 mL 30 mL (MOM) 30 mL ORAL DAILY PRN - aluminum-magnesium hydroxide-simethicone 200-200-20 mg/5 mL 30 mL (MAALOX,MYLANTA,MAG-AL PLUS) 30 mL ORAL q 4 H PRN - atenolol 25 mg tab(s) (TENORMIN) 25 mg ORAL DAILY - hydroCHLOROthiazide 12.5 mg tab(s) (HYDRODIURIL, ESIDRIX) 12.5 mg ORAL DAILY - sertraline 100 mg tab(s) (ZOLOFT) 100 mg ORAL DAILY - benztropine 1 mg tab(s) (COGENTIN) 1 mg ORAL BID - nicotine 21 mg/24 hr 1 Patch (NICODERM) 1 Patch TRANSDERMAL DAILY - nicotine -- REMOVE patch OTHER DAILY - nicotine - verify patch OTHER q 8 H - traZODone 100 mg tab(s) (DESYREL) 100 mg ORAL AT BEDTIME - aspirin 81 mg chewable tab(s) 81 mg ORAL DAILY - atorvastatin 20 mg tab(s) (LIPITOR) 20 mg ORAL AT BEDTIME - mupirocin 2 % ointment (BACTROBAN) TOPICAL TID - risperiDONE 2 mg tab(s) (RisperDAL) 2 mg ORAL AT BEDTIME - risperiDONE 1 mg tab(s) (RisperDAL) 1 mg ORAL DAILY DATA: Diagnostic tests reviewed for today's visit: Most recent labs and imaging results. Assessment/Plan DIAGNOSIS: 1. PRIMARY: Mood Disorder Major Depressive Disorder, Recurrent, Severe Without Psychotic Symptoms consider features of Parkinson's Disorder and depression ?2 ptsd 3 Malingering 4 eps. / tremors 5 Antisocial traits GAF:20-11 Some danger of hurting self INFORMED CONSENT: Yes, completed with the Patient. Discussed the risks, benefits and alternatives to the medication(s) recommended. Consent was given. ? RISK ASSESSMENT: Suicide: Moderate Homicide: Low Deliberate Self-Harm: Moderate Aggression: Low Imminent Physical Self Impairment: High ? PLAN: Admit to inpatient unit. We will encourage patient to participate in therapeutic milieu activities. Patient will meet with social work for psychosocial assessment and discharge disposition planning. Medications: cogentin 1 mg twice a day (eps/tremors) Risperidone 1 am and 2mg pm (insurance decanoate shot not covered) Sertraline 100 mg daily Safety Precautions: per unit protocol Medical consult: Dr. Hector Overnight pulse ox pending. R/o apnea. Recommend outpt sleep study Tremors- chronic. Head and arms. Added cogentin this admit. Consider mysoline. INFORMED CONSENT: Yes, completed with the Patient. Discussed the risks, benefits and alternatives to the medication(s) recommended. Consent was given. DISCHARGE PLANNING: Discharge by the end of the week. referal to anger management Needs linked back to [facility]. 211 / shelters. - [facility] Legal issues- not allowed to leave [employer] invega decanoate shot not covered by insurance. SIGNATURE: Nikhil Morgan DO PATIENT NAME: Benjamin Gutierrez DATE: August 21, 2021 TIME: 9:15 AM [facility] 08-20-2021 Note HNO ID: [id number] Author: Tawny Bhardwaj MD Service: ? Author Type: Physician Type: Progress Notes Filed: 08/21/2021 9:31 AM Note Text: INTERNAL MEDICINE PROGRESS NOTE SERVICE DATE: 08/20/2021 SERVICE TIME: ADMITTING PHYSICIAN: Karolina Harrison MD Subjective CHIEF COMPLAINT: Not in distress Current Facility-Administered Medications Medication Dose Route Frequency - risperiDONE 2 mg tab(s) (RisperDAL) 2 mg ORAL AT BEDTIME - risperiDONE 1 mg tab(s) (RisperDAL) 1 mg ORAL DAILY - nicotine polacrilex 2 mg gum (NICORETTE) 2 mg ORAL q 2 H PRN - haloperidol 5 mg tab(s) (HALDOL) 5 mg ORAL q 6 H PRN Or - haloperidol lactate 5 mg short-acting injection (HALDOL) 5 mg INTRAMUSCULAR q 6 H PRN - hydrOXYzine HCl 50 mg tab(s) (ATARAX) 50 mg ORAL q 6 H PRN - acetaminophen 650 mg tab(s) (TYLENOL) 650 mg ORAL q 6 H PRN - magnesium hydroxide 400 mg/5 mL 30 mL (MOM) 30 mL ORAL DAILY PRN - aluminum-magnesium hydroxide-simethicone 200-200-20 mg/5 mL 30 mL (MAALOX,MYLANTA,MAG-AL PLUS) 30 mL ORAL q 4 H PRN - atenolol 25 mg tab(s) (TENORMIN) 25 mg ORAL DAILY - hydroCHLOROthiazide 12.5 mg tab(s) (HYDRODIURIL, ESIDRIX) 12.5 mg ORAL DAILY - sertraline 100 mg tab(s) (ZOLOFT) 100 mg ORAL DAILY - benztropine 1 mg tab(s) (COGENTIN) 1 mg ORAL BID - nicotine 21 mg/24 hr 1 Patch (NICODERM) 1 Patch TRANSDERMAL DAILY - nicotine -- REMOVE patch OTHER DAILY - nicotine - verify patch OTHER q 8 H - traZODone 100 mg tab(s) (DESYREL) 100 mg ORAL AT BEDTIME - aspirin 81 mg chewable tab(s) 81 mg ORAL DAILY - atorvastatin 20 mg tab(s) (LIPITOR) 20 mg ORAL AT BEDTIME - mupirocin 2 % ointment (BACTROBAN) TOPICAL TID INTERVAL HISTORY OF PRESENT ILLNESS: As above Objective PHYSICAL EXAM: Patient Vitals for the past 24 hrs: BP Temp Temp src Pulse Resp 08/20/21 0800 91/65 36.7 ?C (98.1 ?F) Temporal 82 20 Body mass index is 28.59 kg/m?. GENERAL: alert, no distress, cooperative, LUNGS: Lungs clear to auscultation. CARDIAC: S1 and S2; + gallops ABDOMEN: Abdomen soft, non-tender, BS normal EXTREMETIES: no edema LUE - forearm superficial laceration, no infection NEURO: Alert, oriented X 3, Follows commands PULSES: palpable DATA: Diagnostic tests reviewed for today's visit: Results for BENJAMIN GUTIERREZ ( ) as of 08/20/2021 11:42 Ref. Range 08/18/2021 06:50 Cholesterol, Total Latest Ref Range: <200 mg/dL 229 (H) Triglyceride Latest Ref Range: <150 mg/dL 338 (H) Fasting Time Latest Units: hrs 8hrs HDL Cholesterol Latest Ref Range: >39 mg/dL 29 (L) LDL Cholesterol Latest Ref Range: <100 mg/dL 132 (H) VLDL Cholesterol Latest Ref Range: <30 mg/dL 68 (H) TC:HDL Ratio Latest Ref Range: <5.10 7.90 (H) LDL:HDL Ratio Latest Ref Range: <2.54 4.55 (H) Non HDL Cholesterol Latest Ref Range: <130 mg/dL 200 (H) Assessment/Plan 1. HTN- C/w HCTZ and BB. Not on JENNA per records 2. CAD- resume aspirin, c/w BB. Started low dose statin - LDL 132 3. Dyslipidemia- on statin 4. Superficial laceration to the dorsum of his left arm - wound care 5. Depression- management by psychiatry Medication and Non-Pharmacologic VTE Prophylaxis/Anticoagulants Anticoagulant AND Antiplatelet Medications (From admission, onward) Start Dose Route Frequency Last Action Ordered Stop 08/18/21 1430 aspirin 81 mg chewable tab(s) 81 mg ORAL DAILY Given, 08/20 0819 08/18/21 1408 -- 08/18/21 0600 activity - mobilize patient (me,tn) VTE Prophylaxis: VTE prophylaxis appropriate SIGNATURE: Tawny Bhardwaj MD PATIENT NAME: Benjamin Gutierrez DATE: August 20, 2021 TIME: 11:43 AM [facility] 08-20-2021 Note HNO ID: [id number] Author: Nikhil Morgan DO Service: Psychiatry Author Type: Physician Type: Progress Notes Filed: 08/20/2021 8:42 AM Note Text: PROGRESS NOTE BEHAVIORAL HEALTH SERVICE DATE: 08/20/2021 SERVICE TIME: 9:16 AM The Interdisciplinary team met and reviewed treatment goals and discharge planning. Subjective Seen on am rounds. In gown. Less head tremor, now on cogentin. reviewed admitting history and legal issues. Reviewed hosuing concerns and work- last there a few weeks back. [facility] history (detention) Marital discord- restraining order. Objective PHYSICAL EXAM: BP 91/65 Pulse 82 Temp 36.7 ?C (98.1 ?F) (Temporal) Resp 20 Ht 180.3 cm (5' 11) Wt 93 kg (205 lb) SpO2 97% BMI 28.59 kg/m? MENTAL STATUS EXAMINATION: Appearance: In hospital clothing ; +non-intention tremor of the head and hands; lack of facial expression; staring appearance with little blink Behavior: Engaged readily. Psychomotor: slowed Cognition Level of Consciousness: Awake and alert. No fluctuation in wakefulness. Orientation: Person, Place, Time and Situation Memory: Mildly Impaired Attention/Concentration: Good Fund of Knowledge: not fully assessed Mood: Depressed Affect: Flat . Speech/Language: soft; hesitant Thought Form: Goal-directed. No loosening of associations. Thought Content: No delusions noted or endorsed. Perceptual Disturbances: Did not appear to respond to auditory stimuli. Safety: Suicidal Ideations: Thoughts of suicide, Does no confirm intent or plan. Homicidal Ideations: No homicidal ideation, intent or plan. Insight: Poor Judgment: poor NEW PROBLEMS ON UNIT SINCE LAST ENCOUNTER: None Current Facility-Administered Medications Medication Dose Route Frequency - nicotine polacrilex 2 mg gum (NICORETTE) 2 mg ORAL q 2 H PRN - haloperidol 5 mg tab(s) (HALDOL) 5 mg ORAL q 6 H PRN Or - haloperidol lactate 5 mg short-acting injection (HALDOL) 5 mg INTRAMUSCULAR q 6 H PRN - hydrOXYzine HCl 50 mg tab(s) (ATARAX) 50 mg ORAL q 6 H PRN - acetaminophen 650 mg tab(s) (TYLENOL) 650 mg ORAL q 6 H PRN - magnesium hydroxide 400 mg/5 mL 30 mL (MOM) 30 mL ORAL DAILY PRN - aluminum-magnesium hydroxide-simethicone 200-200-20 mg/5 mL 30 mL (MAALOX,MYLANTA,MAG-AL PLUS) 30 mL ORAL q 4 H PRN - atenolol 25 mg tab(s) (TENORMIN) 25 mg ORAL DAILY - hydroCHLOROthiazide 12.5 mg tab(s) (HYDRODIURIL, ESIDRIX) 12.5 mg ORAL DAILY - sertraline 100 mg tab(s) (ZOLOFT) 100 mg ORAL DAILY - benztropine 1 mg tab(s) (COGENTIN) 1 mg ORAL BID - nicotine 21 mg/24 hr 1 Patch (NICODERM) 1 Patch TRANSDERMAL DAILY - nicotine -- REMOVE patch OTHER DAILY - nicotine - verify patch OTHER q 8 H - traZODone 100 mg tab(s) (DESYREL) 100 mg ORAL AT BEDTIME - aspirin 81 mg chewable tab(s) 81 mg ORAL DAILY - atorvastatin 20 mg tab(s) (LIPITOR) 20 mg ORAL AT BEDTIME - mupirocin 2 % ointment (BACTROBAN) TOPICAL TID - risperiDONE 2 mg tab(s) (RisperDAL) 2 mg ORAL AT BEDTIME - risperiDONE 1 mg tab(s) (RisperDAL) 1 mg ORAL DAILY DATA: Diagnostic tests reviewed for today's visit: Most recent labs and imaging results. Assessment/Plan DIAGNOSIS: 1. PRIMARY: Mood Disorder Major Depressive Disorder, Recurrent, Severe Without Psychotic Symptoms consider features of Parkinson's Disorder and depression ?2 ptsd 3 Malingering 4 eps. / tremors 5 Antisocial traits GAF:20-11 Some danger of hurting self INFORMED CONSENT: Yes, completed with the Patient. Discussed the risks, benefits and alternatives to the medication(s) recommended. Consent was given. ? RISK ASSESSMENT: Suicide: Moderate Homicide: Low Deliberate Self-Harm: Moderate Aggression: Low Imminent Physical Self Impairment: High ? PLAN: Admit to inpatient unit. We will encourage patient to participate in therapeutic milieu activities. Patient will meet with social work for psychosocial assessment and discharge disposition planning. Medications: cogentin 1 mg twice a day (eps/tremors) Risperidone 1 am and 2mg pm (insurance decanoate shot not covered) Sertraline 100 mg daily Safety Precautions: per unit protocol Medical consult: Dr. Hector Overnight pulse ox pending. R/o apnea. Recommend outpt sleep study Tremors- chronic. Head and arms. Added cogentin this admit. Consider mysoline. INFORMED CONSENT: Yes, completed with the Patient. Discussed the risks, benefits and alternatives to the medication(s) recommended. Consent was given. DISCHARGE PLANNING: Discharge by the end of the week. referal to anger management Needs linked back to [facility]. 211 / shelters. - [facility] decanoate shot not covered by insurance. SIGNATURE: Nikhil Morgan DO PATIENT NAME: Benjamin Gutierrez DATE: August 20, 2021 TIME: 9:15 AM [facility] 08-19-2021 Note HNO ID: [id number] Author: Nikhil Morgan DO Service: Psychiatry Author Type: Physician Type: Progress Notes Filed: 08/19/2021 9:27 AM Note Text: PROGRESS NOTE BEHAVIORAL HEALTH SERVICE DATE: 08/19/2021 SERVICE TIME: 9:16 AM The Interdisciplinary team met and reviewed treatment goals and discharge planning. Subjective Seen on am rounds. In gown. Still with head tremor. reviewed admitting history and legal issues. Reviewed hosuing concerns and work- last there a few weeks back. Marital discord- restraining order. Objective PHYSICAL EXAM: BP 113/78 Pulse 94 Temp 36.4 ?C (97.5 ?F) (Oral) Resp 16 Ht 180.3 cm (5' 11) Wt 93 kg (205 lb) SpO2 97% BMI 28.59 kg/m? MENTAL STATUS EXAMINATION: Appearance: In hospital clothing ; +non-intention tremor of the head and hands; lack of facial expression; staring appearance with little blink Behavior: Engaged readily. Psychomotor: slowed Cognition Level of Consciousness: Awake and alert. No fluctuation in wakefulness. Orientation: Person, Place, Time and Situation Memory: Mildly Impaired Attention/Concentration: Good Fund of Knowledge: not fully assessed Mood: Depressed Affect: Flat . Speech/Language: soft; hesitant Thought Form: Goal-directed. No loosening of associations. Thought Content: No delusions noted or endorsed. Perceptual Disturbances: Did not appear to respond to auditory stimuli. Safety: Suicidal Ideations: Thoughts of suicide, Does no confirm intent or plan. Homicidal Ideations: No homicidal ideation, intent or plan. Insight: Poor Judgment: poor NEW PROBLEMS ON UNIT SINCE LAST ENCOUNTER: None Current Facility-Administered Medications Medication Dose Route Frequency - nicotine polacrilex 2 mg gum (NICORETTE) 2 mg ORAL q 2 H PRN - haloperidol 5 mg tab(s) (HALDOL) 5 mg ORAL q 6 H PRN Or - haloperidol lactate 5 mg short-acting injection (HALDOL) 5 mg INTRAMUSCULAR q 6 H PRN - hydrOXYzine HCl 50 mg tab(s) (ATARAX) 50 mg ORAL q 6 H PRN - acetaminophen 650 mg tab(s) (TYLENOL) 650 mg ORAL q 6 H PRN - magnesium hydroxide 400 mg/5 mL 30 mL (MOM) 30 mL ORAL DAILY PRN - aluminum-magnesium hydroxide-simethicone 200-200-20 mg/5 mL 30 mL (MAALOX,MYLANTA,MAG-AL PLUS) 30 mL ORAL q 4 H PRN - atenolol 25 mg tab(s) (TENORMIN) 25 mg ORAL DAILY - hydroCHLOROthiazide 12.5 mg tab(s) (HYDRODIURIL, ESIDRIX) 12.5 mg ORAL DAILY - sertraline 100 mg tab(s) (ZOLOFT) 100 mg ORAL DAILY - benztropine 1 mg tab(s) (COGENTIN) 1 mg ORAL BID - risperiDONE 1 mg tab(s) (RisperDAL) 1 mg ORAL DAILY - risperiDONE 2 mg tab(s) (RisperDAL) 2 mg ORAL AT BEDTIME - nicotine 21 mg/24 hr 1 Patch (NICODERM) 1 Patch TRANSDERMAL DAILY - nicotine -- REMOVE patch OTHER DAILY - nicotine - verify patch OTHER q 8 H - traZODone 100 mg tab(s) (DESYREL) 100 mg ORAL AT BEDTIME - aspirin 81 mg chewable tab(s) 81 mg ORAL DAILY - atorvastatin 20 mg tab(s) (LIPITOR) 20 mg ORAL AT BEDTIME - mupirocin 2 % ointment (BACTROBAN) TOPICAL TID DATA: Diagnostic tests reviewed for today's visit: Most recent labs and imaging results. Assessment/Plan DIAGNOSIS: 1. PRIMARY: Mood Disorder Major Depressive Disorder, Recurrent, Severe Without Psychotic Symptoms consider features of Parkinson's Disorder and depression ?2 ptsd 3 Malingering 4 eps. / tremors 5 Antisocial traits GAF:20-11 Some danger of hurting self INFORMED CONSENT: Yes, completed with the Patient. Discussed the risks, benefits and alternatives to the medication(s) recommended. Consent was given. ? RISK ASSESSMENT: Suicide: Moderate Homicide: Low Deliberate Self-Harm: Moderate Aggression: Low Imminent Physical Self Impairment: High ? PLAN: Admit to inpatient unit. We will encourage patient to participate in therapeutic milieu activities. Patient will meet with social work for psychosocial assessment and discharge disposition planning. Medications: cogentin 1 mg twice a day (eps/tremors) Risperidone 1 mg daily ----> invega not covered. Consider trial of abilify po and decanoate shot. Try to avoid haldol for now due to eps/tremors. Sertraline 100 mg daily Safety Precautions: per unit protocol Medical consult: Dr. Hector Overnight pulse ox pending. R/o apnea. Recommend outpt sleep study Tremors- chronic. Head and arms. Added cogentin this admit. Consider mysoline. INFORMED CONSENT: Yes, completed with the Patient. Discussed the risks, benefits and alternatives to the medication(s) recommended. Consent was given. DISCHARGE PLANNING: Discharge by the end of the week. referal to anger management Needs linked back to [facility]. 211 / shelters. - [facility] decanoate shot not covered by insurance. SIGNATURE: Nikhil Morgan DO PATIENT NAME: Benjamin Gutierrez DATE: August 19, 2021 TIME: 9:15 AM [facility] 08-18-2021 Note HNO ID: [id number] Author: Nikhil Morgan DO Service: Psychiatry Author Type: Physician Type: Progress Notes Filed: 08/18/2021 8:59 AM Note Text: Behavioral Health Note 08/18/2021 [id number] Benjamin Gutierrez was seen and evaluated this am on rounds. Records and labs were reviewed. Case discussed in team. Potassium (mmol/L) Date Value 08/17/2021 3.9 01/14/2021 4.2 Sodium (mmol/L) Date Value 08/17/2021 136 01/14/2021 138 Magnesium (mg/dL) Date Value 01/14/2021 2.0 Creatinine (mg/dL) Date Value 08/17/2021 0.79 01/14/2021 0.77 BUN (mg/dL) Date Value 08/17/2021 12 01/14/2021 20 Glucose (mg/dL) Date Value 08/17/2021 92 01/14/2021 101 WBC (k/uL) Date Value 08/17/2021 6.79 RBC (m/uL) Date Value 08/17/2021 5.02 Hemoglobin (g/dL) Date Value 08/17/2021 15.3 Hematocrit (%) Date Value 08/17/2021 42.6 MCV (fL) Date Value 08/17/2021 84.9 MCH (pg) Date Value 08/17/2021 30.5 MCHC (g/dL) Date Value 08/17/2021 35.9 RDW-CV (%) Date Value 08/17/2021 11.8 Platelet Count (k/uL) Date Value 08/17/2021 193 MPV (fL) Date Value 08/17/2021 10.5 No results found for: TSH, FREET4 Benzodiazepines Urine Date Value Ref Range Status 08/17/2021 Negative Negative Final Comment: Cutoff threshold at 200 ng/mL. Cocaine Urine Date Value Ref Range Status 08/17/2021 Negative Negative Final Comment: Cutoff threshold at 300 ng/mL. Cannabinoids, Urine Date Value Ref Range Status 08/17/2021 Negative Negative Final Comment: Cutoff threshold at 50 ng/mL. Opiates Urine Date Value Ref Range Status 08/17/2021 Negative Negative Final Comment: Cutoff threshold at 300 ng/mL. Phencyclidine Urine Date Value Ref Range Status 08/17/2021 Negative Negative Final Comment: Cutoff threshold at 25 ng/mL. Ethanol, Urine Date Value Ref Range Status 08/17/2021 <11 <11 mg/dL Final PAST MEDICAL HISTORY Diagnosis Date - Alcoholism in remission (HCC) 08/30/2020 - Anxiety 2012 - Bilateral headaches 05/19/2017 - Chronic bilateral low back pain - COVID-19 03/19/2021 - Depression 2012 - GERD (gastroesophageal reflux disease) - HTN (hypertension) 10/24/2014 - Hyperlipemia - [place] (myocardial infarction) 2007 Per Pt report, 2008 presented to [facility] (never underwent cardiac cath) - Other insomnia 2012 - PTSD (post-traumatic stress disorder) 08/30/2020 - Thoracic ascending aortic aneurysm (HCC) 08/30/2020 echocardiogram - Tremors of nervous system 05/19/2017 hydroCHLOROthiazide (HYDRODIURIL, ESIDRIX) 12.5 mg tablet, Take 12.5 mg by mouth once daily., Disp: , Rfl: , 08/17/2021 at Unknown time sertraline (ZOLOFT) 50 mg tablet, Take 1 tablet by mouth once daily. (Patient taking differently: Take 100 mg by mouth once daily. ), Disp: 90 tablet, Rfl: 1, 08/17/2021 at Unknown time meloxicam (MOBIC) 7.5 mg tablet, 1 tablet by mouth PRN, Disp: , Rfl: , 08/17/2021 at Unknown time atenolol (TENORMIN) 25 mg tablet, Take 1 tablet by mouth once daily., Disp: , Rfl: ,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 cardiac cath) - Other insomnia 2012 - PTSD (post-traumatic stress disorder) 08/30/2020 - Thoracic ascending aortic aneurysm (HCC) 08/30/2020 echocardiogram - Tremors of nervous system 05/19/2017 PAST SURGICAL HISTORY Procedure Laterality Date - BACK SURGERY HX 2001 lumbar discectomy - REPAIR ROTATOR CUFF,ACUTE Right 2008 FAMILY HISTORY Problem Relation Age of Onset - Pneumonia Mother - Alzheimer's Disease Mother - Ischemic Heart Disease Father 49 of [place] at age 49 - Depression Brother - Tourette syndrome Brother - No Known Problems Maternal Grandmother - No Known Problems Maternal Grandfather - No Known Problems Paternal Grandmother - No Known Problems Paternal Grandfather Social History Tobacco Use - Smoking status: Former Smoker Packs/day: 2.50 Years: 2.00 Pack years: 5.00 Quit date: 03/01/1995 Years since quittin.9 - Smokeless tobacco: Current User Types: Chew Substance Use Topics - Alcohol use: Not Currently Comment: recovery since 1994 - Drug use: No ALLERGIES Allergen Reactions - Lorazepam Mental Status Change - Penicillins Swelling Current Outpatient Medications Medication Sig - meloxicam (MOBIC) 7.5 mg tablet 1 tablet by mouth PRN - aspirin, enteric coated (ECOTRIN LOW STRENGTH) 81 mg EC tablet Take 1 tablet by mouth once daily. - PARoxetine (PAXIL) 30 mg tablet Take 1 tablet by mouth once daily. No current facility-administered medications for this visit. Objective BP 168/100 Pulse 82 Resp 14 Wt 91.6 kg (202 lb) BMI 28.17 kg/m? Physical Exam Constitutional: Gen (more content not included)... [facility] 01-21-2021 Hospital Discharge instructions Sujit Rios, DO - 01/21/2021 Return if you have feelings to want to hurt yourself or anyone else. Follow-up with Dr. Walker tomorrow. Do not have to going to get blood work. Return if any problems or concerns. The following attachments cannot be sent through Care Everywhere.Depression: Self Care (Yoruba)Abrasions (Yoruba)documented in this encounter [facility] Work Phone: 09-17-2020 Note HNO ID: [id number] Author: Hakeem Talbert APRN.BOILER REPAIRMAN Service: ? Author Type: Nurse Practitioner Type: Progress Notes Filed: 09/17/2020 2:00 PM Note Text: [facility] V[facility] Department of Cardiovascular Medicine SECTION OF [facility] CARDIOLOGY Benjamin Gutierrez is a 55 year old male with a history of thoracic ascending aorta aneurysm, HTN, HLD, GERD, anxiety, depression, and PTSD who is here today for a hospital follow-up. HPI: The patient presented to [facility] on 08/29/2020 for evaluation of chest discomfort and an episode of unresponsiveness. He had been having episodes of chest pain intermittently for the past month that were exacerbated by mental stress and exertion. He had been under a tremendous amount of stress due to lack of health care coverage and inability to find a consistent job over the last several months. He had been intermittently doing jobs for 2 or so weeks at a time through a [employer] agency. The morning of admission he developed left upper chest pain that radiated down his left arm accompanied by diaphoresis, shortness of breath, and racing heart rate's. He states that he then collapsed (per his ex-fiance's account). Work-up on arrival revealed normal troponin T x 3 sets, and normal high-sensitivity AMINTA x 2 sets. EKG on arrival revealed normal sinus rhythm at 65 bpm with LVH and no acute injury pattern. CXR and head CT normal. He was treated with SL nitroglycerin, IV fluids, ASA 324 mg, and admitted to [facility]. Cardiology was consulted who recommended initiation of lisinopril for blood pressure management and echocardiogram to evaluate heart structure and function. Echo on 08/30/2020 revealed EF 58%, normal LV diastolic function, no significant valvular abnormalities, and dilated aorta (4.4 cm). He was evaluated by both psychology and neurology. He remained stable and was discharged home on 08/30/2020 with recommendation for outpatient nuclear stress testing. Today he reports no further chest discomfort. He has noticed an increase in exertional dyspnea that abates with rest, now occurring with mild to moderate efforts. He denies palpitations, near-syncope, orthopnea (1 pillow), PND, or edema. Relatively low energy levels. Home blood pressures not done. PAST MEDICAL HISTORY Diagnosis Date - Coronary artery disease - Hypertension No past surgical history on file. No family history on file. SOCIAL HISTORY: Social History Tobacco Use - Smoking status: Former Smoker - Smokeless tobacco: Never Used Substance Use Topics - Alcohol use: No - Drug use: No ALLERGIES: Penicillins CURRENT MEDICATIONS: Current Outpatient Medications Medication Sig - pravastatin (PRAVACHOL) 20 mg tablet Take 1 tablet by mouth once daily. - lisinopril (ZESTRIL, PRINIVIL) 20 mg tablet Take 1 tablet by mouth once daily. - diclofenac potassium (CATAFLAM) 50 mg tablet Take 1 tablet by mouth three times daily. - temazepam (RESTORIL) 15 mg Take 1 capsule by mouth at bedtime as needed for up to 30 days. - PARoxetine (PAXIL) 30 mg tablet Take 1 tablet by mouth once daily. - aspirin, enteric coated (ECOTRIN LOW STRENGTH) 81 mg EC tablet Take 1 tablet by mouth once daily. No current facility-administered medications for this visit. ROS: Card: See present history. Pulm: See present history. Gastro: No nausea, vomiting, or diarrhea GenUr: No history of dysuria, frequency or incontinence Endo: Negative for cold or heat intolerance, polyuria or polydipsia. Neuro: Headaches, tremors Musculoskeletal: Chronic low back pain, arthralgias Infect: Negative for fevers or chills. Skin: Negative for lesions, rash, and itching. Heme: Negative for prolonged bleeding, bruising easily or swollen nodes. The remainder of the review of systems is negative. PHYSICAL EXAMINATION: BP 108/72 (BP Site: Right Arm, BP Position: Sitting, BP Cuff Size: Regular Adult) Pulse 63 Ht 180.3 cm (5' 11) Wt 86.5 kg (190 lb 11.2 oz) SpO2 99% BMI 26.60 kg/m? Last 3 Encounter BP Readings: Date: BP: 08/29/2020 161/89 07/16/2020 144/88 07/05/2020 167/93 Last 3 Encounter Pulse Readings: Date: Pulse: 08/29/2020 69 07/16/2020 61 07/05/2020 49 Last 3 Encounter Wt Readings: Date: Wt: 08/29/2020 86.2 kg (190 lb) 07/16/2020 88.5 kg (195 lb) 07/05/2020 90.3 kg (199 lb) GENERAL: alert cooperative, pleasant oriented x 3 (self, time and place) in no acute distress SKIN: warm, dry, no rash. NECK: no JVD, no bruits. CARD: RRR, no murmurs, gallops, or rubs. RESP: Normal respiratory efforts, lungs clear to auscultation bilaterally. ABDOMEN: Soft, nontender, + BS NEURO: A+Ox3, STEIN[place]G EXTREMITIES: No cyanosis, clubbing, or edema. Peripheral pulses well felt. LABS: Glucose (mg/dL) Date Value 08/29/2020 89 Potassium (mmol/L) Date Value 08/29/2020 3.7 Sodium (mmol/L) Date Value 08/29/2020 142 Chloride (mmol/L) (more content not included)... [facility] 08-29-2020 History of Past i llness Narrative Problem Noted Date Resolved Date Chest pain 08/29/2020 08/30/2020 documented as of this encounter (statuses as of 08/04/2021) [facility]07-01[facility]2021 History of Past illness Narrative* Problem Noted Date Resolved Date Chest pain 08/29/2020 08/30/2020 documented as of this encounter (statuses as of 08/18/2021) [facility] History of Past illness Narrative* Problem Noted Date Resolved Date Chest pain 08/29/2020 08/30/2020 documented as of this encounter (statuses as of 08/25/2021) [facility] Diagnosis Facial abrasion, initial encounter- Primary Abrasion of intraoral region, initial encounter Current mild episode of major depressive disorder, unspecified whether recurrent (HCC) documented in this encounter [facility] Work Phone: Evaluation note* Diagnosis Major depressive disorder, single episode, severe with psychotic features (HCC)- Primary Major depressive disorder, single episode, severe, specified as with psychotic behavior [facility] Diagnosis Depression, unspecified depression type documented in this encounter [facility] Summary Purpose Family History No Family History Records FoundNo Family History Records FoundNo Family History Records FoundNo Family History Records FoundNo Family History Records FoundNo Family History Records FoundNo Family History Records Found Advance Directives No Advanced Directives Records FoundDocuments on File Type Date Recorded Patient Restorative Coordinator Expl anation ACP-Advance Directive ACP-Power of Machine Design Engineer Documents on File Type Date Recorded Patient Restorative Coordinator Expl anation Advance Directive(s) 08/04/2021 2:06 PM Advance Directive(s) 01/15/2021 8:31 AM Advance Directive(s) 01/14/2021 8:26 PM Advance Directive(s) 08/29/2020 7:29 AM Advance Directive(s) 07/16/2020 2:11 PM Documents on File Type Date Recorded Patient Restorative Coordinator Expl anation Advance Directive(s) 08/18/2021 12:39 AM Advance Directive(s) 08/17/2021 7:56 PM Advance Directive(s) 08/04/2021 2:06 PM Advance Directive(s) 01/15/2021 8:31 AM Advance Directive(s) 01/14/2021 8:26 PM Advance Directive(s) 08/29/2020 7:29 AM Advance Directive(s) 07/16/2020 2:11 PM Health Concerns Infection Onset Date Last Indicated Resolved Time COVID-19 Rule-Out 08/04/2021 08/04/202108/04/2021 2:54 PM EDT Infection Onset Date Last Indicated Resolved Time COVID-19 Rule-Out 08/17/2021 08/17/2021 08/17/2021 8:35 PM EDT Additional Source Comments (unrecognized sect ion and content) No Status Records FoundNo Status Records FoundNo Status Records FoundNo Status Records FoundNo Status Records FoundNo Status Records FoundNo Status Records Found INFORMATION SOURCE (unrecogn ized section and content) DATE CREATED AUTHOR 08/19/2017 [facility] DATE CREATED AUTHOR AUTHOR'S ORGANIZ ATION 02/14/2021 [facility] DATE CREATED AUTHOR AUTHOR'S ORGANIZ ATION 08/07/2021 [facility] DATE CREATED AUTHOR AUTHOR'S ORGANIZ ATION 08/22/2021 [facility] DATE CREATED AUTHOR AUTHOR'S ORGANIZ ATION 08/26/2021 [facility] DATE CREATED AUTHOR AUTHOR'S ORGANIZ ATION 12/18/2023 [facility] DATE CREATED AUTHOR AUTHOR'S ORGANIZ ATION 06/29/2024 [facility] Reason for Visit (unrecogniz ed section and content) Reason Comments Depression Reason Onset Date Comments Suicidal Ideation 08/04/2021 Reason Onset Date Comments Psychiatric Problem 08/17/2021 Reason Onset Date Comments Transition Of Care 08/25/2021 initial encou nter post hosptial discharge 08/22/21 Source Comments (unrecognize d section and content) In the event this informatio n is protected by the Federal Confidentiality of Alcohol and Drug Abuse Patient Records regulations: The Federal rules restrict any use of the information to criminally investigate or prosecute any alcohol or drug abuse patient.[facility] the event this information is protected by the Federal Confidentiality of Alcohol and Drug Abuse Patient Records regulations: The Federal rules restrict any use of the information to criminally investigate or prosecute any alcohol or drug abuse patient.[facility] the event this information is protected by the Federal Confidentiality of Alcohol and Drug Abuse Patient Records regulations: The Federal rules restrict any use of the information to criminally investigate or prosecute any alcohol or drug abuse patient.[facility] the event this information is protected by the Federal Confidentiality of Alcohol and Drug Abuse Patient Records regulations: The Federal rules restrict any use of the information to criminally investigate or prosecute any alcohol or drug abuse patient.[facility] the event this information is protected by the Federal Confidentiality of Alcohol and Drug Abuse Patient Records regulations: The Federal rules restrict any use of the information to criminally investigate or prosecute any alcohol or drug abuse patient.[facility] Care Teams (unrecognized sec tion and content) Lap Cutter Relationship Specialty Start Date End Date Parviz Smith MD [address] [place] [address] PCP - General Internal Medicine 01/24/21 Valeriy Jimenez DO [facility] [place] [address] Credit Adjuster Cardiology 09/17/20 [facility] [id number], [place] [address] Mental Health Provider Psych/Mental Health 08/04/21 Lap Cutter Relationship Specialty Start Date End Date Parviz Smith MD [address] [place] [address] PCP - General Internal Medicine 01/24/21 Valeriy Jimenez DO [facility] [address] [place], [place] [id number] Credit Adjuster Cardiology 09/17/20 [facility] [id number], [place] [address] Mental Health Provider Psych/Mental Health 08/04/21 Lap Cutter Relationship Specialty Start Date End Date Parviz Smith MD [address] [place] [address] PCP - General Internal Medicine 01/24/21 Valeriy Jimenez DO [facility] [place] [address] Credit Adjuster Cardiology 09/17/20 [facility] [id number], [place] [address] Mental Health Provider Psych/Mental Health 08/04/21 Lap Cutter Relationship Specialty Start Date End Date Eugene Cavanaugh [address] [place] [address], [facility] [place] [address] PCP - General Family Medicine 04/15/23 Valeriy Jimenez DO [address] [place] [address] Credit Adjuster Cardiology 09/17/20 [facility] [address] [place] [address] [id number], [place] [address] Mental Health Provider Psych/Mental Health 08/04/21 Lap Cutter Relationship Specialty Start Date End Date Eugene Cavanaugh [address] [place] [address], [place] [address] PCP - General Family Medicine 04/15/23 Valeriy Jimenez DO [address] [place] [address] Credit Adjuster Cardiology 09/17/20 [facility] [id number], [place] [address] Mental Health Provider Psych/Mental Health 08/04/21 FOR RECORDS PERTAINING TO PATIENTS WHO ARE OR HAVE BEEN ENROLLED IN A CHEMICAL DEPENDENCY/SUBSTANCEABUSE PROGRAM, SOME INFORMATION MAY BE OMITTED. This clinical summary was aggregated from multiple sources. Caution should be exercised in using it in the provision of clinical care. This summary normalizes information from multiple sources, and as a consequence, information in this document may materially change the coding, format and clinical context of patient data. In addition, data may be omitted in some cases. CLINICAL DECISIONS SHOULD BE BASED ON THE PRIMARY CLINICAL RECORDS. [employer] provides no warranty or guarantee of the accuracy or completeness of information in this document.
[2024-12-01] MEDS: fentaNYL drip 100 ML 12.5 MCG CONT INF ×2 (03:26→23:21)
--- NOTE | 2024-12-01 03:26 | PCM.HOSP.N ---
Hospitalist Note Patient intubated and sedated. HR noted to be consistently in the 40s with stable SBP 90s, no change from prior. Will have atropine PRN if needed if BP decreases or patient decompensates.
[2024-12-01 03:53] LABS: Hematocrit 44.8 % (40-54); Hemoglobin 14.9 g/dL (13.0-16.5); Mean Corp Hgb Conc 33.3 g/dL (32-36); Mean Corpuscular Volume 91.4 fL (80-94); Mean Platelet Vol. 10.4 fl (6.2-12.0); Platelet Count 203 K/mm3 (150-450); RBC Distribution Width CV 12.0 % (11.6-14.6); RBC Distribution Width SD 40.2 fl (35.1-43.9); Red Blood Count 4.90 M/mm3 (4.6-6.2); White Blood Count 13.4 K/mm3 (4.4-11.0)
[2024-12-01 04:16] LABS: Anion Gap 11 (5-15); BUN 17 mg/dL (4-19); BUN/Creat Ratio 21.2 RATIO (10-20); Calcium,Total 8.7 mg/dL (7.6-11.0); Carbon Dioxide 21.2 mmol/L (21.0-32.0); Chloride 107 mmol/L (98-108); Estimated Creatinine Clearance 114.55 ml/min (50-250); Glucose 119 mg/dL (70-99); Potassium 4.4 mmol/L (3.3-5.1)
[2024-12-01] MEDS: 0.9% Normal Saline (1000mL) 1,000 ML 150 ML IV ×3 (04:39→18:12)
--- NOTE | 2024-12-01 04:42 | RAD_ITS ---
PROCEDURE: CHEST 1 VIEW (PORTABLE) 12/01/2024 REASON FOR EXAM: ETT PLACEMENT TECHNIQUE: Frontal view of the chest. COMPARISON: None. FINDINGS: Endotracheal tube is in good position. Enteric feeding tube is in good position with its tip at the level of the gastric body. The lungs are expanded. There is no demonstrated parenchymal abnormality. There is no demonstrated pleural abnormality. Enlarged cardiac silhouette. Normal mediastinum and liam. Normal visualized pulmonary arteries. Atheromatous plaques of the visualized aortic arch and descending thoracic aorta. Diffuse spondylosis of the visualized thoracic spine. Normal visualized ribs, clavicles. Degenerative joint disease. There is no demonstrated abnormality of the visualized soft tissue structures of the upper abdomen. RAD/Chest 1 View (Portable) IMPRESSION: Endotracheal tube is in good position. Enteric feeding tube is in good position with its tip at the level of the gastr ic body. Reading Location[facility]
--- NOTE | 2024-12-01 07:24 | PN.CC_ITS ---
Assessment & Plan Assessment/Plan (1) Angioedema: PLAN: Plan RECOMMENDATIONS: 1. Continue assist-control mode of mechanical ventilation. Wean FiO2 and PEEP as tolerated. 2. Empiric antimicrobials. 3. Propofol and fentanyl for sedation. 4. Continue steroids, Benadryl and Pepcid for now. 5. Continue appropriate DVT prophylaxis. IMPRESSIONS: 1. Acute respiratory failure secondary to angioedema in the setting of JENNA inhibitor use Continue assist-control mode mechanical ventilation. Wean FiO2 and PEEP as tolerated. Will plan to continue IV steroids and Benadryl along with Pepcid for now. In addition, there were initial concerns for potential aspiration. Therefore, empiric antimicrobials will be continued pending infectious workup. If cultures are negative, antibiotics will be discontinued. 2. History of hypertension Complicates care, management, recovery and prognosis. Continue supportive measures as noted above. Okay to initiate tube feeding for nutritional support. TIME: 38 minutes of critical care time, independent of procedures, was spent addressing the patient's acute respiratory failure secondary to angioedema, review of all data and collaboration with the care team. Subjective Subjective The patient was seen and examined at the bedside this morning. Events from the last 24 hours have been reviewed. The patient is currently afebrile, hemodynamically stable and maintaining appropriate oxygen saturations on assist- control mode of mechanical ventilation with an FiO2 requirement of 25% and PEEP of 5. The patient is sedated on propofol and fentanyl. No overnight issues were identified by the nursing staff. White blood cell count was mildly elevated at 13,000. Chemistry profile was unremarkable. Objective Data Objective Data The patient's most recent lab work, culture data and imaging studies have all been personally reviewed. Sputum culture is pending. Vital Signs: Vital Signs Temp Pulse Resp BP Pulse Ox O2 Del Method FiO2 99.2 F H 44 L 12 99/60 96 Mechanical Ventilator 12/01/24 06:00 12/01/24 07:00 12/01/24 07:00 12/01/24 07:00 12/01/24 07:00 12/01/24 07:00 12/01/24 07:00 Oxygen Delivery Method Mechanical Ventilator Weight: 192 lb 3.889 oz Body Mass Index (BMI) 28.3 Intake & Output: Intake and Output for Last 24 Hours 11/29/24 11/30/24 12/01/24 23:59 23:59 23:59 Intake Total 1338.45 / 1379.93 1519.56 / 1519.56 Output Total 450 / 450 250 / 250 Balance 888.45 / 929.93 1269.56 / 1269.56 Lab / Micro Data Attestation: I reviewed the patient's lab results. 12/01/24 03:45 12/01/24 03:45 Labs: Laboratory Results - last 24 hr 11/30/24 15:00: WBC 8.3, RBC 5.07, Hgb 16.0, Hct 45.2, MCV 89.2, MCH 31.6, MCHC 35.4, RDW Std Deviation 37.5, RDW Coeff of Hue 11.7, Plt Count 192, MPV 10.3, Immature Gran % (Auto) 0.400, Neut % (Auto) 67.4, Lymph % (Auto) 18.2 L, [facility] % (Auto) 11.8 H, Eos % (Auto) 1.4, Baso % (Auto) 0.8, Absolute Neuts (auto) 5.6, Absolute Lymphs (auto) 1.51, Nucleated RBC % 0, ESR 20, Sodium 138, Potassium 4.0, Chloride 103, Carbon Dioxide 24.2, Anion Gap 11, BUN 14, Creatinine 0.76, Estim Creat Clear Calc 117.13, Est GFR (MDRD) Non-Af 105, BUN/Creatinine Ratio 18.7, Glucose 91, Calcium 9.5, Total Bilirubin 0.58, AST 14, ALT 10, Alkaline Phosphatase 79, Total Creatine Kinase 59, C-React Prot Ext Range 50.20 H, Total Protein 7.4, Albumin 4.4, Globulin 3.0, Albumin/Globulin Ratio 1.5, Triglycerides 122 12/01/24 03:45: WBC 13.4 H, RBC 4.90, Hgb 14.9, Hct 44.8, MCV 91.4, MCH 30.4, M CHC 33.3 D, RDW Std Deviation 40.2, RDW Coeff of Hue 12.0, Plt Count 203, MPV 10.4, Sodium 139, Potassium 4.4, Chloride 107, Carbon Dioxide 21.2, Anion Gap 11, BUN 17, Creatinine 0.78, Estim Creat Clear Calc 114.55, Est GFR (MDRD) Non- Af 104, BUN/Creatinine Ratio 21.2 H, Glucose 119 H, Calcium 8.7 ABG Data ABG results: ABG 11/30/24 16:18 Specimen Type ART Sample Site L Brach pH 7.48 H Bicarbonate Actual 27.7 H Total CO2 29 Base Excess 4 H O2 Saturation 96 O2 % 30.0 ABG pCO2 37.4 ABG pO2 78 Norbert Test Positive Respiration Rate 12 O2 Delivery Device Adult Vent Vent Mode AC/VC Tidal Volume 450.0 POC PEEP 5 Radiography Diagnostic Testing: Radiology Impression Chest X-Ray 11/30/24 15:23 IMPRESSION: Hypoventilation. Platelike atelectasis. Nasogastric tube is in place. Consider advancing 4-6 cm for more optimal positioning. Satisfactory position of the endotracheal tube. Reading Location: [id number] Chest X-Ray 12/01/24 04:42 IMPRESSION: Endotracheal tube is in good position. Enteric feeding tube is in good position with its tip at the level of the gastric body. Reading Location[facility] Physical Exam Const Constitutional Narrative: Intubated, sedated and mechanically ventilated. HEENT normocephalic and head/scalp atraumatic Mouth: endotracheal tube in place and OG tube in place Eyes EOMs intact bilaterally and conjunctivae normal Neck supple General: trachea midline Chest inspection of chest normal Resp normal respiratory effort Auscultation: Negative for rales, rhonchi or wheezes Cardio S1 normal heart sound and S2 normal heart sound Rate: bradycardia GI normal to inspection, nondistended, normoactive bowel sounds Extremity no clubbing, cyanosis or edema Skin no rashes or lesions noted Neuro Sensorium / Orientation: sedated on vent Charges/Coding Procedures Hospitalists Procedures: 11180 Critical Care 1st Hr
[2024-12-01] MEDS: Propofol 10MG/Ml 1,000 MG/100 ML Bottle 10.4 MG CONT INF ×2 (07:44→17:19)
--- NOTE | 2024-12-01 09:20 | NURSING ---
male called in asking if patient was awake and asking if he can come in and get the patient debt card to go buy cat food. male not on pts contact list. pts wallet locked up in patient med drawer for safety. No bradley in patient wallet just cards.
[2024-12-01] MEDS: Chlorhexidine 15 ML PO ×2 (09:29→23:22)
--- NOTE | 2024-12-01 10:04 | NURSING ---
wallet given to son Ez Gutierrez patient okay with son taking wallet
[2024-12-01] MEDS: Vital AF 1.2 Cal Liquid 1,000 ML 20 ML GT (11:29)
--- NOTE | 2024-12-01 11:32 | CASEMGMT ---
RN CM Assessment Face to Face with patient for initial transition planning/care coordination assessment. Pt is currently sedated and intubated and unable to answer this RN CM questions for assessment. TC to pt's NOK, Son (Ez). Ez answers the phone and states that he is agreeable to helping. Ez places this RN CM on speaker phone for the pt's sister. Ez states that there is no POA for the pt. Care providers, pharmacy, and demographics verified. Admitting dx: Angioedema LACE Strata: 1 PCP: No PCP Specialists: None Preferred Pharmacy: [facility] Insurance: None at this time. Ez states that the pt started a new job x1 week ago and that the pt will not have insurance until December 30. SW notified. Prescription Benefit: None at this time LNOK: Ez (Son), Chasity (Sister) Living Arrangements: Pt lives with his son in a 2 story home with 7-8 steps to enter ADLs/IADLs: Emanuel states that the pt is indep at baseline Transportation: Emanuel states that the pt and Chasity drive. Ez does not drive. DME: Emanuel denies all DME uses currently HHC/SNF: Denies hx of Pt?s goal: TBD Plan: TBD. Today is VD#2. CM to follow for PCP, rx costs, therapy evals, oxygen, and disposition needs regarding safe DC planning. Pt's son and sister deny further questions or concerns at this time. Khadra Dean RN, CM
[2024-12-01] MEDS: Meropenem 1 GM in 0.9% Normal Saline (100mL MB+) 100 ML IV ×2 (13:10→21:01)
[2024-12-01] MEDS: fentaNYL drip 100 ML 10 MCG CONT INF (13:10)
--- NOTE | 2024-12-01 14:31 | PN_ITS ---
Subjective Subjective Patient seen and examined. Admitted with a complaint of lip and tongue swelling due to injury edema from lisinopril. Patient has been emergently intubated. He remains intubated. However he is able to open his eyes and nod or shake his head in response to questions. He has a mild fever of 99.5 and patient has been bradycardic with heart rate of 42. Objective Data Objective Data Vital Signs: Vital Signs Temp Pulse Resp BP Pulse Ox O2 Del Method FiO2 99.5 F H 42 L 18 115/76 96 Mechanical Ventilator 12/01/24 14:00 12/01/24 14:00 12/01/24 14:00 12/01/24 14:00 12/01/24 14:00 12/01/24 14:00 12/01/24 13:47 Oxygen Delivery Method Mechanical Ventilator Weight: 192 lb 3.889 oz Body Mass Index (BMI) 28.3 Intake & Output: Intake and Output for Last 24 Hours 11/29/24 11/30/24 12/01/24 23:59 23:59 23:59 Intake Total 1338.45 / 1379.93 2653.63 / 2653.63 Output Total 450 / 450 525 / 525 Balance 888.45 / 929.93 2128.63 / 2128.63 Lab / Micro Data 12/01/24 03:45 12/01/24 03:45 Labs: Laboratory Results - last 24 hr 11/30/24 15:00: WBC 8.3, RBC 5.07, Hgb 16.0, Hct 45.2, MCV 89.2, MCH 31.6, MCHC 35.4, RDW Std Deviation 37.5, RDW Coeff of Hue 11.7, Plt Count 192, MPV 10.3, Immature Gran % (Auto) 0.400, Neut % (Auto) 67.4, Lymph % (Auto) 18.2 L, Walker % (Auto) 11.8 H, Eos % (Auto) 1.4, Baso % (Auto) 0.8, Absolute Neuts (auto) 5.6, Absolute Lymphs (auto) 1.51, Nucleated RBC % 0, ESR 20, Sodium 138, Potassium 4.0, Chloride 103, Carbon Dioxide 24.2, Anion Gap 11, BUN 14, Creatinine 0.76, Estim Creat Clear Calc 117.13, Est GFR (MDRD) Non-Af 105, BUN/Creatinine Ratio 18.7, Glucose 91, Calcium 9.5, Total Bilirubin 0.58, AST 14, ALT 10, Alkaline Phosphatase 79, Total Creatine Kinase 59, C-React Prot Ext Range 50.20 H, Total Protein 7.4, Albumin 4.4, Globulin 3.0, Albumin/Globulin Ratio 1.5, Triglycerides 122 12/01/24 03:45: WBC 13.4 H, RBC 4.90, Hgb 14.9, Hct 44.8, MCV 91.4, MCH 30.4, M CHC 33.3 D, RDW Std Deviation 40.2, RDW Coeff of Hue 12.0, Plt Count 203, MPV 10.4, Sodium 139, Potassium 4.4, Chloride 107, Carbon Dioxide 21.2, Anion Gap 11, BUN 17, Creatinine 0.78, Estim Creat Clear Calc 114.55, Est GFR (MDRD) Non- Af 104, BUN/Creatinine Ratio 21.2 H, Glucose 119 H, Calcium 8.7 Micro: Microbiology 11/30/24 15:45 Sputum, Induced/Lukens Gram Stain - Final ABG Data ABG results: ABG 11/30/24 16:18 Specimen Type ART Sample Site L Brach pH 7.48 H Bicarbonate Actual 27.7 H Total CO2 29 Base Excess 4 H O2 Saturation 96 O2 % 30.0 ABG pCO2 37.4 ABG pO2 78 Norbert Test Positive Respiration Rate 12 O2 Delivery Device Adult Vent Vent Mode AC/VC Tidal Volume 450.0 POC PEEP 5 Radiography Diagnostic Testing: Radiology Impression Chest X-Ray 11/30/24 15:23 IMPRESSION: Hypoventilation. Platelike atelectasis. Nasogastric tube is in place. Consider advancing 4-6 cm for more optimal positioning. Satisfactory position of the endotracheal tube. Reading Location: [id number] Chest X-Ray 12/01/24 04:42 IMPRESSION: Endotracheal tube is in good position. Enteric feeding tube is in good position with its tip at the level of the gastric body. [facility] Physical Exam Const Constitutional Narrative: intubated, sedated, RASS score is 0. Able to open eyes and shake head or nod in response to questions. HEENT normocephalic and head/scalp atraumatic HEENT Narrative: edema of lips and tongue Eyes EOMs intact bilaterally Neck supple and no JVD Lymph Lymphatic: no lymphedema noted Resp Resp Narrative: intubated, sedated, RASS score is 0 Cardio regular rate, regular rhythm, S1 normal heart sound, S2 normal heart sound and no murmurs GI normal to inspection, nondistended, normoactive bowel sounds, soft to palpation and non-tender Extremity normal capillary refill General Extremity: no tenderness to palpation of joints or extremities Skin General Skin Exam: no breakdown Neuro Neuro Narrative: intubated, sedated, RASS score is 0 Assessment & Plan Assessment/Plan (1) Angioedema: PLAN: Plan #Acute hypoxic respiratory failure due to angioedema of lips and tongue * Was admitted with a complaint of diffuse cool to swallowing and lip swelling as well as sore throat. He had copious secretions. He was emergently intubated. * He remains intubated. RASS score 0. Critical care on board. * On IV dexamethasone. Titrate oxygen to maintain saturation above 90%. * Angioedema thought to be due to JENNA inhibitor. Lisinopril discontinued. * #Probable aspiration pneumonitis: * Chest imaging done did show evidence of possible aspiration pneumonitis. * He was therefore started on empiric antibiotics- IV meropenem * Sputum Gram stain showing 1+ gram-positive cocci and 4+ WBC. Sputum cultures pending. * Management as under respiratory failure #Bradycardia: Heart rate in the 40s and 50s. Etiology is unclear. It is a sinus bradycardia. If it persists, will get 2D echo for evaluation #Angioedema: As above. #Hypertension: Lisinopril discontinued. On IV hydralazine as needed. DVT prophylaxis: Lovenox Charges/Coding Visit Charges Inpatient E&M: 34505 Subs Hosp L3
[2024-12-02] VITALS (71 sets, daily range): BP systolic 97–214; BP diastolic 62–103; PULSE 30–108; RESP 12–20; TEMP 36.4–37.6; O2SAT 92–100; BMI 29.8
[2024-12-02] MEDS: 0.9% Normal Saline (1000mL) 1,000 ML 150 ML IV ×3 (00:20→14:14)
[2024-12-02] MEDS: Propofol 10MG/Ml 1,000 MG/100 ML Bottle 15.7 MG CONT INF ×2 (01:19→06:41)
--- NOTE | 2024-12-02 01:55 | PCM.HOSP.N ---
Hospitalist Note Patient with recurrent episodes of bradycardia, rate into the 30s, BP still similar and unchanged. PRN atropine in place. Mag, TSH requested.
--- NOTE | 2024-12-02 03:12 | RAD_ITS ---
PROCEDURE: CHEST 1 VIEW (PORTABLE) 12/02/2024 REASON FOR EXAM: RESPIRATORY FAILURE TECHNIQUE: Frontal view of the chest. COMPARISON: 12/01/2024 FINDINGS: Endotracheal tube is in good position, ending 4 cm away from the layne. Enteric feeding tube is in good position with its tip at the level of the gastric body. Poor inspiratory effort. There is mild cardiomegaly. Mild perihilar and right basal faint infiltrates are seen. Blunted bilateral costophrenic recesses by minimal effusion/reaction. No acute ribs abnormalities. RAD/Chest 1 View (Portable) IMPRESSION: Endotracheal tube is in good position, ending 4 cm away from the layne. Enteric feeding tube is in good position with its tip at the level of the gastr ic body. Poor inspiratory effort. Mild cardiomegaly. Mild perihilar and right basal faint infiltrates. Follow up is advised. Reading [facility]
[2024-12-02 04:59] LABS: Base Excess 0 mmol/L (-2 to +2); FI02 25.0; PEEP 5; PO2 125 mmHG (75-100); RR 12; SITE L Radial; SO2 99 % (95-99)
[2024-12-02] MEDS: DiphenhydrAMINE 50 MG/ML Syringe IV ×3 (06:27→18:24)
[2024-12-02] MEDS: Meropenem 1 GM in 0.9% Normal Saline (100mL MB+) 100 ML IV ×3 (06:27→22:24)
[2024-12-02] MEDS: Vital AF 1.2 Cal Liquid 1,000 ML 30 ML GT (06:27)
[2024-12-02 06:46] LABS: Hematocrit 41.1 % (40-54); Hemoglobin 13.6 g/dL (13.0-16.5); Immature Granulocytes Count 0.030 X10^3/uL (0.0-0.0); Mean Corp Hgb Conc 33.1 g/dL (32-36); Mean Corpuscular Volume 93.6 fL (80-94); Mean Platelet Vol. 10.8 fl (6.2-12.0); NRBC Flagged by Analyzer 0 % (0-5); Platelet Count 185 K/mm3 (150-450); RBC Distribution Width CV 11.9 % (11.6-14.6); RBC Distribution Width SD 41.3 fl (35.1-43.9); Red Blood Count 4.39 M/mm3 (4.6-6.2); White Blood Count 9.2 K/mm3 (4.4-11.0)
[2024-12-02 07:06] LABS: Anion Gap 9 (5-15); BUN 20 mg/dL (4-19); BUN/Creat Ratio 26.5 RATIO (10-20); Calcium,Total 8.3 mg/dL (7.6-11.0); Carbon Dioxide 20.5 mmol/L (21.0-32.0); Chloride 109 mmol/L (98-108); Estimated Creatinine Clearance 121.53 ml/min (50-250); Glucose 132 mg/dL (70-99); Potassium 5.4 mmol/L (3.3-5.1)
[2024-12-02 07:12] LABS: Magnesium 2.3 mg/dL (1.5-2.2)
[2024-12-02] MEDS: fentaNYL drip 100 ML 5 MCG CONT INF (08:03)
[2024-12-02 08:33] LABS: Free T3 1.4 pg/mL (2.18-3.98)
--- NOTE | 2024-12-02 08:42 | PCM.PN.TICU ---
Objective Data Objective Data Vital Signs: Vital Signs Last response Temperature 36.4 C L 12/02/24 06:00 Temperature Source Core 12/02/24 06:00 Pulse Rate 40 L 12/02/24 06:00 Pulse Strength Normal (2+) 12/01/24 22:00 Respiratory Rate 12 12/02/24 06:00 Respiratory Effort Mechanically Ventilated 12/02/24 04:00 Respiratory Depth Normal 12/01/24 03:47 Respiratory Pattern Normal 12/02/24 04:53 Blood Pressure 101/71 12/02/24 06:00 Blood Pressure Mean 81 12/02/24 06:00 Blood Pressure Source Monitor 12/02/24 06:00 Blood Pressure Position Semi-Fowlers 12/01/24 19:00 Blood Pressure Location Right Arm 12/01/24 19:00 Pulse Ox 96 12/02/24 06:00 Oxygen Delivery Method Mechanical Ventilator 12/02/24 06:00 Fraction of Inspired Oxygen (FIO2) 21 12/02/24 06:00 I&O: I&O Last 24 Hours 12/01/24 12/01/24 12/02/24 11:59 23:59 11:59 Intake Total 2611.16 / 3947.70 1336.54 / 3947.70 2617.58 / 2617.58 Output Total 400 / 1425 775 / 1425 600 / 600 Balance 2211.16 / 2522.70 561.54 / 2522.70 2017.58 / 2017.58 I&O: Total Stay 11/30/24 14:30 thru 12/02/24 08:03 Intake Total 7903.73 Output Total 2225 Balance 5678.73 Current Meds Ordered / Administered: Current meds ordered / Administered Generic Name Dose Route Start Last Admin Trade Name Freq PRN Reason Stop Dose Admin Acetaminophen 650 mg 11/30/24 18:59 12/01/24 00:34 Acetaminophen 325 Mg Tablet PO 650 mg Q6H PRN PRN Administration Pain 1-10 Or Fever>100.7 Atropine Sulfate 1 mg 12/01/24 03:13 12/02/24 03:56 Atropine Sulfate 1 Mg/10 Ml Syringe IV 1 mg PRN PRN Administration Unstable bradycardia-notify Chlorhexidine Gluconate 15 ml 11/30/24 22:00 12/01/24 23:22 Chlorhexidine 15 Ml PO 15 ml BID EDUARDO Administration Diphenhydramine HCl 50 mg 11/30/24 23:45 12/02/24 06:27 Diphenhydramine 50 Mg/Ml Syringe IV 50 mg Q6 EDUARDO Administration Enoxaparin Sodium 40 mg 12/01/24 10:00 12/01/24 09:30 Enoxaparin 40 Mg/0.4 Ml Syringe SC 40 mg DAILY EDUARDO Administration Fentanyl Citrate 50 mcg 11/30/24 18:59 Fentanyl 100 Mcg/2 Ml Ampul IV Q2H PRN PRN Pain >/= 4/10 or CPOT>/= 3/8 Hydralazine HCl 10 mg 11/30/24 18:59 Hydralazine 20 Mg/Ml Vial IV Q4H PRN PRN SBP GREATER THAN 170 Protocol Sodium Chloride 1,000 mls @ 150 mls/hr 11/30/24 14:55 12/02/24 06:41 IV 150 mls/hr .[id number] EDUARDO Administration Propofol 1,000 mg in 100 mls @ 5.22 mls/hr 11/30/24 14:55 12/02/24 08:00 Diprivan CONT INF 30 mcg/kg/min .Q12H EDUARDO 15.7 mls/hr Protocol Titration 10 MCG/KG/MIN Fentanyl 100 mls @ 2.5 mls/hr 11/30/24 16:45 12/02/24 08:03 CONT INF 50 mcg/hr UD EDUARDO 5 mls/hr Protocol Administration 25 MCG/HR Sodium Chloride 250 mls @ 15 mls/hr 11/30/24 19:06 12/01/24 02:09 IV 0 mls/hr .[id number] PRN Infusion Saline Flush Sodium Chloride 250 mls @ 15 mls/hr 11/30/24 19:06 IV .[id number] PRN Additional IVPB Infusion Famotidine 20 mg/ Sodium 10 mls @ 300 mls/hr 11/30/24 23:35 12/01/24 21:05 Chloride IV Infused Q12 EDUARDO Infusion Meropenem 1 gm/ Sodium 100 mls @ 33 mls/hr 12/01/24 14:00 12/02/24 06:27 Chloride IV 33 mls/hr Q8 EDUARDO Administration Enteral Nutritional Formula 1,000 mls @ 60 mls/hr 12/01/24 10:40 12/02/24 06:27 Vital Af 1.2 Matheus Liquid GT 30 mls/hr .[id number] EDUARDO Administration Methylprednisolone Sodium Succinate 40 mg 12/01/24 00:00 12/02/24 06:27 Methylprednisolone Sod Succ 40 Mg/Ml Vial IV 40 mg Q6 EDUARDO Administration Ondansetron HCl 4 mg 11/30/24 18:59 Ondansetron 4 Mg/2 Ml Vial IV Q8H PRN PRN NAUSEA/VOMITING Sodium Chloride 10 - 40 ml 11/30/24 19:06 12/01/24 18:18 0.9% Saline Lock 10 Ml Syringe IV 10 ml UD PRN Administration SALINE FLUSH Lab / Micro Data 12/02/24 06:38 12/02/24 06:38 Labs: Laboratory Results - last 24 hr 12/02/24 06:38: WBC 9.2, RBC 4.39 L, Hgb 13.6, Hct 41.1, MCV 93.6, MCH 31.0, MCHC 33.1, RDW Std Deviation 41.3, RDW Coeff of Hue 11.9, Plt Count 185, MPV 10.8, Immature Gran % (Auto) 0.300, Neut % (Auto) 83.2 H, Lymph % (Auto) 10.7 L, Anderson % (Auto) 5.6, Eos % (Auto) 0.0, Baso % (Auto) 0.2, Absolute Neuts (auto) 7.7, Absolute Lymphs (auto) 0.99, Nucleated RBC % 0, Sodium 139, Potassium 5.4 H, Chloride 109 H, Carbon Dioxide 20.5 L, Anion Gap 9, BUN 20 H, Creatinine 0.75, Estim Creat Clear Calc 121.53, Est GFR (MDRD) Non-Af 105, BUN/Creatinine Ratio 26.5 H, Glucose 132 H, Calcium 8.3, Magnesium 2.3 H, TSH 0.125 L, Free T4 1.00, Free T3 pg/dL 1.4 L Micro: Microbiology 11/30/24 15:45 Sputum, Induced/Lukens Gram Stain - Final ABG Data ABG results: ABG 12/02/24 04:54 Specimen Type ART Sample Site L Radial pH 7.38 Bicarbonate Actual 25.4 Total CO2 27 Base Excess 0 O2 Saturation 99 O2 % 25.0 ABG pCO2 42.6 ABG pO2 125 H Norbert Test N/A Respiration Rate 12 O2 Delivery Device Adult Vent Vent Mode AC Tidal Volume 450.0 POC PEEP 5 Imaging Radiology Impression Chest X-Ray 12/02/24 03:12 IMPRESSION: Endotracheal tube is in good position, ending 4 cm away from the layne. Enteric feeding tube is in good position with its tip at the level of the gastric body. Poor inspiratory effort. Mild cardiomegaly. Mild perihilar and right basal faint infiltrates. Follow up is advised. Reading [id number] Assessment and Plan . Assessment and plan: Subjective: Recurrent episodes of bradycardia overnight, required 5 doses of atropine in last 24 hrs by report Physical Exam: Gen - NAD, well-developed, intubated HEENT - MMM. ETT in place. +lip/tongue swelling. Minimal positional cuff leak per RT Resp - CTAB. Mechanically ventilated CV - RRR. No m/g/r Abd - Soft, NT, ND Ext - No c/c/e. Skin - No rashes? Neuro - Sedated, intubated. Awake and can follow some commands I have reviewed the pertinent vital sign, laboratory, and imaging data. ASSESSMENT: # Angioedema - JENNA-I induced # Acute hypoxic respiratory failure # Possible aspiration PNA # Sinus bradycardia # HTN PLAN: -Cont VC vent 450/12/5/21%. Follow ABG/CXR -Await further improvement in facial swelling, hopeful for SBT in next 1-2 days -Monitor HR. Try weaning down propofol or stopping ideally and using fentanyl only. Can start dopamine if recurrent bradycardia -Obtain echo, consider cardiology consult if available. Monitor electrolytes. TSH/T3 mildly low but normal fT4 -Give 2U FFP for persistent angioedema. Cont IV steroids, benadryl, pepcid -Empiric merrem. f/u Cx -Lokelma, monitor K FEN/GI: TF Proph DVT/GI: Lovenox, pepcid Critical Care Time: 50 mins The entirety of this encounter was done via telemedicine using both audio and video. Consent was unable to be obtained for the telemedicine encounter due to the patient's mental status.
[2024-12-02] MEDS: Chlorhexidine 15 ML PO ×2 (08:53→22:31)
[2024-12-02] MEDS: 0.9% Saline Lock 10 ML Syringe IV ×4 (08:54→19:09)
--- NOTE | 2024-12-02 09:23 | ECHOD_ITS ---
Reason For Study Reason For Study: SEVERE BRADYACRDIA Procedure This was a 2D Doppler, Color Flow transthoracic echocardiogram. Exam performed portable in ICU/CCU. Left Ventricle Normal LV size. The estimated ejection fraction is 60 %. No evidence for diastolic dysfunction. No regional wall motion abnormalities noted. Right Ventricle Normal RV size. Normal systolic function. Atria The left and right atria are normal. No doppler evidence for ASD. Mitral Valve There is no mitral valve stenosis. Trivial mitral valve insufficiency. Tricuspid Valve There is no tricuspid stenosis. Trivial tricuspid valve insufficiency. Unable to estimate RV systolic pressure due to insufficient tricuspid regurgitant envelope. Aortic Valve Trisinus/trileaflet aortic valve. There is no aortic stenosis. Trivial aortic valve insufficiency. Pulmonic Valve There is no pulmonic valvular stenosis. Trivial pulmonic valve insufficiency. Great Vessels Normal sized aortic root. Pericardium/Pleural No pericardial effusion. MMode/2D Measurements & Calculations LVIDd: 5.8 cm IVSd: 1.2 cm Ao root diam: 4.2 cm LVIDs: 3.7 cm LVPWd: 1.2 cm FS: 36.9 % LAV(MOD-bp): 56.1 ml LVAd ap4: 31.8 cm2 SV(MOD-sp4): 51.5 ml LAV(MOD-bp) Indexed: 27.1 ml/m2 LVLd ap4: 8.9 cm SI(MOD-sp4): 24.8 ml/m2 LAV(MOD-sp2): 49.2 ml EDV(MOD-sp4): 94.6 ml LAV(MOD-sp4): 56.3 ml EDV(sp4-el): 96.4 ml LVAs ap4: 19.4 cm2 LVLs ap4: 7.3 cm ESV(MOD-sp4): 43.1 ml ESV(sp4-el): 43.7 ml EF(MOD-sp4): 54.4 % EF(sp4-el): 54.7 % SV(sp4-el): 52.7 ml LA A4 area: 18.1 cm2 LA dimension(2D): 3.9 cm RA A4 area: 18.1 cm2 Time Measurements MV dec time: 0.29 sec Doppler Measurements & Calculations MV E max esdras: 59.7 cm/sec Lat Peak E' Esdras: 13.2 cm/sec Med Peak E' Esdras: 9.7 cm/sec MV A max esdras: 45.5 cm/sec E/E' lat: 4.5 E/E' med: 6.2 MV E/A: 1.3 MV V2 max: 74.5 cm/sec Ao V2 max: 133.5 cm/sec MV max P.2 mmHg MV dec slope: 203.3 cm/sec2 Ao max P.3 mmHg MV V2 mean: 40.7 cm/sec Ao V2 mean: 87.6 cm/sec MV mean P.79 mmHg Ao mean P.7 mmHg MV V2 VTI: 35.7 cm Ao V2 VTI: 32.3 cm AV (velocity ratio): 0.93 LV V1 max: 131.5 cm/sec TR max esdras: 239.2 cm/sec LV V1 max P.9 mmHg TR max P.9 mmHg LV V1 mean P.7 mmHg LV V1 mean: 89.5 cm/sec LV V1 VTI: 29.9 cm ECHO/Echo Complete Interpretation Summary The estimated ejection fraction is 60 %. No evidence for diastolic dysfunction. Trivial mitral valve insufficiency. Trivial aortic valve insufficiency. Ordering Physician: Kendall Garcia Referring Physician: ZAN PCP Performed By: Fallon Hernandez RCS
--- NOTE | 2024-12-02 10:12 | PN_ITS ---
Subjective Subjective Patient seen and examined. He still remains intubated and sedated. Per his nurse he has some challenges with bradycardia overnight. He has been getting atropine as needed. Potassium level elevated at 5.4 today. Objective Data Objective Data Vital Signs: Vital Signs Temp Pulse Resp BP Pulse Ox O2 Del Method FiO2 97.6 F L 40 L 12 101/71 96 Mechanical Ventilator 21 12/02/24 06:00 12/02/24 06:00 12/02/24 06:00 12/02/24 06:00 12/02/24 06:00 12/02/24 06:00 12/02/24 06:00 Oxygen Delivery Method Mechanical Ventilator Weight: 202 lb Body Mass Index (BMI) 29.8 Intake & Output: Intake and Output for Last 24 Hours 11/30/24 12/01/24 12/02/24 23:59 23:59 23:59 Intake Total 1338.45 / 1379.93 3947.70 / 3947.70 2836.00 / 2836.00 Output Total 450 / 450 1175 / 1425 600 / 600 Balance 888.45 / 929.93 2772.70 / 2522.70 2236.00 / 2236.00 Lab / Micro Data 12/02/24 06:38 12/02/24 06:38 Labs: Laboratory Results - last 24 hr 12/02/24 06:38: WBC 9.2, RBC 4.39 L, Hgb 13.6, Hct 41.1, MCV 93.6, MCH 31.0, MCHC 33.1, RDW Std Deviation 41.3, RDW Coeff of Hue 11.9, Plt Count 185, MPV 10.8, Immature Gran % (Auto) 0.300, Neut % (Auto) 83.2 H, Lymph % (Auto) 10.7 L, Gonzales % (Auto) 5.6, Eos % (Auto) 0.0, Baso % (Auto) 0.2, Absolute Neuts (auto) 7.7, Absolute Lymphs (auto) 0.99, Nucleated RBC % 0, Sodium 139, Potassium 5.4 H , Chloride 109 H, Carbon Dioxide 20.5 L, Anion Gap 9, BUN 20 H, Creatinine 0.75, Estim Creat Clear Calc 121.53, Est GFR (MDRD) Non-Af 105, BUN/Creatinine Ratio 26.5 H, Glucose 132 H, Calcium 8.3, Magnesium 2.3 H, TSH 0.125 L, Free T4 1.00, Free T3 pg/dL 1.4 L Micro: Microbiology 11/30/24 15:45 Sputum, Induced/Lukens Gram Stain - Final ABG Data ABG results: ABG 12/02/24 04:54 Specimen Type ART Sample Site L Radial pH 7.38 Bicarbonate Actual 25.4 Total CO2 27 Base Excess 0 O2 Saturation 99 O2 % 25.0 ABG pCO2 42.6 ABG pO2 125 H Norbert Test N/A Respiration Rate 12 O2 Delivery Device Adult Vent Vent Mode AC Tidal Volume 450.0 POC PEEP 5 Radiography Diagnostic Testing: Radiology Impression Chest X-Ray 12/02/24 03:12 IMPRESSION: Endotracheal tube is in good position, ending 4 cm away from the layne. Enteric feeding tube is in good position with its tip at the level of the gastric body. Poor inspiratory effort. Mild cardiomegaly. Mild perihilar and right basal faint infiltrates. Follow up is advised. Reading Location: [place] [id number] Physical Exam Const average body habitus Constitutional Narrative: intubated, sedated, RASS score is 0. Able to open eyes and shake head or nod in response to questions. HEENT normocephalic, head/scalp atraumatic and moist oral mucous membranes Eyes PERRL, EOMs intact bilaterally and conjunctivae normal Neck supple and no JVD Lymph Lymphatic: no lymphedema noted Chest inspection of chest normal Resp Resp Narrative: intubated, sedated, RASS score is 0 Cardio regular rate, regular rhythm, S1 normal heart sound, S2 normal heart sound, no murmurs and peripheral pulses 2+ throughout GI normal to inspection, nondistended, normoactive bowel sounds, soft to palpation, non-tender and non-distended Extremity normal to inspection, normal capillary refill and no pedal edema General Extremity: no tenderness to palpation of joints or extremities Skin no rashes or lesions noted General Skin Exam: no breakdown Neuro Neuro Narrative: intubated, sedated, RASS score is 0 Assessment & Plan Assessment/Plan (1) Angioedema: PLAN: Plan #Acute hypoxic respiratory failure due to angioedema of lips and tongue * Was admitted with a complaint of diffuse cool to swallowing and lip swelling as well as sore throat. He had copious secretions. He was emergently intubated. * He remains intubated. RASS score 0. Critical care on board. * On IV dexamethasone. Titrate oxygen to maintain saturation above 90%. * Angioedema thought to be due to JENNA inhibitor. Lisinopril discontinued. * #Probable aspiration pneumonitis: * Chest imaging done did show evidence of possible aspiration pneumonitis. * He was therefore started on empiric antibiotics- IV meropenem * Sputum Gram stain showing 1+ gram-positive cocci and 4+ WBC. Sputum cultures pending. * Management as under respiratory failure #Bradycardia: Heart rate in the 40s and 50s. Etiology is unclear. It is a sinus bradycardia. Has been getting atropine prn. 2D echo ordered. #Hyperkalemia: K is 5.4. Will give a dose of kayexalate and monitor. #Angioedema: As above. #Hypertension: Lisinopril discontinued. On IV hydralazine as needed. DVT prophylaxis: Lovenox Charges/Coding Visit Charges Inpatient E&M: 58359 Subs Hosp L2
[2024-12-02] MEDS: DOPamine IV 800 MG/250 ML IV.SOLN. 8.6 MG CONT INF (11:32)
[2024-12-02] MEDS: Famotidine 200 MG/20 ML MDV 20 MG in 0.9% Normal Saline (Pres. free 8 ML 300 MG IV ×2 (11:45→22:25)
[2024-12-02] MEDS: TITRATION PARAMETER CHANGE 1 EACH IV (14:13)
[2024-12-02] MEDS: fentaNYL drip 100 ML 20 MCG CONT INF ×2 (14:20→19:07)
[2024-12-02] MEDS: Propofol 10MG/Ml 1,000 MG/100 ML Bottle 7.8 MG CONT INF (14:27)
[2024-12-02] MEDS: Propofol 10MG/Ml 1,000 MG/100 ML Bottle 20.9 MG CONT INF (19:49)
[2024-12-03] VITALS (88 sets, daily range): BP systolic 112–191; BP diastolic 67–103; PULSE 32–77; RESP 12–20; TEMP 36.4–37.1; O2SAT 92–100; BMI 29.5
[2024-12-03] MEDS: Propofol 10MG/Ml 1,000 MG/100 ML Bottle 20.9 MG CONT INF ×2 (00:10→03:56)
[2024-12-03] MEDS: DiphenhydrAMINE 50 MG/ML Syringe IV ×4 (00:18→18:04)
[2024-12-03] MEDS: 0.9% Saline Lock 10 ML Syringe IV ×8 (00:51→22:26)
--- NOTE | 2024-12-03 00:55 | NURSING ---
Staff in room repositioning patient a few minutes before HR alarmed on library monitor. When in room repositioning, patient alert and cooperative with staff during care. HR mid 40s during care. Patient had no concerns or complaints when asked. At 0045 monitor began alarming HR low to mid 30s and staff entered room; ETT cuff sounded to have a leak, patient pulling TV ~120-150s, patient responsive however slower to respond than he had been previously. PRN atropine x1 give, restarted dopamine drip.
[2024-12-03] MEDS: Vital AF 1.2 Cal Liquid 1,000 ML 60 ML GT ×2 (01:17→18:06)
[2024-12-03] MEDS: 0.9% Normal Saline (1000mL) 1,000 ML 150 ML IV (03:56)
[2024-12-03 04:38] LABS: Anion Gap 9 (5-15); BUN 17 mg/dL (4-19); BUN/Creat Ratio 30.6 RATIO (10-20); Calcium,Total 8.8 mg/dL (7.6-11.0); Carbon Dioxide 24.1 mmol/L (21.0-32.0); Chloride 107 mmol/L (98-108); Estimated Creatinine Clearance 162.77 ml/min (50-250); Glucose 154 mg/dL (70-99); Potassium 4.4 mmol/L (3.3-5.1)
[2024-12-03] MEDS: fentaNYL drip 100 ML 20 MCG CONT INF ×2 (04:53)
[2024-12-03] MEDS: Meropenem 1 GM in 0.9% Normal Saline (100mL MB+) 100 ML IV ×3 (05:08→21:46)
[2024-12-03 05:13] LABS: Hematocrit 46.7 % (40-54); Hemoglobin 15.3 g/dL (13.0-16.5); Immature Granulocytes Count 0.050 X10^3/uL (0.0-0.0); Mean Corp Hgb Conc 32.8 g/dL (32-36); Mean Corpuscular Volume 94.5 fL (80-94); Mean Platelet Vol. 10.3 fl (6.2-12.0); NRBC Flagged by Analyzer 0 % (0-5); Platelet Count 234 K/mm3 (150-450); RBC Distribution Width CV 11.9 % (11.6-14.6); RBC Distribution Width SD 41.6 fl (35.1-43.9); Red Blood Count 4.94 M/mm3 (4.6-6.2); White Blood Count 9.4 K/mm3 (4.4-11.0)
[2024-12-03 05:40] LABS: Base Excess 7 mmol/L (-2 to +2); FI02 21.0; PEEP 5; PO2 74 mmHG (75-100); RR 12; SITE L Radial; SO2 95 % (95-99)
[2024-12-03] MEDS: Chlorhexidine 15 ML PO ×2 (07:43→21:47)
[2024-12-03] MEDS: Famotidine 200 MG/20 ML MDV 20 MG in 0.9% Normal Saline (Pres. free 8 ML 300 MG IV ×2 (07:46→21:46)
[2024-12-03] MEDS: Propofol 10MG/Ml 1,000 MG/100 ML Bottle 21.7 MG CONT INF (08:35)
--- NOTE | 2024-12-03 08:44 | PN.CC_ITS ---
Objective Data Objective Data Vital Signs: Vital Signs Last response 3 Temperature 36.9 C 12/03/24 08:00 Temperature Source Core 12/03/24 08:00 Pulse Rate 70 12/03/24 08:00 Pulse Strength Normal (2+) 12/02/24 20:39 Respiratory Rate 20 H 12/03/24 08:00 Respiratory Effort Mechanically Ventilated 12/03/24 04:00 Respiratory Depth Normal 12/03/24 04:00 Respiratory Pattern Normal 12/03/24 06:39 Blood Pressure 120/76 12/03/24 08:00 Blood Pressure Mean 90 12/03/24 08:00 Blood Pressure Source Monitor 12/03/24 08:00 Blood Pressure Position Semi-Fowlers 12/03/24 08:00 Blood Pressure Location Right Arm 12/03/24 08:00 Pulse Ox 98 12/03/24 08:00 Oxygen Delivery Method Mechanical Ventilator 12/03/24 08:00 Fraction of Inspired Oxygen (FIO2) 21 12/03/24 08:00 I&O: I&O Last 24 Hours 3 12/02/24 12/02/24 12/03/24 11:59 23:59 11:59 Intake Total 2975.76 / 5861.75 2845.09 / 5861.75 2023.37 / 2023.37 Output Total 600 / 3675 3075 / 3675 1800 / 1800 Balance 2375.76 / 2186.75 -229.91 / 2186.75 223.37 / 223.37 I&O: Total Stay 3 11/30/24 14:30 thru 12/03/24 08:35 Intake Total 86686.37 Output Total 7100 Balance 6030.37 Current Meds Ordered / Administered: Current meds ordered / Administered 3 Generic Name Dose Route Start Last Admin Trade Name Freq PRN Reason Stop Dose Admin Acetaminophen 650 mg 11/30/24 18:59 12/01/24 00:34 Acetaminophen 325 Mg Tablet PO 650 mg Q6H PRN PRN Administration Pain 1-10 Or Fever>100.7 Atropine Sulfate 1 mg 12/01/24 03:13 12/03/24 05:10 Atropine Sulfate 1 Mg/10 Ml Syringe IV 1 mg PRN PRN Administration Unstable bradycardia-notify Chlorhexidine Gluconate 15 ml 11/30/24 22:00 12/03/24 07:43 Chlorhexidine 15 Ml PO 15 ml BID EDUARDO Administration Diphenhydramine HCl 50 mg 11/30/24 23:45 12/03/24 05:08 Diphenhydramine 50 Mg/Ml Syringe IV 50 mg Q6 EDUARDO Administration Enoxaparin Sodium 40 mg 12/01/24 10:00 12/03/24 07:44 Enoxaparin 40 Mg/0.4 Ml Syringe SC 40 mg DAILY EDUARDO Administration Fentanyl Citrate 50 mcg 11/30/24 18:59 Fentanyl 100 Mcg/2 Ml Ampul IV Q2H PRN PRN Pain >/= 4/10 or CPOT>/= 3/8 Hydralazine HCl 10 mg 11/30/24 18:59 12/02/24 12:12 Hydralazine 20 Mg/Ml Vial IV 10 mg Q4H PRN PRN Administration SBP GREATER THAN 170 Protocol Sodium Chloride 1,000 mls @ 150 mls/hr 11/30/24 14:55 12/03/24 03:56 IV 150 mls/hr .[id number] EDUARDO Administration Propofol 1,000 mg in 100 mls @ 5.418 mls/hr 11/30/24 14:55 12/03/24 08:35 Diprivan CONT INF 40 mcg/kg/min .Q12H EDUARDO 21.7 mls/hr Protocol Administration 10 MCG/KG/MIN Fentanyl 100 mls @ 2.5 mls/hr 11/30/24 16:45 12/03/24 08:00 CONT INF 150 mcg/hr UD EDUARDO 15 mls/hr Protocol Titration 25 MCG/HR Sodium Chloride 250 mls @ 15 mls/hr 11/30/24 19:06 12/01/24 02:09 IV 0 mls/hr .[id number] PRN Infusion Saline Flush Sodium Chloride 250 mls @ 15 mls/hr 11/30/24 19:06 IV .[id number] PRN Additional IVPB Infusion Famotidine 20 mg/ Sodium 10 mls @ 300 mls/hr 11/30/24 23:35 12/03/24 08:00 Chloride IV Infused Q12 EDUARDO Infusion Meropenem 1 gm/ Sodium 100 mls @ 33 mls/hr 12/01/24 14:00 12/03/24 08:11 Chloride IV Infused Q8 EDUARDO Infusion Enteral Nutritional Formula 1,000 mls @ 60 mls/hr 12/01/24 10:40 12/03/24 01:17 Vital Af 1.2 Matheus Liquid GT 60 mls/hr .[id number] EDUARDO Administration Dopamine HCl/Dextrose 800 mg in 250 mls @ 8.466 mls/hr 12/02/24 09:30 12/03/24 07:00 CONT INF 0 mcg/kg/min .[id number] EDUARDO 0 mls/hr Protocol Titration 5 MCG/KG/MIN Sodium Chloride 500 mls @ 15 mls/hr 12/02/24 22:00 IV PRN PRN Blood Transfusion Methylprednisolone Sodium Succinate 40 mg 12/01/24 00:00 12/03/24 05:07 Methylprednisolone Sod Succ 40 Mg/Ml Vial IV 40 mg Q6 EDUARDO Administration Ondansetron HCl 4 mg 11/30/24 18:59 Ondansetron 4 Mg/2 Ml Vial IV Q8H PRN PRN NAUSEA/VOMITING Sodium Chloride 10 - 40 ml 11/30/24 19:06 12/03/24 00:51 0.9% Saline Lock 10 Ml Syringe IV 10 ml UD PRN Administration SALINE FLUSH Lab / Micro Data 12/03/24 05:03 12/03/24 04:15 Labs: Laboratory Results - last 24 hr 12/02/24 11:45: Blood Type O NEGATIVE 12/03/24 04:15: WBC Cancelled, Corrected WBC Cancelled, RBC Cancelled, Hgb Cancelled, Hct Cancelled, MCV Cancelled, MCH Cancelled, MCHC Cancelled, RDW Std Deviation Cancelled, RDW Coeff of Hue Cancelled, Plt Count Cancelled, MPV Cancelled, Immature Gran % (Auto) Cancelled, Neut % (Auto) Cancelled, Lymph % (Auto) Cancelled, [place] % (Auto) Cancelled, Eos % (Auto) Cancelled, Baso % (Auto) Cancelled, Absolute Neuts (auto) Cancelled, Absolute Lymphs (auto) Cancelled, Total Counted Cancelled, Neutrophils % (Manual) Cancelled, Band Neutrophils % Cancelled, Lymphocytes % (Manual) Cancelled, Monocytes % (Manual) Cancelled, Eosinophils % (Manual) Cancelled, Basophils % (Manual) Cancelled, Metamyelocytes % Cancelled, Myelocytes % Cancelled, Promyelocytes % Cancelled, Blast Cells % Cancelled, Plasma Cell % (Manual) Cancelled, Other Cells % Cancelled, Nucleated RBC % Cancelled, Nucleated RBCs/100 WBC Cancelled, Differential Comment Cancelled, Diff Path Review Cancelled, Hypersegmented Neuts Cancelled, Atypical Lymphocytes Cancelled, Reactive Lymphocytes Cancelled, Smudge Cells Cancelled, Toxic Granulation Cancelled, Toxic Vacuolation Cancelled, Dohle Bodies Cancelled, Juan Francisco Rods Cancelled, Platelet Estimate Cancelled, Plt Morphology Comment Cancelled, RBC Morphology Cancelled 12/03/24 04:15: RBC Morphology Cancelled, Polychromasia Cancelled, Hypochromasia Cancelled, Basophilic Stippling Cancelled, Anisocytosis Cancelled, Microcytosis Cancelled, Macrocytosis Cancelled, Spherocytes Cancelled, Sickle Cells Cancelled, Target Cells Cancelled, Tear Drop Cells Cancelled, Ovalocytes Cancelled, Stomatocytes Cancelled, [place] Bodies Cancelled, Kim Cells Cancelled, Bite Cells Cancelled, Crenated Cell Cancelled, Acanthocytes (Spur) Cancelled, Rouleaux Cancelled, Schistocytes Cancelled, Sodium 141, Potassium 4.4, Chloride 107, Carbon Dioxide 24.1, Anion Gap 9, BUN 17, Creatinine 0.56 L, Estim Creat Clear Calc 162.77, Est GFR (MDRD) Non-Af 115, BUN/Creatinine Ratio 30.6 H, Glucose 154 H, Calcium 8.8 12/03/24 05:03: WBC 9.4, RBC 4.94, Hgb 15.3, Hct 46.7, MCV 94.5 H, MCH 31.0, MCHC 32.8, RDW Std Deviation 41.6, RDW Coeff of Hue 11.9, Plt Count 234, MPV 10.3, Immature Gran % (Auto) 0.500, Neut % (Auto) 87.1 H, Lymph % (Auto) 7.4 L, [place] % (Auto) 4.7, Eos % (Auto) 0.1, Baso % (Auto) 0.2, Absolute Neuts (auto) 8.2 H, Absolute Lymphs (auto) 0.69 L, Nucleated RBC % 0 Micro: Microbiology 11/30/24 15:45 Sputum, Induced/Lukens Gram Stain - Final 11/30/24 15:45 Sputum, Induced/Lukens Respiratory Culture - Preliminary ABG Data ABG results: ABG 12/03/24 05:36 Specimen Type ART Sample Site L Radial pH 7.41 Bicarbonate Actual 31.6 H Total CO2 33 Base Excess 7 H O2 Saturation 95 O2 % 21.0 ABG pCO2 50.4 H ABG pO2 74 L Norbert Test N/A Respiration Rate 12 O2 Delivery Device Adult Vent Vent Mode AC Tidal Volume 450.0 POC PEEP 5 Imaging Radiology Impression Echocardiogram 12/02/24 09:23 Interpretation Summary The estimated ejection fraction is 60 %. No evidence for diastolic dysfunction. Trivial mitral valve insufficiency. Trivial aortic valve insufficiency. Ordering Physician: Kendall Garcia Referring Physician: ZAN PCP Performed By: Fallon Hernandez RCS Assessment and Plan . Assessment and plan: Subjective: No acute events o/n. Still required intermittent atropine overnight Physical Exam: Gen - NAD, well-developed, intubated HEENT - MMM. ETT in place. +lip/tongue swelling. Minimal positional cuff leak per RT Resp - CTAB. Mechanically ventilated CV - Bradycardic, regular. No m/g/r Abd - Soft, NT, ND Ext - No c/c/e. Skin - No rashes? Neuro - Sedated, intubated. Awake and can follow some commands I have reviewed the pertinent vital sign, laboratory, and imaging data. ASSESSMENT: # Angioedema - JENNA-I induced # Acute hypoxic respiratory failure # Possible aspiration PNA # Sinus bradycardia # HTN PLAN: -Cont VC vent 450/12/5/21%. Follow ABG/CXR -Cont fentanyl, try stopping prop and switching to versed given recurrent severe bradycardia -Await further improvement in facial swelling, possible SBT tmrw -Off dopamine currently, requiring PRN atropine for bradycardia -Check troponin. Consider cardiology consult if available. TTE with normal LV/RV function. Monitor electrolytes. TSH/T3 mildly low but normal fT4 -Received 2U FFP 12/02- for persistent angioedema. Cont IV steroids, benadryl, pepcid -Empiric merrem. f/u Cx -Stop IVF FEN/GI: TF Proph DVT/GI: Lovenox, pepcid Critical Care Time: 50 mins The entirety of this encounter was done via telemedicine using both audio and video. Consent was unable to be obtained for the telemedicine encounter due to the patient's mental status.
--- NOTE | 2024-12-03 10:18 | PN_ITS ---
Subjective Subjective Patient seen and examined. He remains intubated and sedated. Nursing has struggled with weaning off the sedation due to problems with bradycardia and hypertension. He is alert and able to nod or shake his head in response to questions. He still remains bradycardic with HR in the 40s. Objective Data Objective Data Vital Signs: Vital Signs Temp Pulse Resp BP Pulse Ox O2 Del Method FiO2 98.4 F 40 L 12 120/76 96 Mechanical Ventilator 21 12/03/24 08:00 12/03/24 10:07 12/03/24 10:07 12/03/24 08:00 12/03/24 10:07 12/03/24 08:00 12/03/24 10:07 Oxygen Delivery Method Mechanical Ventilator Weight: 199 lb 1.239 oz Body Mass Index (BMI) 29.5 Intake & Output: Intake and Output for Last 24 Hours 12/01/24 12/02/24 12/03/24 23:59 23:59 23:59 Intake Total 3947.70 / 3947.70 5820.85 / 5861.75 2123.37 / 2123.37 Output Total 1175 / 1425 3675 / 3675 1800 / 1800 Balance 2772.70 / 2522.70 2145.85 / 2186.75 323.37 / 323.37 Lab / Micro Data 12/03/24 05:03 12/03/24 04:15 Labs: Laboratory Results - last 24 hr 12/02/24 11:45: Blood Type O NEGATIVE 12/03/24 04:15: WBC Cancelled, Corrected WBC Cancelled, RBC Cancelled, Hgb Cancelled, Hct Cancelled, MCV Cancelled, MCH Cancelled, MCHC Cancelled, RDW Std Deviation Cancelled, RDW Coeff of Hue Cancelled, Plt Count Cancelled, MPV Cancelled, Immature Gran % (Auto) Cancelled, Neut % (Auto) Cancelled, Lymph % (Auto) Cancelled, [place] % (Auto) Cancelled, Eos % (Auto) Cancelled, Baso % (Auto) Cancelled, Absolute Neuts (auto) Cancelled, Absolute Lymphs (auto) Cancelled, Total Counted Cancelled, Neutrophils % (Manual) Cancelled, Band Neutrophils % Cancelled, Lymphocytes % (Manual) Cancelled, Monocytes % (Manual) Cancelled, Eosinophils % (Manual) Cancelled, Basophils % (Manual) Cancelled, Metamyelocytes % Cancelled, Myelocytes % Cancelled, Promyelocytes % Cancelled, Blast Cells % Cancelled, Plasma Cell % (Manual) Cancelled, Other Cells % Cancelled, Nucleated RBC % Cancelled, Nucleated RBCs/100 WBC Cancelled, Differential Comment Cancelled, Diff Path Review Cancelled, Hypersegmented Neuts Cancelled, Atypical Lymphocytes Cancelled, Reactive Lymphocytes Cancelled, Smudge Cells Cancelled, Toxic Granulation Cancelled, Toxic Vacuolation Cancelled, Dohle Bodies Cancelled, Juan Francisco Rods Cancelled, Platelet Estimate Cancelled, Plt Morphology Comment Cancelled, RBC Morphology Cancelled 12/03/24 04:15: RBC Morphology Cancelled, Polychromasia Cancelled, Hypochromasia Cancelled, Basophilic Stippling Cancelled, Anisocytosis Cancelled, Microcytosis Cancelled, Macrocytosis Cancelled, Spherocytes Cancelled, Sickle Cells Cancelled, Target Cells Cancelled, Tear Drop Cells Cancelled, Ovalocytes Cancelled, Stomatocytes Cancelled, [place] Bodies Cancelled, Kim Cells Cancelled, Bite Cells Cancelled, Crenated Cell Cancelled, Acanthocytes (Spur) Cancelled, Rouleaux Cancelled, Schistocytes Cancelled, Sodium 141, Potassium 4.4, Chloride 107, Carbon Dioxide 24.1, Anion Gap 9, BUN 17, Creatinine 0.56 L, Estim Creat Clear Calc 162.77, Est GFR (MDRD) Non-Af 115, BUN/Creatinine Ratio 30.6 H, Glucose 154 H, Calcium 8.8 12/03/24 05:03: WBC 9.4, RBC 4.94, Hgb 15.3, Hct 46.7, MCV 94.5 H, MCH 31.0, MCHC 32.8, RDW Std Deviation 41.6, RDW Coeff of Hue 11.9, Plt Count 234, MPV 10.3, Immature Gran % (Auto) 0.500, Neut % (Auto) 87.1 H, Lymph % (Auto) 7.4 L, [place] % (Auto) 4.7, Eos % (Auto) 0.1, Baso % (Auto) 0.2, Absolute Neuts (auto) 8.2 H, Absolute Lymphs (auto) 0.69 L, Nucleated RBC % 0 Micro: Microbiology 11/30/24 15:45 Sputum, Induced/Lukens Gram Stain - Final 11/30/24 15:45 Sputum, Induced/Lukens Respiratory Culture - Preliminary ABG Data ABG results: ABG 12/03/24 05:36 Specimen Type ART Sample Site L Radial pH 7.41 Bicarbonate Actual 31.6 H Total CO2 33 Base Excess 7 H O2 Saturation 95 O2 % 21.0 ABG pCO2 50.4 H ABG pO2 74 L Norbert Test N/A Respiration Rate 12 O2 Delivery Device Adult Vent Vent Mode AC Tidal Volume 450.0 POC PEEP 5 Radiography Diagnostic Testing: Radiology Impression Echocardiogram 12/02/24 09:23 Interpretation Summary The estimated ejection fraction is 60 %. No evidence for diastolic dysfunction. Trivial mitral valve insufficiency. Trivial aortic valve insufficiency. Ordering Physician: Kendall Garcia Referring Physician: ZAN PCP Performed By: Fallon Hernandez RCS Physical Exam Const average body habitus Constitutional Narrative: intubated, sedated, RASS score is 0. Able to open eyes and shake head or nod in response to questions. HEENT normocephalic, head/scalp atraumatic and moist oral mucous membranes HEENT Narrative: lips are still edematous Eyes PERRL, EOMs intact bilaterally and conjunctivae normal Neck supple and no JVD Lymph Lymphatic: no lymphedema noted Resp Resp Narrative: intubated, sedated, RASS score is 0. Diminished breath sounds bibasally, no wheezes or crackles. Cardio regular rate, regular rhythm, S1 normal heart sound, S2 normal heart sound, no murmurs and peripheral pulses 2+ throughout GI normal to inspection, nondistended, normoactive bowel sounds, soft to palpation, non-tender and non-distended Extremity normal to inspection, normal capillary refill and no pedal edema General Extremity: no tenderness to palpation of joints or extremities Skin no rashes or lesions noted General Skin Exam: no breakdown Neuro Neuro Narrative: intubated, sedated, RASS score is 0 Assessment & Plan Assessment/Plan (1) Angioedema: PLAN: Plan #Acute hypoxic respiratory failure due to angioedema of lips and tongue * Was admitted with a complaint of diffuse cool to swallowing and lip swelling as well as sore throat. He had copious secretions. He was emergently intubated. * He remains intubated. RASS score 0. Critical care on board. * patient has been having bradycardia and hypertension, making it diffult to extubate him * On IV dexamethasone. Titrate oxygen to maintain saturation above 90%. * Angioedema thought to be due to JENNA inhibitor. Lisinopril discontinued. * #Probable aspiration pneumonitis: * Chest imaging done did show evidence of possible aspiration pneumonitis. * He was therefore started on empiric antibiotics- IV meropenem * Sputum Gram stain showing 1+ gram-positive cocci and 4+ WBC. Sputum cultures pending. * Management as under respiratory failure #Bradycardia: * Heart rate in the 40s and 50s. Etiology is unclear. * It is a sinus bradycardia. * Has been getting atropine prn. * 2D echo showed EF of 60% with no regional wall motion abnormalities and no evidence of diastolic dysfunction. #Hyperkalemia: resolved. K is 4.4. #Angioedema: As above. #Hypertension: Lisinopril discontinued. On IV hydralazine as needed. DVT prophylaxis: Lovenox Charges/Coding Visit Charges Inpatient E&M: 52359 Subs Hosp L3
[2024-12-03] MEDS: Midazolam 50 MG in 0.9% Normal Saline (100mL Bag) 90 ML CONT INF (10:30)
[2024-12-03 10:42] LABS: Troponin T High Sensitivity 11 ng/L (<=22)
[2024-12-03] MEDS: fentaNYL drip 100 ML 15 MCG CONT INF ×2 (11:41→18:04)
[2024-12-03 12:24] LABS: Troponin T High Sens 2 HR 9 ng/L (<=22)
[2024-12-03] MEDS: Midazolam 50 MG in 0.9% Normal Saline (100mL Bag) 90 ML 12 MG CONT INF (20:19)
[2024-12-04] VITALS (36 sets, daily range): BP systolic 136–196; BP diastolic 83–109; PULSE 45–101; RESP 12–31; TEMP 36.6–37.3; O2SAT 91–100; BMI 30.1
[2024-12-04] MEDS: DiphenhydrAMINE 50 MG/ML Syringe IV ×2 (00:14→06:00)
[2024-12-04] MEDS: fentaNYL drip 100 ML 15 MCG CONT INF (01:03)
[2024-12-04 04:35] LABS: Hematocrit 43.7 % (40-54); Hemoglobin 14.6 g/dL (13.0-16.5); Immature Granulocytes Count 0.030 X10^3/uL (0.0-0.0); Mean Corp Hgb Conc 33.4 g/dL (32-36); Mean Corpuscular Volume 93.2 fL (80-94); Mean Platelet Vol. 10.7 fl (6.2-12.0); NRBC Flagged by Analyzer 0 % (0-5); Platelet Count 200 K/mm3 (150-450); RBC Distribution Width CV 12.0 % (11.6-14.6); RBC Distribution Width SD 41.2 fl (35.1-43.9); Red Blood Count 4.69 M/mm3 (4.6-6.2); White Blood Count 8.8 K/mm3 (4.4-11.0)
[2024-12-04] MEDS: Midazolam 50 MG in 0.9% Normal Saline (100mL Bag) 90 ML 12 MG CONT INF (04:42)
[2024-12-04 04:54] LABS: Anion Gap 10 (5-15); BUN 21 mg/dL (4-19); BUN/Creat Ratio 37.9 RATIO (10-20); Calcium,Total 8.5 mg/dL (7.6-11.0); Carbon Dioxide 24.3 mmol/L (21.0-32.0); Chloride 107 mmol/L (98-108); Estimated Creatinine Clearance 160.38 ml/min (50-250); Glucose 144 mg/dL (70-99); Potassium 4.3 mmol/L (3.3-5.1)
[2024-12-04] MEDS: Meropenem 1 GM in 0.9% Normal Saline (100mL MB+) 100 ML IV ×3 (05:57→21:29)
--- NOTE | 2024-12-04 06:00 | RAD_ITS ---
PROCEDURE: CHEST 1 VIEW (PORTABLE) 12/04/2024 REASON FOR EXAM: RESP FAILURE TECHNIQUE: Frontal view of the chest. COMPARISON: 12/02/2024 FINDINGS: Stable positioning of the endotracheal and enteric tubes. Suboptimal inspiration. No appreciable focal consolidation, pneumothorax or sizable pleural effusion. Cardiac silhouette appears normal in size given technique. No acute osseous abnormality. RAD/Chest 1 View (Portable) IMPRESSION: Support lines/tubes in stable appropriate positioning. Shallow inspiration. No evidence of acute pulmonary disease. Reading Location: [id number]
--- NOTE | 2024-12-04 06:52 | PN.CC_ITS ---
Assessment & Plan Assessment/Plan (1) Angioedema: PLAN: Plan RECOMMENDATIONS: 1. Proceed with a trial of extubation this morning. 2. Once extubated, wean supplemental oxygen to maintain saturations at or above 90%. 3. Continue empiric antimicrobials, pending sputum culture results. 4. Okay to discontinue scheduled Benadryl. 5. Continue corticosteroids for now. 6. Continue appropriate DVT prophylaxis. 7. Cardiology consultation pending regarding symptomatic bradycardia. IMPRESSIONS: 1. Acute respiratory failure secondary to angioedema in the setting of JENNA inhibitor use With supportive care, including corticosteroids, Benadryl and Pepcid, the patient has improved clinically. He will be continued on empiric antibiotics, pending sputum culture results. The patient passed a spontaneous breathing trial this morning. He does have a discernible air leak noted with deflation of the area relief pilot balloon. Therefore, we will plan to proceed with a trial of extubation. Once extubated, supplemental oxygen will be weaned to maintain saturations at or above 90%. 2. History of hypertension/symptomatic bradycardia Complicates care, management, recovery and prognosis. Will obtain cardiology consultation given persistent bradycardia. TIME: 35 minutes of critical care time, independent of procedures, was spent addressing the patient's acute respiratory failure secondary to angioedema, review of all data and collaboration with the care team. Subjective Subjective The patient was seen and examined at the bedside this morning. Events from the last 24 hours have been reviewed. The patient is currently afebrile, hemodynamically stable and maintaining appropriate oxygen saturations on assist- control mode of mechanical ventilation with an FiO2 requirement of 21% and PEEP of 5. Over the weekend, the patient encountered issues with symptomatic bradycardia, which was medically managed with atropine and dopamine for period of time. The patient was weaned off of dopamine completely yesterday. White blood cell count is normal. Hemoglobin and platelet count are stable. Creatinine is normal. Following my initial evaluation of the patient, he was able to be placed on a spontaneous awakening trial, which she completed. The patient does have a discernible air leak noted with deflation of the area relief pilot balloon. Accordingly, the patient completed a spontaneous breathing trial without complication. He is alert and able to follow commands appropriately. Objective Data Objective Data The patient's most recent lab work, culture data and imaging studies have all been personally reviewed. Surface echocardiogram revealed normal LV size and function with an ejection fraction of 60%. Sputum culture is pending. Vital Signs: Vital Signs Temp Pulse Resp BP Pulse Ox O2 Del Method FiO2 98.6 F 47 L 12 167/88 H 98 Mechanical Ventilator 21 12/04/24 05:00 12/04/24 06:00 12/04/24 06:00 12/04/24 06:00 12/04/24 06:00 12/04/24 06:00 12/04/24 06:00 Oxygen Delivery Method Mechanical Ventilator Weight: 203 lb 4.259 oz Body Mass Index (BMI) 30.1 Intake & Output: Intake and Output for Last 24 Hours 12/02/24 12/03/24 12/04/24 23:59 23:59 23:59 Intake Total 5820.85 / 5861.75 4850.02 / 4977.02 492.65 / 492.65 Output Total 3675 / 3675 3100 / 3100 325 / 325 Balance 2145.85 / 2186.75 1750.02 / 1877.02 167.65 / 167.65 Lab / Micro Data Attestation: I reviewed the patient's lab results. 12/04/24 04:26 12/04/24 04:26 Labs: Laboratory Results - last 24 hr 12/03/24 10:15: Troponin T High Sens 11 12/03/24 12:00: Troponin T Hi Sens 2 Hr 9 12/04/24 04:26: WBC 8.8, RBC 4.69, Hgb 14.6, Hct 43.7, MCV 93.2, MCH 31.1, MCHC 33.4, RDW Std Deviation 41.2, RDW Coeff of Hue 12.0, Plt Count 200, MPV 10.7, Immature Gran % (Auto) 0.300, Neut % (Auto) 81.4 H, Lymph % (Auto) 10.6 L, [place] % (Auto) 7.5, Eos % (Auto) 0.1, Baso % (Auto) 0.1, Absolute Neuts (auto) 7.1, Absolute Lymphs (auto) 0.93, Nucleated RBC % 0, Sodium 141, Potassium 4.3, Chloride 107, Carbon Dioxide 24.3, Anion Gap 10, BUN 21 H, Creatinine 0.57 L, Estim Creat Clear Calc 160.38, Est GFR (MDRD) Non-Af 115, BUN/Creatinine Ratio 37.9 H, Glucose 144 H, Calcium 8.5 Micro: Microbiology 11/30/24 15:45 Sputum, Induced/Lukens Gram Stain - Final 11/30/24 15:45 Sputum, Induced/Lukens Respiratory Culture - Preliminary Physical Exam Const Constitutional Narrative: Remains intubated and mechanically ventilated. HEENT normocephalic and head/scalp atraumatic Mouth: endotracheal tube in place and OG tube in place Eyes EOMs intact bilaterally and conjunctivae normal Neck supple General: trachea midline Chest inspection of chest normal Resp normal respiratory effort Auscultation: Negative for rales, rhonchi or wheezes Cardio S1 normal heart sound and S2 normal heart sound Rate: bradycardia GI normal to inspection, nondistended, normoactive bowel sounds Extremity no clubbing, cyanosis or edema Skin no rashes or lesions noted Neuro Neuro Narrative: Alert and able to follow commands appropriately. Charges/Coding Procedures Hospitalists Procedures: [id number] Critical Care 1st Hr
[2024-12-04] MEDS: Famotidine 200 MG/20 ML MDV 20 MG in 0.9% Normal Saline (Pres. free 8 ML 300 MG IV ×2 (10:36→21:29)
--- NOTE | 2024-12-04 10:46 | PN_ITS ---
Subjective Subjective Patient seen and examined. He was extubated this morning. He is on room air. He had no complaints. Review of systems otherwise negative. Objective Data Objective Data Vital Signs: Vital Signs Temp Pulse Resp BP Pulse Ox O2 Del Method FiO2 99.1 F 56 L 22 H 168/91 H 91 Room Air 21 12/04/24 09:00 12/04/24 09:00 12/04/24 09:00 12/04/24 09:00 12/04/24 09:00 12/04/24 09:00 12/04/24 08:00 Oxygen Delivery Method Room Air Weight: 203 lb 4.259 oz Body Mass Index (BMI) 30.1 Intake & Output: Intake and Output for Last 24 Hours 12/02/24 12/03/24 12/04/24 23:59 23:59 23:59 Intake Total 5820.85 / 5861.75 5019.72 / 5146.72 1385.15 / 1385.15 Output Total 3675 / 3675 3100 / 3100 1974 / 1974 Balance 2145.85 / 2186.75 1919.72 / 2046.72 -589.85 / -589.85 Lab / Micro Data 12/04/24 04:26 12/04/24 04:26 Labs: Laboratory Results - last 24 hr 12/03/24 12:00: Troponin T Hi Sens 2 Hr 9 12/04/24 04:26: WBC 8.8, RBC 4.69, Hgb 14.6, Hct 43.7, MCV 93.2, MCH 31.1, MCHC 33.4, RDW Std Deviation 41.2, RDW Coeff of Hue 12.0, Plt Count 200, MPV 10.7, Immature Gran % (Auto) 0.300, Neut % (Auto) 81.4 H, Lymph % (Auto) 10.6 L, Rosebud % (Auto) 7.5, Eos % (Auto) 0.1, Baso % (Auto) 0.1, Absolute Neuts (auto) 7.1, Absolute Lymphs (auto) 0.93, Nucleated RBC % 0, Sodium 141, Potassium 4.3, Chloride 107, Carbon Dioxide 24.3, Anion Gap 10, BUN 21 H, Creatinine 0.57 L, Estim Creat Clear Calc 160.38, Est GFR (MDRD) Non-Af 115, BUN/Creatinine Ratio 37.9 H, Glucose 144 H, Calcium 8.5 Micro: Microbiology 11/30/24 15:45 Sputum, Induced/Lukens Gram Stain - Final 11/30/24 15:45 Sputum, Induced/Lukens Respiratory Culture - Preliminary Streptococcus pneumoniae Physical Exam Const alert, oriented x3, no apparent distress and average body habitus Constitutional Narrative: extubated this morning. Frail and weak General Appearance: cooperative HEENT normocephalic, head/scalp atraumatic and moist oral mucous membranes HEENT Narrative: Lip swelling has resolved. Eyes PERRL, EOMs intact bilaterally and conjunctivae normal Neck supple and no JVD Lymph Lymphatic: no lymphedema noted Chest inspection of chest normal Resp Resp Narrative: Mildly diminished breath sounds bibasilarly. No wheezes or crackles. On room air. Cardio regular rate, regular rhythm, S1 normal heart sound, S2 normal heart sound, no murmurs and peripheral pulses 2+ throughout GI normal to inspection, nondistended, normoactive bowel sounds, soft to palpation, non-tender and non-distended Extremity normal to inspection, normal capillary refill and no pedal edema General Extremity: no tenderness to palpation of joints or extremities Skin no rashes or lesions noted General Skin Exam: no breakdown Neuro CN's II-XII intact bilaterally, no focal motor deficits and no sensory deficits noted Neuro Narrative: i Motor Exam: general weakness Psych thought process normal and cooperative Appearance: appropriate Assessment & Plan Assessment/Plan (1) Angioedema: PLAN: Plan #Acute hypoxic respiratory failure due to angioedema of lips and tongue * Was admitted with a complaint of diffuse cool to swallowing and lip swelling as well as sore throat. He had copious secretions. He was emergently intubated. * He was extubated this morning. He is currently on room air. * patient has been having bradycardia and hypertension, making it diffult to extubate him * On IV solumedrol. Titrate oxygen to maintain saturation above 90%. * Angioedema thought to be due to JENNA inhibitor. Lisinopril discontinued. * Awaiting speech therapy evaluation after extubation. * #Probable aspiration pneumonitis: * Chest imaging done did show evidence of possible aspiration pneumonitis. * He was therefore started on empiric antibiotics- IV meropenem * Sputum Gram stain showing 1+ gram-positive cocci and 4+ WBC. Sputum cultures pending. * Management as under respiratory failure #Bradycardia: * Sinus bradycardia is improving. Heart rate is 56. * It is a sinus bradycardia. * Has been getting atropine prn. * 2D echo showed EF of 60% with no regional wall motion abnormalities and no evidence of diastolic dysfunction. #Hyperkalemia: resolved. #Angioedema: As above. #Hypertension: Lisinopril discontinued. On IV hydralazine as needed. DVT prophylaxis: Lovenox Charges/Coding Visit Charges Inpatient E&M: 33140 Subs Hosp L2
--- NOTE | 2024-12-04 10:52 | CASEMGMT ---
Social Work Pt was extubated. SW met w/pt, he is agreeable to completing Advance Directives. Pt completed LW and POA w/SW, put his son as HCPOA. SW provided pt the originals and copies, and copies placed on the chart. Pt also open to resources for self pay, and to speaking w/Fabiola from [employer]. GIRMA emailed Fabiola, she did try to see pt this morning and will return this afternoon. GIRMA provided resources to pt including information on [employer] and the [employer], [facility] assist, [facility], [employer], and prescription assistance programs. SW remains available for any additional resources to pt. RICCI [place]
[2024-12-04] MEDS: 0.9% Saline Lock 10 ML Syringe IV (18:06)
--- NOTE | 2024-12-04 18:15 | CON.PCM.CA_ITS ---
Assessment & Plan Assessment/Plan (1) Hypertension: PLAN: He does have a history of hypertension. His blood pressure is uncontrolled at this time where he may titrate up a calcium channel esperanza instead for blood pressure control. (2) Bradycardia: PLAN: He apparently was bradycardic while intubated and I suspect this was an exaggerated vagal response. At this particular time his heart rate appears to be stable and in good range and I would not recommend that we make any other changes. PLAN: Plan Will sign off at this time. HPI Consult Data Date of Consult: 12/04/24 HPI Narrative HPI Narrative: BENJAMIN HAWKINS, is a 59 M who presents to [facility] ED on 11/30/2024 with lip swelling and difficulty swallowing. He does have a history of hypertension and has been on an JENNA inhibitor for a while. It initially started with a sore throat and when he was seen in the emergency room it appeared that his lips as well as uvula were getting swollen he was intubated and the medication weaned off and successfully extubated. Prior to extubation the patient was noted to be bradycardic and I was called by the farm supervisor for evaluation and management of the bradycardia. Patient had undergone an echocardiogram which demonstrated preserved left ventricular systolic function. He denies any prior chest pain or shortness of breath or paroxysmal nocturnal dyspnea. [facility] Medical History Depression Hypertension Hypercholesteremia Myocardial infarct Home Medications ?Medication ?Instructions ?Recorded ?Last Taken ?Type lisinopril 20 mg tablet 20 mg PO DAILY blood pressur e 12/04/24 11/30/24 History sertraline 25 mg tablet (Zoloft) 25 mg PO DAILY mood 1 11/30/24 History trazodone 50 mg tablet 50 mg PO QHS insomnia 11/29/24 History Allergy/AdvReac Type Severity Reaction Status Date / Time lisinopril Allergy Severe Angioedema Verified 12/04/24 16:11 Penicillins Allergy Severe Hives Verified 12/04/24 16:11 Family History no significant family his Social History Smoking Status: Former smoker ROS Constitutional Constitutional: Denies fever(s) or weight loss Eyes Eyes: Reports systems reviewed and no addt'l complaints, except as documented ENT HEENT: Reports systems reviewed and no addt'l complaints, except as documented Cardiovascular Cardiovascular: Denies chest pain at rest, chest pain with activity, dyspnea at rest, dyspnea on exertion, edema, palpitations or paroxysmal nocturnal dyspnea Respiratory/Chest Respiratory/Chest: Denies dyspnea on exertion, productive cough, shortness of breath at rest or shortness of breath with exertion Gastrointestinal Gastrointestinal: Denies change in bowel habits, nausea, vomiting or weight changes Genitourinary Genitourinary: Denies difficulty urinating Musculoskeletal Musculoskeletal: Denies joint stiffness or muscle weakness Integumentary Integumentary: Denies lesions Neurologic Neurologic: Denies dizziness or syncope Psychiatric Psychiatric: Denies anxiety Endocrine Endocrinology: Denies excessive sweating or fatigue Hematologic/Lymphatic Hematologic/Lymphatic: Denies anemia Allergic/Immunologic Allergic/Immunologic: Denies seasonal rhinorrhea Physical Exam Const alert, oriented x3 and no apparent distress General Appearance: cooperative HEENT hearing grossly normal bilaterally Head and Scalp: atraumatic Eyes EOMs intact bilaterally Neck General: normal visual inspection Chest inspection of chest normal and palpation of chest normal Resp normal respiratory effort Auscultation: clear to auscultation bilaterally Cardio regular rate, regular rhythm, S1 normal heart sound and S2 normal heart sound Jugular Venous Distention: JVD GI normal to inspection, nondistended, normoactive bowel sounds Extremity normal capillary refill and no pedal edema Peripheral Pulses: Yes pulses 2+ throughout and femoral pulses present Skin no rashes or lesions noted Neuro oriented x3 and CN's II-XII intact bilaterally Psych Appearance: grossly normal and appropriate Objective Data Vital Signs: Vital Signs Temp Pulse Resp BP Pulse Ox O2 Del Method FiO2 98.3 F 69 17 161/101 H 97 Room Air 21 12/04/24 18:00 12/04/24 18:12 12/04/24 18:00 12/04/24 18:12 12/04/24 18:00 12/04/24 18:00 12/04/24 08:00 Oxygen Delivery Method Room Air Weight: 203 lb 4.259 oz Body Mass Index (BMI) 30.1 Intake & Output: Intake and Output for Last 24 Hours 12/02/24 12/03/24 12/04/24 23:59 23:59 23:59 Intake Total 5820.85 / 5861.75 5019.72 / 5146.72 1542.65 / 1542.65 Output Total 3675 / 3675 3100 / 3100 4575 / 4575 Balance 2145.85 / 2186.75 1919.72 / 2046.72 -3032.35 / -3032.35 Lab / Micro Data 12/04/24 04:26 12/04/24 04:26 Labs: Laboratory Results - last 24 hr 12/04/24 04:26: WBC 8.8, RBC 4.69, Hgb 14.6, Hct 43.7, MCV 93.2, MCH 31.1, MCHC 33.4, RDW Std Deviation 41.2, RDW Coeff of Hue 12.0, Plt Count 200, MPV 10.7, Immature Gran % (Auto) 0.300, Neut % (Auto) 81.4 H, Lymph % (Auto) 10.6 L, Fleming % (Auto) 7.5, Eos % (Auto) 0.1, Baso % (Auto) 0.1, Absolute Neuts (auto) 7.1, Absolute Lymphs (auto) 0.93, Nucleated RBC % 0, Sodium 141, Potassium 4.3, Chloride 107, Carbon Dioxide 24.3, Anion Gap 10, BUN 21 H, Creatinine 0.57 L, Estim Creat Clear Calc 160.38, Est GFR (MDRD) Non-Af 115, BUN/Creatinine Ratio 37.9 H, Glucose 144 H, Calcium 8.5 Micro: Microbiology 11/30/24 15:45 Sputum, Induced/Lukens Gram Stain - Final 11/30/24 15:45 Sputum, Induced/Lukens Respiratory Culture - Preliminary Streptococcus pneumoniae Cardiology Labs/Tests 12/04/24 04:26: WBC 8.8, RBC 4.69, Hgb 14.6, Hct 43.7, MCV 93.2, MCH 31.1, MCHC 33.4, Plt Count 200, MPV 10.7, Immature Gran % (Auto) 0.300, Neut % (Auto) 81.4 H, Lymph % (Auto) 10.6 L, Fleming % (Auto) 7.5, Eos % (Auto) 0.1, Baso % (Auto) 0.1, Absolute Neuts (auto) 7.1, Nucleated RBC % 0, Sodium 141, Potassium 4.3, Chloride 107, Carbon Dioxide 24.3, Anion Gap 10, BUN 21 H, Creatinine 0.57 L, Est GFR (MDRD) Non-Af 115, BUN/Creatinine Ratio 37.9 H, Glucose 144 H, Calcium 8.5 Rhythm: EKG: ECHO: Stress Test: Cardiac Cath: PCI: CT Surgery: Holter monitor: EPS: PPM: CXR: Chest CT Scan: Radiography Diagnostic Testing: Radiology Impression Chest X-Ray 12/04/24 06:00 IMPRESSION: Support lines/tubes in stable appropriate positioning. Shallow inspiration. No evidence of acute pulmonary disease. Reading Location: [id number] Risk Score for UA/STEMI Assesmment (YES = 1) Risk Stratification Applicable: No
[2024-12-05] VITALS (10 sets, daily range): BP systolic 128–186; BP diastolic 87–113; PULSE 56–81; RESP 15–27; TEMP 36.5; O2SAT 91–97; BMI 27.4
[2024-12-05] MEDS: Meropenem 1 GM in 0.9% Normal Saline (100mL MB+) 100 ML IV (05:46)
[2024-12-05] MEDS: 0.9% Saline Lock 10 ML Syringe IV (05:47)
[2024-12-05 05:59] LABS: Hematocrit 48.7 % (40-54); Hemoglobin 17.0 g/dL (13.0-16.5); Immature Granulocytes Count 0.050 X10^3/uL (0.0-0.0); Mean Corp Hgb Conc 34.9 g/dL (32-36); Mean Corpuscular Volume 88.4 fL (80-94); Mean Platelet Vol. 10.4 fl (6.2-12.0); NRBC Flagged by Analyzer 0 % (0-5); Platelet Count 240 K/mm3 (150-450); RBC Distribution Width CV 11.6 % (11.6-14.6); RBC Distribution Width SD 37.3 fl (35.1-43.9); Red Blood Count 5.51 M/mm3 (4.6-6.2); White Blood Count 9.6 K/mm3 (4.4-11.0)
[2024-12-05 06:11] LABS: Anion Gap 13 (5-15); BUN 16 mg/dL (4-19); BUN/Creat Ratio 27.2 RATIO (10-20); Calcium,Total 9.5 mg/dL (7.6-11.0); Carbon Dioxide 21.8 mmol/L (21.0-32.0); Chloride 102 mmol/L (98-108); Estimated Creatinine Clearance 138.14 ml/min (50-250); Glucose 127 mg/dL (70-99); Potassium 3.9 mmol/L (3.3-5.1)
--- NOTE | 2024-12-05 07:26 | PN.HOSP_ITS ---
Reason for Visit Chief Complaint: Lip swelling and difficulty swallowing Objective Data Objective Data Vital Signs: Vital Signs Temp Pulse Resp BP Pulse Ox O2 Del Method FiO2 97.7 F L 81 18 150/87 H 97 Room Air 21 12/05/24 00:00 12/05/24 07:00 12/05/24 07:00 12/05/24 07:00 12/05/24 07:00 12/05/24 07:00 12/04/24 08:00 Oxygen Delivery Method Room Air Weight: 186 lb 1.122 oz Body Mass Index (BMI) 27.4 Intake & Output: Intake and Output for Last 24 Hours 12/03/24 12/04/24 12/05/24 23:59 23:59 23:59 Intake Total 5019.72 / 5146.72 1582.65 / 1582.65 100 / 100 Output Total 3100 / 3100 7075 / 7725 1750 / 1750 Balance 1919.72 / 2046.72 -5492.35 / -6142.35 -1650 / -1650 Lab / Micro Data 12/05/24 05:35 12/05/24 05:35 Labs: Laboratory Results - last 24 hr 12/04/24 04:26: Complement C4 22 12/05/24 05:35: WBC 9.6, RBC 5.51, Hgb 17.0 H, Hct 48.7, MCV 88.4 D, MCH 30.9, MCHC 34.9, RDW Std Deviation 37.3, RDW Coeff of Hue 11.6, Plt Count 240, MPV 10.4, Immature Gran % (Auto) 0.500, Neut % (Auto) 78.3 H, Lymph % (Auto) 11.6 L, Turner % (Auto) 9.4, Eos % (Auto) 0.0, Baso % (Auto) 0.2, Absolute Neuts (auto) 7.5, Absolute Lymphs (auto) 1.11, Nucleated RBC % 0, Sodium 136, Potassium 3.9, Chloride 102, Carbon Dioxide 21.8, Anion Gap 13, BUN 16, Creatinine 0.59 L, Estim Creat Clear Calc 138.14, Est GFR (MDRD) Non-Af 113, BUN/Creatinine Ratio 27.2 H, Glucose 127 H, Calcium 9.5 Micro: Microbiology 11/30/24 15:45 Sputum, Induced/Lukens Gram Stain - Final 11/30/24 15:45 Sputum, Induced/Lukens Respiratory Culture - Preliminary Streptococcus pneumoniae Radiography Diagnostic Testing: Radiology Impression Chest X-Ray 12/04/24 06:00 IMPRESSION: Support lines/tubes in stable appropriate positioning. Shallow inspiration. No evidence of acute pulmonary disease. Reading Location: [id number] Assessment & Plan Assessment/Plan (1) Angioedema: PLAN: Plan #Acute hypoxic respiratory failure due to angioedema of lips and tongue * Was admitted with a complaint of diffuse cool to swallowing and lip swelling as well as sore throat. He had copious secretions. He was emergently intubated. * He was extubated this morning. He is currently on room air. * patient has been having bradycardia and hypertension, making it diffult to extubate him * On IV solumedrol. Titrate oxygen to maintain saturation above 90%. * Angioedema thought to be due to JENNA inhibitor. Lisinopril discontinued. * Awaiting speech therapy evaluation after extubation. * #Probable aspiration pneumonitis: * Chest imaging done did show evidence of possible aspiration pneumonitis. * He was therefore started on empiric antibiotics- IV meropenem * Sputum Gram stain showing 1+ gram-positive cocci and 4+ WBC. Sputum cultures pending. * Management as under respiratory failure #Bradycardia: * Sinus bradycardia is improving. Heart rate is 56. * It is a sinus bradycardia. * Has been getting atropine prn. * 2D echo showed EF of 60% with no regional wall motion abnormalities and no evidence of diastolic dysfunction. #Hyperkalemia: resolved. #Angioedema: As above. #Hypertension: Lisinopril discontinued. On IV hydralazine as needed. DVT prophylaxis: Lovenox
--- NOTE | 2024-12-05 07:32 | PCM.PN.INT ---
Assessment & Plan Assessment/Plan (1) Angioedema: PLAN: Plan RECOMMENDATIONS: 1. Continue antibiotics to complete 7 days of therapy. 2. Continue current antihypertensive regimen with additional titration, as needed. 3. Encourage incentive spirometer use and mobilize patient as tolerated. IMPRESSIONS: 1. Acute respiratory failure secondary to angioedema in the setting of JENNA inhibitor use Resolved. With supportive care, including corticosteroids, Benadryl and Pepcid, the patient has improved clinically. The patient was ultimately able to be extubated on December 04. Sputum is currently growing Streptococcus pneumonia. Therefore, recommend continuing antibiotics to complete 7 days of therapy. The patient is otherwise clinically stable on room air. 2. History of hypertension/symptomatic bradycardia Complicates care, management, recovery and prognosis. Bradycardia has resolved with cessation of sedative medications. Continue current antihypertensive regimen, with additional titration as needed. The patient will need to establish care with a PCP after discharge. This note was generated with [employer] dictation software. It may contain incorrect words, spelling, and punctuation that were not noted in checking the note before signing. Subjective Subjective The patient was seen and examined at the bedside this morning. Events from the last 24 hours have been reviewed. The patient is currently afebrile, hemodynamically stable and maintaining appropriate oxygen saturations on room air. The patient has done well following extubation yesterday. He was able to tolerate a diet without issue. The patient voiced his interest in being discharged today. Alternatively, he is requesting to leave AMA if this cannot be achieved this morning. White blood cell count is normal. Chemistry profile was unremarkable. Objective Data Objective Data The patient's most recent lab work, culture data and imaging studies have all been personally reviewed. Surface echocardiogram revealed normal LV size and function with an ejection fraction of 60%. Sputum culture was positive for rare Streptococcus pneumonia. Vital Signs: Vital Signs Temp Pulse Resp BP Pulse Ox O2 Del Method FiO2 97.7 F L 81 18 150/87 H 97 Room Air 21 12/05/24 00:00 12/05/24 07:00 12/05/24 07:00 12/05/24 07:00 12/05/24 07:00 12/05/24 07:00 12/04/24 08:00 Oxygen Delivery Method Room Air Weight: 186 lb 1.122 oz Body Mass Index (BMI) 27.4 Intake & Output: Intake and Output for Last 24 Hours 12/03/24 12/04/24 12/05/24 23:59 23:59 23:59 Intake Total 5019.72 / 5146.72 1582.65 / 1582.65 100 / 100 Output Total 3100 / 3100 7075 / 7725 1750 / 1750 Balance 1919.72 / 2046.72 -5492.35 / -6142.35 -1650 / -1650 Lab / Micro Data Attestation: I reviewed the patient's lab results. 12/05/24 05:35 12/05/24 05:35 Labs: Laboratory Results - last 24 hr 12/04/24 04:26: Complement C4 22 12/05/24 05:35: WBC 9.6, RBC 5.51, Hgb 17.0 H, Hct 48.7, MCV 88.4 D, MCH 30.9, MCHC 34.9, RDW Std Deviation 37.3, RDW Coeff of Hue 11.6, Plt Count 240, MPV 10.4, Immature Gran % (Auto) 0.500, Neut % (Auto) 78.3 H, Lymph % (Auto) 11.6 L, [place] % (Auto) 9.4, Eos % (Auto) 0.0, Baso % (Auto) 0.2, Absolute Neuts (auto) 7.5, Absolute Lymphs (auto) 1.11, Nucleated RBC % 0, Sodium 136, Potassium 3.9, Chloride 102, Carbon Dioxide 21.8, Anion Gap 13, BUN 16, Creatinine 0.59 L, Estim Creat Clear Calc 138.14, Est GFR (MDRD) Non-Af 113, BUN/Creatinine Ratio 27.2 H, Glucose 127 H, Calcium 9.5 Micro: Microbiology 11/30/24 15:45 Sputum, Induced/Lukens Gram Stain - Final 11/30/24 15:45 Sputum, Induced/Lukens Respiratory Culture - Preliminary Streptococcus pneumoniae Radiography Diagnostic Testing: Radiology Impression Chest X-Ray 12/04/24 06:00 IMPRESSION: Support lines/tubes in stable appropriate positioning. Shallow inspiration. No evidence of acute pulmonary disease. Reading Location: [id number] Physical Exam Const alert, oriented x3 and no apparent distress HEENT normocephalic, head/scalp atraumatic and moist oral mucous membranes Eyes EOMs intact bilaterally, conjunctivae normal and no scleral icterus Neck supple General: trachea midline Chest inspection of chest normal Resp normal respiratory effort Auscultation: Negative for rales, rhonchi or wheezes Cardio regular rate, regular rhythm, S1 normal heart sound and S2 normal heart sound GI normal to inspection, nondistended, normoactive bowel sounds Extremity no clubbing, cyanosis or edema Skin no rashes or lesions noted Neuro oriented x3, CN's II-XII intact bilaterally, moves all extremities and no focal motor deficits Psych cooperative and affect normal Charges/Coding Visit Charges Inpatient E&M: 77248 Subs Hosp L3
--- NOTE | 2024-12-05 08:20 | NURSING ---
Discussed at length the risk of signing out AMA with elevated BP and has not voided since ayala removed. Patient verbalizes understanding and still wishes to leave. Patient does not have a PCP, encouraged him to call [facility]y [facility] and make an appointment today, He is agreeable. AMA papers signed.
--- NOTE | 2024-12-05 08:21 | PCM.DC.SUM ---
Providers Date of Admission: 11/30/24 Date of Discharge: 12/05/24 Primary Care Physician: Far[facility] Consultations 11/30/24 15:53 Consult: Business Services Associate / Pulmonary Medicine Routine Consulting Provider: Intensivists/Pulmonary Med Reason for Consult: angioedema EMERGENT Consult: Yes Notified: Yes Date Notified: 11/30/24 Time Notified: 15:53 Method of Notification: ED Physician Initiated 11/30/24 18:59 Consult: Business Services Associate / Pulmonary Medicine Routine Consulting Provider: Intensivists/Pulmonary Med Reason for Consult: angioedema requring intubation EMERGENT Consult: No Notified: Yes Date Notified: 11/30/24 Time Notified: 20:11 Method of Notification: Text 12/04/24 07:18 Consult: Cardiology Routine Consulting Provider: Jose Armando Caldera Reason for Consult: Symptomatic Bradycardia EMERGENT Consult: No Notified: Yes Date Notified: 12/04/24 Time Notified: 07:19 Method of Notification: Verbal Reason For Visit: ANGIOEDEMA Diagnosis Discharge Diagnosis (1) Angioedema: Status: Acute Code(s): T78.3XXA - Angioneurotic edema, initial encounter Plan 59-year-old gentleman was admitted with lip swelling, difficulty swallowing and swelling of right side of face. Patient had lisinopril in the morning of the admission with no prior history of angioedema. He started having sore throat few days ago. #Acute hypoxic respiratory failure due to angioedema of lips and tongue Was admitted with a complaint of diffuse cool to swallowing and lip swelling as well as sore throat. He had copious secretions. He was emergently intubated. He was extubated on 12/04/2024. Currently patient pulse ox 96% on room air. No swelling of anterior/posterior part of tongue, oropharynx or posterior lateral wall of pharynx on exam. patient has been having bradycardia and hypertension, making it diffult to extubate him On IV solumedrol. Titrate oxygen to maintain saturation above 90%. Angioedema thought to be due to JENNA inhibitor. Lisinopril discontinued. Patient was evaluated by speech therapist and recommended with small bites sips slow rate with regular texture with thin liquids. Diagnosis pharyngeal dysphagia #Probable aspiration pneumonitis: Chest imaging done did show evidence of possible aspiration pneumonitis. He was therefore started on empiric antibiotics- IV meropenem Sputum Gram stain showing 1+ gram-positive cocci and 4+ WBC. Sputum cultures pending. Patient on IV meropenem, day 4 of IV antibiotic wants to sign AMA #Bradycardia: Sinus bradycardia is improving. Heart rate is 56. It is a sinus bradycardia. Has been getting atropine prn. 2D echo showed EF of 60% with no regional wall motion abnormalities and no evidence of diastolic dysfunction. #Hyperkalemia: resolved. #Angioedema: As above. #Hypertension: Lisinopril discontinued. On IV hydralazine as needed. 12/05: Blood pressure is high on the monitor systolic 170s. Patient recommended to stay to further control blood pressure but he refused. Signed AMA. DVT prophylaxis: Lovenox Patient signed AMA. Patient was given prescription for amlodipine and HCTZ. Also given prescription of Levaquin. Advised to call PCP to monitor blood pressure and further refill. Medications at Discharge Home Medications sertraline 25 mg tablet (Zoloft) 25 mg PO DAILY mood 12/04/24 trazodone 50 mg tablet 50 mg PO QHS insomnia 12/04/24 amlodipine 10 mg tablet 10 mg PO DAILY 30 days #30 tabs 12/05/24 hydrochlorothiazide 25 mg tablet 25 mg PO DAILY 30 days #30 tabs 12/05/24 levofloxacin 500 mg tablet 500 mg PO DAILY 4 days #4 tabs 12/05/24 Physical Exam Narrative Seen and examined Patient blood pressure is high but refusing to further stay. He does not want to stay to get the blood pressure controlled. Physical exam General: Alert, Oriented x3, Cooperative HEENT: Atraumatic, PERRLA, EOMI, Normocephalic. Oral: No erythema over base of tongue/lateral or posterior pharyngeal wall. Uvula visualized Neck: Supple, No JVD, Negative Carotid Bruits Chest wall/Lungs: Air entry diminished in bilateral lung bases. No crepitation/rhonchi Cardiovascular: Sinus rhythm, Normal S1,S2, No M/G/R Abdomen: Bowel Sounds Present, Soft, Non Tender, Non-Distended : No dysuria. No renal angle tenderness. No suprapubic tenderness. Extremities: No edema, Capillary Refill Less than 3 Seconds Skin: No rashes, No breakdown Musculoskeletal: No Tenderness to Palpation of Joints or Extremities Neurological: Cranial nerves II-XII grossly intact, DTR 2+/4. No acute focal neurological deficit. Psych/Mental Status: Flat affect, on antidepressant medications. No suicidal ideation or risk Weight / BMI Weight Weight: 186 lb 1.122 oz Body Mass Index (BMI) 27.4 ABG / Lab / Microbiology Data 12/05/24 05:35 12/05/24 05:35 Laboratory: Laboratory Results - last 24 hr 12/04/24 04:26: Complement C4 22 12/05/24 05:35: WBC 9.6, RBC 5.51, Hgb 17.0 H, Hct 48.7, MCV 88.4 D, MCH 30.9, MCHC 34.9, RDW Std Deviation 37.3, RDW Coeff of Hue 11.6, Plt Count 240, MPV 10.4, Immature Gran % (Auto) 0.500, Neut % (Auto) 78.3 H, Lymph % (Auto) 11.6 L, [place] % (Auto) 9.4, Eos % (Auto) 0.0, Baso % (Auto) 0.2, Absolute Neuts (auto) 7.5, Absolute Lymphs (auto) 1.11, Nucleated RBC % 0, Sodium 136, Potassium 3.9, Chloride 102, Carbon Dioxide 21.8, Anion Gap 13, BUN 16, Creatinine 0.59 L, Estim Creat Clear Calc 138.14, Est GFR (MDRD) Non-Af 113, BUN/Creatinine Ratio 27.2 H, Glucose 127 H, Calcium 9.5 Microbiology: Microbiology 11/30/24 15:45 Sputum, Induced/Lukens Gram Stain - Final 11/30/24 15:45 Sputum, Induced/Lukens Respiratory Culture - Preliminary Streptococcus pneumoniae Radiography Diagnostic Testing: Radiology Impression Chest X-Ray 12/04/24 06:00 IMPRESSION: Support lines/tubes in stable appropriate positioning. Shallow inspiration. No evidence of acute pulmonary disease. Reading Location: [id number] Instructions DC O2, CPAP, BIPAP Needs Home O2 Discharge instructions: No Meaningful Use Info Meaningful Use Meaningful Use Diagnoses (Choose all that apply): None applicable Discharge Plan Admission Admit Date/Time: 11/30/24 15:57 Attending Provider: Jerad Silva Primary Care Provider: Care Physician,No Primary Consulting Providers: Eleuterio Abdi; Hiro Sandoval; Markus Kaufman; Zachary Velasco; Cain Quevedo; Flash Hyatt; Jimi Hernandez; Leeanne Wakefield; Justin Gonzalez; Koby Woodward; Randy Mcginnis; Yashira Sharma; Sadia Ramirez; Xiao King; Robb Jackson; Frankie Savage; Blane Jj; Kory Power; Nicky Leon; Sumi Chow; Tello Gregorio; Kendall Garcia; Weston Acuna; Sujit Justin; Navneet Vicente; Laura Singh Instructions Forms: Work / School Excuse Discharge Orders/Prescriptions Prescriptions: New amlodipine 10 mg Tablet 10 mg PO DAILY 30 Days Qty: 30 0RF hydrochlorothiazide 25 mg Tablet 25 mg PO DAILY 30 Days Qty: 30 0RF levofloxacin 500 mg tablet 500 mg PO DAILY 4 Days Qty: 4 0RF Continued trazodone 50 mg tablet 50 mg PO QHS sertraline [Zoloft] 25 mg tablet 25 mg PO DAILY Discontinued lisinopril 20 mg tablet 20 mg PO DAILY Referrals / Follow Up: Care Physician,No Primary [Primary Care Provider, Medical] Disposition Disposition (needs filled in before D/C Order can be placed): Against Medical Advice Charges/Coding Visit Charges Inpatient E&M: 00408 Disch Hosp >30min
== END 2024-12-05 08:39 | disposition left against medical advice (07) | DRG 208 ==
LOC: ED 15:20 → ICU 18:20
PROVIDERS: Family Medicine; Internal Medicine Pulmonary Disease; Student in an Organized Health Care Education/Training Program; Admitting Provider Hospitalist; Emergency Provider Emergency Medicine; Visit Provider Internal Medicine
DX: J96.01 Acute respiratory failure with hypoxia (principal); J69.0 Pneumonitis due to inhalation of food and vomit; I10 Essential (primary) hypertension; F32.9 Major depressive disorder, single episode, unspecified; E78.00 Pure hypercholesterolemia, unspecified; E87.5 Hyperkalemia; R00.1 Bradycardia, unspecified; T78.3XXA Angioneurotic edema, initial encounter; Z53.29 Procedure and treatment not carried out because of patient's decision for other reasons; R13.13 Dysphagia, pharyngeal phase; T46.4X5A Adverse effect of angiotensin-converting-enzyme inhibitors, initial encounter; Z79.899 Other long term (current) drug therapy; Z87.891 Personal history of nicotine dependence
CPT/HCPCS: 31500; 31720; 36600; 51702; 71045; 80048; 80053; 82550; 82803; 83735; 84439; 84443; 84478; 84481; 84484; 85025; 85027; 85652; 86140; 86160; 86900; 86901; 87070; 87077; 87186; 87205; 92610; 93005; 93306; 94002; 94003; 94660; 94668; 94762; 97162; 97166; 97802; 99252; 99285; J2185; P9017; A4216; G0463; J2405